=== PATIENT | male | born 1965 | race Caucasian/White ===

== ENCOUNTER → 2018-04-08 10:12 | Outpatient (CLI) | payer OTHER, SELFPAY ==
--- NOTE | 2018-04-08 | DI.RAD.S_ITS ---
PROCEDURE: XR LUMBAR SPINE 2-3V INDICATIONS: BACK PAIN TECHNIQUE: 3 views of the lumbar spine were acquired. COMPARISON: [facility], CR, L-SPINE 2-3 VIEWS, 05/24/2012, 16:40. [facility], MR, L-SPINE WITHOUT CONTRAST, 06/10/2013, 18:56. FINDINGS: Bones: 5 [id number] vertebrae are present. Transitional anatomy with sacralization of L5. There is minimal retrolisthesis of L1 on L2. No vertebral body compression fractures. No suspicious bony lesions. There is mild degenerative disc disease at L1-L2, L2-L3, L3-L4 and L5-L5. Mild facet arthropathy is present at L5-S1. Soft tissues: Overlying bowel gas pattern is normal. No suspicious soft tissue calcifications. IMPRESSION: 1. Mild degenerative disc and facet disease. 2. Transitional anatomy again noted. Dictated by: Tae Guzman M.D. on 04/08/2018 at 15:45 Approved by: Tae Guzman M.D. on 04/08/2018 at 15:48
== END ==
PROVIDERS: Family Provider Family Medicine; PCP Family Medicine; Visit Provider Nurse Practitioner Family
DX: M54.9 Dorsalgia, unspecified (principal); M51.36 Other intervertebral disc degeneration, lumbar region; M47.817 Spondylosis without myelopathy or radiculopathy, lumbosacral region
CPT/HCPCS: 72100

== ENCOUNTER → 2018-10-27 11:39 | Outpatient (CLI) | payer OTHER, MEDICAID, SELFPAY ==
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
== END ==
PROVIDERS: PCP Family Medicine; Visit Provider Family Medicine
DX: N13.8 Other obstructive and reflux uropathy (principal)
CPT/HCPCS: 74176

== ENCOUNTER → 2018-11-23 16:45 | Outpatient (ROUT) | payer OTHER, MEDICAID, SELFPAY | PROVIDERS: PCP Family Medicine; Visit Provider Family Medicine | DX: N39.0 Urinary tract infection, site not specified (principal) | CPT/HCPCS: 87077; 87086; 87185; 87186 ==

== ENCOUNTER → 2019-03-19 09:36 | Outpatient (CLI) | payer OTHER, MEDICAID, SELFPAY ==
--- NOTE | 2019-03-19 | DI.MRI.S_ITS ---
PROCEDURE: MR LUMBAR SPINE WO CON INDICATIONS: RIGHT FOOT DROP,DDD TECHNIQUE: Noncontrast sagittal T1 spin echo and T2 fast echo, sagittal STIR, axial T1 and T2 fast spin echo through the lumbar spine. In cases with scoliosis, additional coronal T2 fast spin echo may be performed. COMPARISON: [facility], , L-SPINE WITHOUT CONTRAST, 06/10/2013, 18:56. FINDINGS: Image quality: Excellent. Alignment and Curvature: There is normal bony alignment. Bone Marrow: Marrow is of normal overall signal. No acute vertebral body compression fractures. Spinal Cord: Conus medullaris terminates at the L1 level. Visualized cord demonstrates normal signal and size. Paraspinous Soft Tissues: No paravertebral masses. Upper pole left renal cortical cysts again noted. These were present in 2013, also. L1-L2: Normal appearance. L2-L3: Normal appearance. L3-L4: Normal appearance except for slight facet osteoarthritis. L4-L5: Moderate degenerative disc disease, with disc height reduction and desiccation on sagittal imaging. Note is made of a broad-based posterior transverse disc bulge/protrusion that extends into the posterolateral recess and neural foramen on the left, combined with bilateral mild facet osteoarthritis to previous near severe foraminal stenosis on the left and only mild to moderate foraminal stenosis on the right. There is likelihood of significant asymmetric L4 nerve root impingement on the left as a result. L5-S1: Normal appearance. IMPRESSION: The degenerative disc disease and facet osteoarthritis along the lumbosacral spine is relatively mild, focally is most prominent at L4-L5 with mild interval worsening of the degenerative changes at this level, left greater than right, to include increase asymmetric left greater than right posterior disc bulge/protrusion and mild interval worsening of asymmetric left greater than right facet osteoarthritis. Significant spinal stenosis is present but mild at the left posterolateral recess, but foraminal stenosis has appreciably worsened with expected left greater than right impingement on the L4 nerve roots as a result. Dictated by: Gab Iyer M.D. on 03/21/2019 at 9:31 Approved by: Gab Iyer M.D. on 03/21/2019 at 9:37
== END ==
PROVIDERS: PCP Family Medicine; Visit Provider Family Medicine
DX: M21.371 Foot drop, right foot (principal); M51.36 Other intervertebral disc degeneration, lumbar region; M48.061 Spinal stenosis, lumbar region without neurogenic claudication; M47.816 Spondylosis without myelopathy or radiculopathy, lumbar region; M51.26 Other intervertebral disc displacement, lumbar region
CPT/HCPCS: 72148

== ENCOUNTER → 2019-05-09 15:40 | Outpatient (CLI) | payer OTHER, MEDICAID, SELFPAY ==
--- NOTE | 2019-05-09 | DI.MRI.S_ITS ---
PROCEDURE: MR LOWER LEG RT WO/W CON INDICATIONS: LESION ON RIGHT POPLITEAL NERVE TECHNIQUE: Noncontrast coronal T1 spin echo and STIR, sagittal T1 spin echo with fat saturation and STIR, axial T1 spin echo and T2 fast spin echo with fat saturation. After the administration of contrast, axial/sagittal/coronal T1 spin echo with fat saturation through the right tibia/fibula. COMPARISON: None. FINDINGS: Image quality: Excellent. Bones: The visualized bone marrow demonstrates normal signal on all sequences. The overlying cortex appears intact. No abnormal intraosseous enhancement. Soft tissues: No soft tissue masses are visualized. There is geographic mild T2 hyperintensity involving the peroneal musculature as well as the tibialis anterior. There is also mild patchy muscle edema present within the medial gastrocnemius for example image 14/8, technically non-specific. No definite muscle atrophy IMPRESSION: Geographic diffuse muscle edema involving the peroneal longus, brevis and tibialis anterior suggestive of mild denervation versus less likely myositis. No discrete mass identified within the popliteal fossa. No definite muscle atrophy seen. Additional patchy muscle edema involving the medial gastrocnemius, nonspecific finding Dictated by: Karlos Lock M.D. on 05/10/2019 at 10:21 Approved by: Karlos Lock M.D. on 05/10/2019 at 11:24
--- NOTE | 2019-05-09 15:46 | DI.CT.S_ITS ---
PROCEDURE: CT KIDNEY URETER BLADDER (KUB) INDICATIONS: KIDNEY STONE Lesion of lateral popliteal nerve TECHNIQUE: Noncontrast 5 mm thick sections acquired from the diaphragms to the symphysis. 5 mm thick coronal and sagittal reformats were then performed. For radiation dose reduction, the following was used: automated exposure control, adjustment of mA and/or kV according to patient size. COMPARISON: [facility], CT, CT KIDNEY URETER BLADDER (KUB), 10/27/2018, 11:52. FINDINGS: Image quality: Excellent. Lung bases: Left posterior lung base scarring. Otherwise clear lung bases. Heart size is normal. Very small pericardial effusion/thickening. Urinary system: Both kidneys are normal in size. In the lower pole of the right kidney, there are 2 large nonobstructing calcifications, the larger measuring 10 mm, and the smaller measuring 9 mm. No left intrarenal collecting system calcifications. There are 2 dominant cortical cysts in the mid and lower aspect of the left kidney and a smaller anterior lower pole cyst. These measure 4.5, 3.7, and 1.9 cm respectively. A few faint parenchymal calcifications are present in the left kidney. No hydronephrosis in either kidney. No hydroureter or ureteral calcifications. Bladder wall thickness is normal; no calcified bladder stones. Mild prostatomegaly. Other solid organs: Liver is normal in size. Gallbladder is decompressed. Pancreas is normal in contours. Spleen is surgically absent. Multiple small amorphous soft tissue masses are present in the left upper quadrant consistent with splenosis. No adrenal nodules. Peritoneum and bowel: Unenhanced bowel loops demonstrate normal wall thickness and caliber. Normal appendix. No free fluid or air. Nodes and vessels: No retroperitoneal or mesenteric adenopathy by size criteria. Aorta and inferior vena cava are normal in caliber. Abdominal wall: No ventral hernias. Pelvis: No free pelvic fluid. No inguinal hernias or adenopathy. Bones: No suspicious bony lesions. No vertebral body compression fractures. IMPRESSION: 1. Nonobstructing right intrarenal calcifications. 2. Left renal cysts. 3. Surgically absent spleen with resultant splenosis. 4. Mild prostatomegaly. Dictated by: Teetee Moya M.D. on 05/09/2019 at 17:30 Approved by: Teetee Moya M.D. on 05/09/2019 at 17:41
== END ==
PROVIDERS: PCP Family Medicine
DX: G57.31 Lesion of lateral popliteal nerve, right lower limb (principal); N20.0 Calculus of kidney; N28.1 Cyst of kidney, acquired; N40.0 Benign prostatic hyperplasia without lower urinary tract symptoms; Z90.81 Acquired absence of spleen
CPT/HCPCS: 73720; 74176; A9579

== ENCOUNTER → 2019-09-03 09:59 | Outpatient (CLI) | payer OTHER, MEDICAID, SELFPAY ==
[2019-09-03 12:04] LABS: Add Manual Diff / Slide Review NO; Basophils Absolute Auto 100 /uL (0-100); Basophils Percent Auto 1.3 % (0-2); Eosinophils Absolute Auto 300 /uL (0-450); Eosinophils Percent Auto 2.6 % (2-4); Hematocrit 43.6 % (41-53); Hemoglobin 14.6 g/dL (13.5-17.5); Lymphocytes Absolute Auto 4300 /uL (1100-4500); Lymphocytes Percent Auto 42.9 % (25-40); Mean Corpuscular HGB Conc 33.5 % (30-36); Mean Corpuscular Hemoglobin 32.5 PG (26-34); Mean Corpuscular Volume 97.2 fL (80-100); Monocytes Absolute Auto 700 /uL (0-900); Monocytes Percent Auto 6.7 % (3-14); Neutrophils Absolute Auto 4600 /uL (1500-7000); Neutrophils Percent Auto 46.5 % (50-75); Platelet Count 311 X10^3/uL (150-400); Red Blood Cell Count 4.48 X10^6/uL (4.5-5.9); Red Cell Distribution Width 13.6 % (11.6-14.8)
[2019-09-03 12:32] LABS: Alanine Aminotransferase 17 IU/L (<50); Albumin 4.1 g/dL (3.5-5.0); Albumin Globulin Ratio 1.8 (1.0-2.8); Alkaline Phosphatase 52 U/L (38-126); Aspartate Aminotransferase 21 IU/L (17-59); BUN Creatinine Ratio 23.2 (6-22); Bilirubin Total 0.6 mg/dL (0.2-1.3); Blood Urea Nitrogen 23 mg/dL (9-20); Calcium 10.5 mg/dL (8.4-10.2); Carbon Dioxide 28 mmol/L (22-32); Chloride 106 mmol/L (98-107); Cholesterol 165 mg/dL (140-199); Estimated Glomerular Filt Rate > 60.0 mL/min (>60); Globulin 2.3 g/dL (1.7-4.1); Glucose 110 mg/dL (70-100); HDL Cholesterol 89 mg/dL (40-60); HEMOLYSIS < 15 (0-50); LDL Cholesterol Calculated 68 mg/dL (<100); Lipase 101 U/L (23-300); Sodium 138 mmol/L (137-145); Total Protein 6.4 g/dL (6.3-8.2); Triglycerides 40 mg/dL (35-150)
[2019-09-03 12:41] LABS: Erythrocyte Sedimentation Rate 1 MM/HR (0-15); LDL Cholesterol Direct 65 mg/dL (<100)
[2019-09-03 13:00] LABS: TSH w/ Reflex to FT4 2.28 uIU/mL (0.47-4.68)
[2019-09-03 13:01] LABS: C-Reactive Protein Quant < 0.5 mg/dL (<1.0)
== END ==
PROVIDERS: PCP Family Medicine; Referring Provider Family Medicine; Visit Provider Family Medicine
DX: R63.4 Abnormal weight loss (principal); M21.371 Foot drop, right foot; N39.0 Urinary tract infection, site not specified; F41.8 Other specified anxiety disorders; E83.52 Hypercalcemia
CPT/HCPCS: 36415; 80053; 80061; 83690; 83721; 84443; 85025; 85651; 86140; 87086

== ENCOUNTER 2019-09-24 10:02 | Emergency (ER) | payer OTHER, SELFPAY ==
[2019-09-24 10:26] VITALS: BP 160/82; PULSE 65; RESP 18; TEMP 36.5; O2SAT 98; BMI 21.5
[2019-09-24 11:00] VITALS: BP 151/73; PULSE 53; O2SAT 97
--- NOTE | 2019-09-24 11:26 | ED_ITS ---
HPI - Back Pain/Injury <JONNY Goel - Last Filed: 09/24/19 12:54> General Chief Complaint: Back Pain/Injury Stated Complaint: THREW OUT BACK AT WORK, CAN HARDLY MOVE Time Seen by Provider: 09/24/19 11:06 Source: patient Mode of arrival: Ambulatory Limitations: no limitations History of Present Illness HPI Narrative: This is a 54 year male, smoker, who has chronic medical history left low back pain since 2012, decreased sensation in right lower leg, kidney stone with lithotripsy presents to ED with chief complain of recurring left low back pain since yesterday morning when he woke up. He reports previous evening it felt a little sore when he went to bed. Reports pain is located in left low back wrapping around his waist without radiation down to his legs as the previous back pain. Pain increases with bending over, twisting, getting up bend down and improves with resting in bed. Patient reports this pain does not feel like stone pain in characters and also in location. Patient had lithotripsy surgery a month ago for kidney stone measuring about 11 mm. He denies hematuria, urgency, frequency, or dysuria. He denies fever, chills, rash, nausea, vomiting, saddle anesthesia, incontinence for bowel and bladder. Patient was seen by Dr. Chinchilla for steroid injection in his back in the past. He was evaluated by Dr. Raphael for his chronic back pain and decrease sensation in his lower right leg and is currently waiting for an evaluation by neurologist. 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 Related Data Home Medications Medication Instructions Recorded Confirmed citalopram 10 mg tablet 10 mg PO DAILY 04/30/18 11/18/18 tamsulosin 0.4 mg capsule 0.4 mg PO DAILY 11/18/18 11/18/18 ibuprofen 200 mg tablet 600 mg PO BID PRN tab 11/23/18 11/23/18 Previous Rx's Medication Instructions Recorded cyclobenzaprine 10 mg PO BID PRN #14 tab 09/24/19 lidocaine 1 patch TOP DAILY #30 each 09/24/19 Allergies Allergy/AdvReac Type Severity Reaction Status Date / Time ciprofloxacin [From Cipro] Allergy Intermediate facial Verified 09/24/19 10:36 redness and burning Review of Systems <JONNY Goel - Last Filed: 09/24/19 12:54> Review of Systems Narrative: General: Denies fever, chills, fatigue, malaise, sweats. HEENT: Denies sinus pain, ear pain, sore throat, difficulty swallowing, dizziness. Respiratory: Denies dyspnea, cough, wheezing, hemoptysis, sputum. Cardiovascular: Denies chest pain, palpitations, orthopnea, edema. Gastrointestinal: Denies nausea, vomiting, abdominal pain, diarrhea, constipation, melena. : Denies dysuria, frequency, incontinence, hematuria, urinary retention. Musculoskeletal: See HPI Skin: Denies rash, skin lesions, or other. Neurologic: Denies weakness, headache, numbness, change in speech, confusion, seizures, incoordination. Psychiatric: No concerning psychosocial issues. 12-point review of systems is negative except for those stated above. Patient History <JONNY Goel - Last Filed: 09/24/19 12:54> Medical History Back pain (Acute) Kidney stone (Acute) Radiculopathy of leg (Acute) Surgical History H/O lithotripsy (Acute) Social History Smoking Status: Current every day smoker Smoking Status: Current every day smoker alcohol intake frequency: 0-2 drinks per day Substance Use Type: does not use Exam <JONNY Goel - Last Filed: 09/24/19 12:54> Narrative Exam Narrative: General appearance: well developed, well nourished, in no acute distress. Head: normocephalic, atraumatic, no scalp lesions, non-tender. ENT: Hearing grossly intact. Airway patent. Neck/Thyroid: neck supple, full range of motion, no visible masses or meningeal signs. No JVD, non-tender without lymphadenopathy. Skin: no suspicious rashes, lesions over visible areas. Warm and dry and appropriate color for ethnicity. Heart: no clubbing, no cyanosis, no edema. Lungs: Breathing even and unlabored. No stridor. No accessory muscles used. Able to speak in full sentences. Chest: normal shape and expansion. Abdomen: non-obese, non-distended. Neurologic: alert and oriented. 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 Psych: good eye contact, normal affect. Initial Vital Signs Initial Vital Signs: Vital Signs Temperature 97.7 F 09/24/19 10:26 Pulse Rate 65 09/24/19 10:26 Respiratory Rate 18 09/24/19 10:26 Blood Pressure 160/82 H 09/24/19 10:26 Pulse Oximetry 98 09/24/19 10:26 Back/Spine/Pelvis Back: normal to inspection, back tenderness, No crepitance, No CVA tenderness, No ecchymosis, No erythema, No mass and No warmth Thoracic/Lumbar Spine: thoracic and lumbar spine normal to inspection, bend over test abnormal, pain with thoraco-lumbar ROM, paraspinal tenderness (left lower lumbar), thoraco-lumbar ROM limited, No lumbar spinal tenderness and straight leg raise positive <Мария Fitch DO - Last Filed: 09/28/19 07:14> Initial Vital Signs Initial Vital Signs: Vital Signs Temperature 97.7 F 09/24/19 10:26 Pulse Rate 65 09/24/19 10:26 Respiratory Rate 18 09/24/19 10:26 Blood Pressure 160/82 H 09/24/19 10:26 Pulse Oximetry 98 09/24/19 10:26 Scores <JONNY Goel - Last Filed: 09/24/19 12:54> GCS Florentino coma scale eye opening: Spontaneous [place] coma scale verbal response: Orientated [place] coma scale motor response: Obey commands [place] coma scale total score: 15 Course <JONNY Goel - Last Filed: 09/24/19 12:54> Orders Ordered: Discontinued Medications Acetaminophen (Tylenol) 650 mg PO NOW ONE Stop: 09/24/19 11:22 Last Admin: 09/24/19 11:41 Dose: 650 mg Documented by: VERONICA Ketorolac Tromethamine (Toradol) 30 mg IM NOW ONE Stop: 09/24/19 11:22 Last Admin: 09/24/19 11:40 Dose: 30 mg Documented by: VERONICA Lidocaine (Lidoderm) 1 each TOP NOW ONE Stop: 09/24/19 11:23 Last Admin: 09/24/19 11:40 Dose: 1 each Documented by: VERONICA Vital Signs Vital signs: Vital Signs - 8 hr 09/24/19 10:26 09/24/19 11:00 Temperature 97.7 F Pulse Rate 65 53 L Respiratory Rate 18 Blood Pressure 160/82 H 151/73 H Pulse Oximetry 98 97 <Мария Fitch DO - Last Filed: 09/28/19 07:14> Orders Ordered: Discontinued Medications Acetaminophen (Tylenol) 650 mg PO NOW ONE Stop: 09/24/19 11:22 Last Admin: 09/24/19 11:41 Dose: 650 mg Documented by: VERONICA Ketorolac Tromethamine (Toradol) 30 mg IM NOW ONE Stop: 09/24/19 11:22 Last Admin: 09/24/19 11:40 Dose: 30 mg Documented by: VERONICA Lidocaine (Lidoderm) 1 each TOP NOW ONE Stop: 09/24/19 11:23 Last Admin: 09/24/19 11:40 Dose: 1 each Documented by: VERONICA Vital Signs Vital signs: Vital Signs - 8 hr 09/24/19 10:26 09/24/19 11:00 Temperature 97.7 F Pulse Rate 65 53 L Respiratory Rate 18 Blood Pressure 160/82 H 151/73 H Pulse Oximetry 98 97 MDM - Back Pain/Injury <JONNY Goel - Last Filed: 09/24/19 12:54> Differential Diagnosis Differential diagnosis: Likely lumbar radiculopathy, strain of lumbar region and other (Degenerative disc disease, herniated disc, spinal stenosis, kidney stone, pyelonephritis) Medical Records Attestation: I reviewed the patient's medical records. Lab Data Labs: Lab Results 09/24/19 09/24/19 Range/Units 11:30 11:30 Urine Color Cancelled Urine Appearance Cancelled Urine pH Cancelled Ur Specific [place] Cancelled Urine Protein Cancelled Urine Glucose (UA) Cancelled Urine Ketones Cancelled Urine Occult Blood Cancelled Urine Nitrate Cancelled Urine Bilirubin Cancelled Urine Urobilinogen Cancelled Ur Leukocyte Esterase Cancelled Urine RBC None seen Cancelled (0-5/HPF) Urine WBC 0-1/hpf Cancelled (0-5/HPF) Ur Squamous Epith Cells None seen Cancelled (0-5/HPF) Ur Transition Epith Cell Cancelled Ur Renal Epithelial Cell Cancelled Calcium Oxalate Crystal Cancelled Uric Acid Crystals Cancelled Triple Phos Crystals Cancelled Other Crystals Cancelled Amorphous Sediment Cancelled Urine Bacteria None seen Cancelled (None) Hyaline Casts Cancelled Granular Casts Cancelled RBC Casts Cancelled WBC Casts Cancelled Other Casts Cancelled Urine Mucus Cancelled Urine Trichomonas Cancelled Urine Yeast Cancelled Urine Sperm Cancelled Ur Culture Indicated? Cult not indicated Cancelled Micro UA Comment Cancelled Urine Dip Bedside Urine Glucose Negative Bedside Urine Bilirubin - Negative Bedside Urine Ketone - Negative Urine Specific [place] 1.010 Bedside Urine Occult Blood - Negative Bedside Urine pH 7.0 Bedside Urine Protein - Negative Bedside Urine Urobilinogen - Negative Bedside Urine Nitrite - Negative Bedside Urine Leukocytes +/- 15 Esterase MDM Narrative Medical decision making narrative: This is a 54 year male who presents to ED with nontraumatic left low lumbar discomfort since yesterday morning. 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 Patient has history of kidney stone but it does not appears to be this is the etiology. No hematuria or indication for UTI/pyelonephritis. Lumbar MRI test that was done in March 2019 indicates patient has degenerative disc disease most prominent at L4-L5 level worse in left side and asymmetric posterior disc bulge/protrusion and facet osteoarthritis. Also, there is mild spinal stenosis present on the L4 nerve roots. Since patient drove to ED, patient was medicated with toward our, Tylenol and lidocaine patch. Patient states he had taken Vicodin from kidney stone surgery yesterday for severe pain. Reports he has about 10 pills left. Discharging patient to home with work off note for rest, muscle relaxant Flexeril, lidocaine patch and advised to use [id number] Tylenol and or Motrin as needed. [place] Vicodin use for severe pain as needed but is not prescribing this today. Advised to follow up with primary care physician or contact Dr. Raphael if his back pain does not improve as expected. Patient reports pain has improved before leaving ED. No further questions expressed and he agrees with the treatment plan. <Мария Fitch, - Last Filed: 09/28/19 07:14> Lab Data Labs: Lab Results 09/24/19 09/24/19 Range/Units 11:30 11:30 Urine Color Cancelled Urine Appearance Cancelled Urine pH Cancelled Ur Specific [place] Cancelled Urine Protein Cancelled Urine Glucose (UA) Cancelled Urine Ketones Cancelled Urine Occult Blood Cancelled Urine Nitrate Cancelled Urine Bilirubin Cancelled Urine Urobilinogen Cancelled Ur Leukocyte Esterase Cancelled Urine RBC None seen Cancelled (0-5/HPF) Urine WBC 0-1/hpf Cancelled (0-5/HPF) Ur Squamous Epith Cells None seen Cancelled (0-5/HPF) Ur Transition Epith Cell Cancelled Ur Renal Epithelial Cell Cancelled Calcium Oxalate Crystal Cancelled Uric Acid Crystals Cancelled Triple Phos Crystals Cancelled Other Crystals Cancelled Amorphous Sediment Cancelled Urine Bacteria None seen Cancelled (None) Hyaline Casts Cancelled Granular Casts Cancelled RBC Casts Cancelled WBC Casts Cancelled Other Casts Cancelled Urine Mucus Cancelled Urine Trichomonas Cancelled Urine Yeast Cancelled Urine Sperm Cancelled Ur Culture Indicated? Cult not indicated Cancelled Micro UA Comment Cancelled Urine Dip Bedside Urine Glucose Negative Bedside Urine Bilirubin - Negative Bedside Urine Ketone - Negative Urine Specific [place] 1.010 Bedside Urine Occult Blood - Negative Bedside Urine pH 7.0 Bedside Urine Protein - Negative Bedside Urine Urobilinogen - Negative Bedside Urine Nitrite - Negative Bedside Urine Leukocytes +/- 15 Esterase Discharge Plan Departure Patient Disposition: Home Clinical Impression: Repetitive strain injury of lower back Qualifiers: Encounter type: initial encounter Qualified Code(s): S39.012A - Strain of muscle, fascia and tendon of lower back, initial encounter Discharge Date/Time: 09/24/19 13:16 Activity Restrictions/Additional Instructions: You have been diagnosed with [low back/lumbar strain. Urine test does not indicate infection and no hematuria.]. What to do: *Take your medications as directed. The prescription for Flexeril which is muscle relaxant and lidocaine patch for pain have been transmitted to [facility]. Please use this medications as needed. Lidocaine patch stays on for 12 hours and off for 12 hours. Please use [id number] Tylenol 650-1000 mg as needed up to 3 to 4 times a day. For an adult max dose of Tylenol is up to 3-4000 mg in 24 hour. Ibuprofen/Motrin 400-600 mg up to 3 times a day as needed with food for pain to decrease upsetting stomach. 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 Please use your Vicodin as needed for severe pain and Vicodin has Tylenol already mixed in. you can use warm pack/cool pack as needed for discomfort. *Follow up with your primary care provider in 2-3 days, call for an appointment. Let them know you were seen in the ED and that we asked you to be seen in follow up. *Return to ED if you have any new, worsening, or concerning symptoms, such as [chest pain, breathing difficulty, unable to tolerate fluids, incontinence, fever, rash, worsening weakness/numbness to lower extremities or any acute concerns]. Prescriptions: New cyclobenzaprine 10 mg tablet 10 mg PO BID PRN (Reason: muscle spasm) Qty: 14 RF: 0 lidocaine 5 % adhesive patch,medicated 1 patch TOP DAILY Qty: 30 RF: 0 No Action citalopram 10 mg tablet 10 mg PO DAILY RF: 0 tamsulosin [Flomax] 0.4 mg capsule 0.4 mg PO DAILY RF: 0 ibuprofen 200 mg tablet 600 mg PO BID PRNRF: 0 Referrals: Liliya Young MD [Primary Care Provider] - Stand Alone Forms: Work Release Note <Мария Fitch DO - Last Filed: 09/28/19 07:14> Cosign ED Attending Zeldaature Attestation: I WAS IMMEDIATELY AVAILABLE IN THE DEPARTMENT FOR CONSULTATION. DOCUMENTATION HAS BEEN REVIEWED. I AGREE WITH ASSESSMENT AND PLAN.
[2019-09-24] MEDS: KETOROLAC 60 MG/2 ML VIAL 30 MG IM (11:40)
[2019-09-24] MEDS: LIDOCAINE PATCH 1 EACH ADH..PATCH TOP (11:40)
[2019-09-24] MEDS: ACETAMINOPHEN 325 MG TABLET 650 MG PO (11:41)
[2019-09-24 12:31] LABS: Bacteria Urine None Seen; Culture Indicated Urine Cult Not Indicated; RBC Urine None Seen (0-5/HPF); Squamous Epithelial Cell Urine None Seen (0-5/HPF); WBC Urine 0-1/HPF (0-5/HPF)
[2019-09-24 12:58] VITALS: BP 153/77; PULSE 55; RESP 14; O2SAT 99
== END 2019-09-24 13:16 | disposition home or self-care (01) ==
PROVIDERS: Emergency Provider Nurse Practitioner Family; PCP Family Medicine
DX: S39.012A Strain of muscle, fascia and tendon of lower back, initial encounter (principal); X50.0XXA Overexertion from strenuous movement or load, initial encounter; Y99.0 Civilian activity done for income or pay
CPT/HCPCS: 81003; 81015; 96372; 99283; J1885

== ENCOUNTER → 2019-09-26 11:37 | Outpatient (CLI) | payer OTHER, SELFPAY ==
[2019-09-26 12:03] LABS: Ur Creatinine Normal (Normal); Ur Specific Gravity Normal (Normal); Urine pH Normal (Normal)
[2019-09-26 12:05] LABS: UR Morphine/Opiate cutoff 300 Negative (Negative); Urine Amphetamines Negative (Negative); Urine Barbiturates Negative (Negative); Urine Benzodiazepines Negative (Negative); Urine Cocaine Negative (Negative); Urine MDMA Negative (Negative); Urine Methadone Negative (Negative); Urine Methamphetamines Negative (Negative); Urine Oxycodone Negative (Negative); Urine Phencyclidine Negative (Negative); Urine Tetrahydrocannabinol Negative (Negative); Urine Tricyclic Antidepressant Negative (Negative)
== END ==
PROVIDERS: PCP Family Medicine; Referring Provider Nurse Practitioner; Visit Provider Nurse Practitioner
DX: Z04.89 Encounter for examination and observation for other specified reasons (principal)
CPT/HCPCS: 80305

== ENCOUNTER → 2019-10-04 11:57 | Outpatient (CLI) | payer OTHER, SELFPAY ==
--- NOTE | 2019-10-04 | DI.RAD.S_ITS ---
PROCEDURE: XR LUMBAR SPINE 2-3V INDICATIONS: BACK PAIN TECHNIQUE: 3 views of the lumbar spine were acquired. COMPARISON: [facility], MR, L-SPINE WITHOUT CONTRAST, 06/10/2013, 18:56. [facility], CR, L-SPINE 2-3 VIEWS, 05/24/2012, 16:40. [facility], CR, CHEST 2 VIEW, 04/23/2015, 12:36. [facility], , XR LUMBAR SPINE 2-3V, 04/08/2018, 10:24. FINDINGS: Bones: 5 [id number] vertebrae are present. There is transitional anatomy with sacralization of L5. There is minimal retrolisthesis of L1-L2. No vertebral body compression fractures. No suspicious bony lesions. Mild degenerative disc disease at L2-L3, L3-L4 and L4-L5. Mild facet arthropathy at L3-L4 and L4-L5. Soft tissues: Overlying bowel gas pattern is normal. No suspicious soft tissue calcifications. IMPRESSION: 1. Transitional anatomy with sacralization of L5. 2. Mild degenerative disc and facet disease. Dictated by: Tae Guzman M.D. on 10/04/2019 at 14:24 Approved by: Tae Guzman M.D. on 10/04/2019 at 14:38
== END ==
PROVIDERS: PCP Family Medicine; Referring Provider Family Medicine; Visit Provider Family Medicine
DX: M54.5 Low back pain (principal); M51.36 Other intervertebral disc degeneration, lumbar region; M47.816 Spondylosis without myelopathy or radiculopathy, lumbar region; M43.27 Fusion of spine, lumbosacral region
CPT/HCPCS: 72100

== ENCOUNTER 2019-10-28 09:00 | Outpatient (RCR) | payer OTHER, MEDICAID, SELFPAY ==
--- NOTE | 2019-10-14 10:14 | PT.OIE ---
Current Diagnoses Pain in left elbow (10/14/19) Muscle weakness (generalized) (10/14/19) Medial epicondylitis, left elbow (10/14/19) Lateral epicondylitis, left elbow (10/14/19) Past Medical History (Last Reviewed 09/24/19 @ 11:37 by JONNY Goel) Back pain (Acute) Kidney stone (Acute) Radiculopathy of leg (Acute) Past Surgical History (Last Reviewed 09/24/19 @ 11:37 by JONNY Goel) H/O lithotripsy (Acute) Visit Care Team Role Provider Type Liliya Young MD Attending Provider Physician Primary Care Provider Referring Provider Specialty: [facility] Address: [address] [place] [address], [facility] Email: [email or web address] [facility] Initial Evaluation PT-OP-A Visit Information Start: 10/14/19 09:39 Freq: Status: Active Protocol: Document 10/14/19 09:00 DCW (Rec: 10/14/19 10:14 [facility] [id number]) Out-Patient Physical Therapy Visit Information Visit Information Visit Type Initial Evaluation Visit Start Time 09:00 Visit Stop Time 09:40 Total Visit Minutes 40 Visit Number 1 Number of ACCOUNT EXECUTIVE KEY ACCOUNTS Visits 40 Evaluation Information Evaluation Date 10/14/19 PT-OP-B Current Condition Start: 10/14/19 09:39 Freq: Status: Active Protocol: Document 10/14/19 09:00 DCW (Rec: 10/14/19 10:14 [facility] [id number]) Current Condition History of Current Condition Onset Date 6 months Current Complaints L elbow pain History of Current Condition Pt is a 54 year old male presenting with a six month history of worsening left medial elbow pain. 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 Pt reports the pain just started fairly mildly one day, and just continued to get worse as he continued to work. Pt does not he has not been working the last three weeks, which has helped reduce his pain, but he still gets pretty sore whenever he has to use his arm. Admits that he just uses his right arm when the pain gets too bad, so it doesn 't really restrict his function. Treatment Goals Patient/Caregiver Goals I want to get back to working without this pain. PT-OP-C Subjective Start: 10/14/19 09:39 Freq: Status: Active Protocol: Document 10/14/19 09:00 DCW (Rec: 10/14/19 10:14 [facility] [id number]) OP-PT Subjective Patient Comments Patient Comments I assumed it would be gone by now, but it just will not get better. Patient Reported Progress Worse Patient Questionnaires Quick Dash- Upper Extremity Quick Dash UE Score 52.27 Quick Dash UE Impairment 40 to 59% Impaired (Score 40- 59) OP-PT Pain Assessment Pain Assessment Grid Paper Pain Assessment Grid Completed Yes Location Left Medial Elbow Intensity 4 Scale Used Numeric (0 - 10) Description Aching Pain Aggravating Factors ADL's,Activity Pain Alleviating Factors Rest PT-OP-F Manual Assessment Start: 10/14/19 09:39 Freq: Status: Active Protocol: Document 10/14/19 09:00 DCW (Rec: 10/14/19 10:14 [facility] [id number]) Manual Assessments Soft Tissue Assessment Soft Tissue Mobility Assessment Flexor Carpi Radialis moderate tone notable with palpation, tenderness 2/3: pain with wincing. Tenderness 3/4: Wincing and Withdraw along common flexor tendon and medial epicondyle PT-OP-K Range of Motion Start: 10/14/19 09:39 Freq: Status: Active Protocol: Document 10/14/19 09:00 DCW (Rec: 10/14/19 10:14 [facility] [id number]) Elbow/Forearm Range of Motion Elbow/Forearm Left Active Elbow/Forearm ROM WFL Yes ROM Testing Position Sitting Wrist Goniometric Range of Motion Wrist Left Wrist ROM WFL Yes ROM Limitations Comments Complaint of pain at end-range wrist flexion and radial deviation PT-OP-L Special Tests Start: 10/14/19 09:39 Freq: Status: Active Protocol: Document 10/14/19 09:00 DCW (Rec: 10/14/19 10:14 [facility] [id number]) Special Tests Elbow Special Tests Medial Epicondylitis Test Results Positive L PT-OP-M Strength Start: 10/14/19 09:39 Freq: Status: Active Protocol: Document 10/14/19 09:00 DCW (Rec: 10/14/19 10:14 [facility] [id number]) Elbow/Forearm Strength Elbow and Forearm Manual Muscle Testing Left Flexion (C6) 5 Normal Extension (C7) 5 Normal Pronation 4+ Good+ Supination 4+ Good+ Wrist Strength Wrist Manual Muscle Testing Left Flexion (C7) 4 Good Extension (C6) 5 Normal Ulnar Deviation 4+ Good+ Radial Deviation 4 Good Comments Complaint of pain with resisted flexion, radial deviation Hand Software Licensing Analyst/Pinch Strength Hand Dominance Hand Dominance Right Hand Strength Right Software Licensing Analyst (lbs) 105 Comments 3-trail average (100, 105, 110 ) Left Software Licensing Analyst (lbs) 76.67 Comments 3-trail average (75,75,80) PT-OP-Q Treatments Start: 10/14/19 09:39 Freq: Status: Active Protocol: Document 10/14/19 09:00 [facility] (Rec: 10/14/19 10:14 [facility] [id number]) Therapeutic Exercises Sitting Exercises 2 Sitting Exercise Name Software Licensing Analyst Strengthening Side left Resistance Green Thera-putty 1 Sitting Exercise Name Supination/Pronation Side left Equipment Used Hammer Manual Therapy Treatment Soft Tissue Mobilization 1 Body Location Common flexor tendon Mobilization Type Cross-Friction Intensity/Depth Moderate Body Position Sitting Taping 1 Body Location Medial Epicondyle Type of Tape Kinesio Tape PT-OP-T Assessment and Plan Start: 10/14/19 09:39 Freq: Status: Active Protocol: Document 10/14/19 09:00 [facility] (Rec: 10/14/19 10:14 [facility] [id number]) Physical Therapy Assessment Rehab Potential Rehabilitation Potential Good Evaluation Complexity Number of Personal Factors/Comorbidities 1-2 Number of Body Systems Impaired 1-2 Clinical Presentation at Evaluation Stable Impairments Impairments Functional Activities,Pain, Soft Tissue Mobility,Strength Goals Three Impairment FCR has moderate tone with 2/4 tenderness to palpation Prison Goal (LTG) Pt to exhibit ECR tone WNL and no tenderness LTG Duration 12/14/19 Two Impairment Pt has a left foundation assistant strength 38 pounds less than his right foundation assistant Instant Print Operator Goal (LTG) Pt to increase left foundation assistant strength to 95 pounds to demonstrate increased ability to perform job activities without pain LTG Duration 12/14/19 One Impairment Pt does not have an appropriate home exercise program Short Term Goal (STG) Pt to be independent and compliant with an appropriate HEP STG Duration 11/14/19 Assessment Summary Assessment Pt presents with signs and symptoms strongly consistent with left medial epicondylitis . Pt is restricted with use of left arm in work and during ADLs. Pt's pain is mainly point-specific on medial epicondyle and at the origin of his common flexor tendon. Pt also displays constant moderate tone through his flexor carpi radialis, which is in turn providing a constant shear force on his medial epicondyle. Pt should benefit from skilled therapy focusing on gentle strengthening while avoiding repetitive movements, STM to decrease tone, modalities including ultrasound and Iontophoresis, to help reduce tone and inflammation. Physical Therapy Plan Frequency and Duration Frequency of Treatment 2x/Week Duration of Treatment 8 weeks Plan of Care Start Date 10/14/19 Plan of Care End Date 12/09/19 Therapeutic Interventions Therapeutic Interventions Home Exercise Program,Joint Mobilizations,Manual Therapy, Patient/Caregiver Education, Self-Care/Home Management,Soft Tissue Mobilization,Taping, Therapeutic Exercises Modalities Cold Pack/Ice Massage,Electric Stimulation,Hot Packs, Iontophoresis,Ultrasound Other Therapeutic Interventions Iontophoresis /c Dexamethasone , 4 mg/mL Next Visit Focus/Plan Next Note Type Treatment Note Next Visit Plan Iontophoresis, strengthening, STM, US, K-tape
--- NOTE | 2019-10-14 10:15 | PT.OPPOC ---
Physical, Occupational & Speech Therapy At [facility] Current Diagnoses Pain in left elbow (10/14/19) Muscle weakness (generalized) (10/14/19) Medial epicondylitis, left elbow (10/14/19) Lateral epicondylitis, left elbow (10/14/19) Visit Care Team Role Provider Type Liliya Young MD Attending Provider Physician Primary Care Provider Referring Provider Specialty: Family Practice Address: [address] [place] [address], [facility] [place], [place], [facility] Email: [email or web address] Plan Of Care PT-OP-T Assessment and Plan Start: 10/14/19 09:39 Freq: Status: Active Protocol: Document 10/14/19 09:00 DCW (Rec: 10/14/19 10:14 DCW [id number]) Physical Therapy Assessment Rehab Potential Rehabilitation Potential Good Evaluation Complexity Number of Personal Factors/Comorbidities 1-2 Number of Body Systems Impaired 1-2 Clinical Presentation at Evaluation Stable Impairments Impairments Functional Activities,Pain, Soft Tissue Mobility,Strength Goals Three Impairment FCR has moderate tone with 2/4 tenderness to palpation Aircraft Powerplant Repairer Goal (LTG) Pt to exhibit ECR tone WNL and no tenderness LTG Duration 12/14/19 Two Impairment Pt has a left operations executive strength 38 pounds less than his right operations executive Aircraft Powerplant Repairer Goal (LTG) Pt to increase left operations executive strength to 95 pounds to demonstrate increased ability to perform job activities without pain LTG Duration 12/14/19 One Impairment Pt does not have an appropriate home exercise program Short Term Goal (STG) Pt to be independent and compliant with an appropriate HEP STG Duration 11/14/19 Assessment Summary Assessment Pt presents with signs and symptoms strongly consistent with left medial epicondylitis . Pt is restricted with use of left arm in work and during ADLs. Pt's pain is mainly point-specific on medial epicondyle and at the origin of his common flexor tendon. Pt also displays constant moderate tone through his flexor carpi radialis, which is in turn providing a constant shear force on his medial epicondyle. Pt should benefit from skilled therapy focusing on gentle strengthening while avoiding repetitive movements, STM to decrease tone, modalities including ultrasound and Iontophoresis, to help reduce tone and inflammation. Physical Therapy Plan Frequency and Duration Frequency of Treatment 2x/Week Duration of Treatment 8 weeks Plan of Care Start Date 10/14/19 Plan of Care End Date 12/09/19 Therapeutic Interventions Therapeutic Interventions Home Exercise Program,Joint Mobilizations,Manual Therapy, Patient/Caregiver Education, Self-Care/Home Management,Soft Tissue Mobilization,Taping, Therapeutic Exercises Modalities Cold Pack/Ice Massage,Electric Stimulation,Hot Packs, Iontophoresis,Ultrasound Other Therapeutic Interventions Iontophoresis /c Dexamethasone , 4 mg/mL Next Visit Focus/Plan Next Note Type Treatment Note Next Visit Plan Iontophoresis, strengthening, STM, US, K-tape Plan of Care Dates Plan of Care Start Date 10/14/19 Plan of Care End Date 12/09/19 Electronically Signed by: Jose M Balbuena, PT 10/14/19 1015 Please Sign and Return: I have reviewed this Plan of Care and certify that the skilled therapy services above are required to meet the patient?s needs. Physician Signature Date Printed Name and Credentials Clinical Instructor Signature Printed Name and Credentials
--- NOTE | 2019-10-21 14:33 | PT.OTN ---
Current Diagnoses Pain in left elbow (10/21/19) Muscle weakness (generalized) (10/21/19) Medial epicondylitis, left elbow (10/21/19) Lateral epicondylitis, left elbow (10/21/19) Physical Therapy Treatment Note PT-OP-A Visit Information Start: 10/14/19 09:39 Freq: Status: Active Protocol: Document 10/21/19 13:45 DCW (Rec: 10/21/19 14:32 DCW [id number]) Out-Patient Physical Therapy Visit Information Visit Information Visit Type Treatment Note Visit Start Time 13:45 Visit Stop Time 14:30 Total Visit Minutes 45 Visit Number 2 Number of SUBSTATION OPERATOR Visits 0 PT-OP-B Current Condition Start: 10/14/19 09:39 Freq: Status: Active Protocol: Document 10/14/19 09:00 DCW (Rec: 10/14/19 10:14 DCW [id number]) Current Condition History of Current Condition Onset Date 6 months Current Complaints L elbow pain History of Current Condition Pt is a 54 year old male presenting with a six month history of worsening left medial elbow pain. Pt works in a [employer]. Pt reports the pain just started fairly mildly one day, and just continued to get worse as he continued to work. Pt does not he has not been working the last three weeks, which has helped reduce his pain, but he still gets pretty sore whenever he has to use his arm. Admits that he just uses his right arm when the pain gets too bad, so it doesn 't really restrict his function. Treatment Goals Patient/Caregiver Goals I want to get back to working without this pain. PT-OP-C Subjective Start: 10/14/19 09:39 Freq: Status: Active Protocol: Document 10/21/19 13:45 DCW (Rec: 10/21/19 14:32 DCW [id number]) OP-PT Subjective Patient Comments Patient Comments It's still sore, but I haven' t really been working, so that seems to make a difference. PT-OP-F Manual Assessment Start: 10/14/19 09:39 Freq: Status: Active Protocol: Document 10/14/19 09:00 DCW (Rec: 10/14/19 10:14 DCW [id number]) Manual Assessments Soft Tissue Assessment Soft Tissue Mobility Assessment Flexor Carpi Radialis moderate tone notable with palpation, tenderness 2/3: pain with wincing. Tenderness 3/4: Wincing and Withdraw along common flexor tendon and medial epicondyle PT-OP-K Range of Motion Start: 10/14/19 09:39 Freq: Status: Active Protocol: Document 10/14/19 09:00 DCW (Rec: 10/14/19 10:14 DCW [id number]) Elbow/Forearm Range of Motion Elbow/Forearm Left Active Elbow/Forearm ROM WFL Yes ROM Testing Position Sitting Wrist Goniometric Range of Motion Wrist Left Wrist ROM WFL Yes ROM Limitations Comments Complaint of pain at end-range wrist flexion and radial deviation PT-OP-L Special Tests Start: 10/14/19 09:39 Freq: Status: Active Protocol: Document 10/14/19 09:00 DCW (Rec: 10/14/19 10:14 DCW [id number]) Special Tests Elbow Special Tests Medial Epicondylitis Test Results Positive L PT-OP-M Strength Start: 10/14/19 09:39 Freq: Status: Active Protocol: Document 10/14/19 09:00 DCW (Rec: 10/14/19 10:14 DCW [id number]) Elbow/Forearm Strength Elbow and Forearm Manual Muscle Testing Left Flexion (C6) 5 Normal Extension (C7) 5 Normal Pronation 4+ Good+ Supination 4+ Good+ Wrist Strength Wrist Manual Muscle Testing Left Flexion (C7) 4 Good Extension (C6) 5 Normal Ulnar Deviation 4+ Good+ Radial Deviation 4 Good Comments Complaint of pain with resisted flexion, radial deviation Hand Chief Accounting Officer/Pinch Strength Hand Dominance Hand Dominance Right Hand Strength Right Chief Accounting Officer (lbs) 105 Comments 3-trail average (100, 105, 110 ) Left Chief Accounting Officer (lbs) 76.67 Comments 3-trail average (75,75,80) PT-OP-Q Treatments Start: 10/14/19 09:39 Freq: Status: Active Protocol: Document 10/21/19 13:45 DCW (Rec: 10/21/19 14:32 DCW [id number]) Therapeutic Exercises Sitting Exercises 4 Sitting Exercise Name Flexbar - Bend, twist Side bilateral Resistance Red 3 Sitting Exercise Name 4-way wrist flexion Side left Resistance Lv 3 Equipment Used T-band Comments x20 Manual Therapy Treatment Soft Tissue Mobilization 2 Body Location Medial Epicondyle Mobilization Type Cross-Friction Intensity/Depth Moderate Body Position Sitting 1 Body Location Common flexor tendon Mobilization Type Cross-Friction,Sustained Pressure Intensity/Depth Moderate Body Position Sitting Taping 1 Body Location Medial Epicondyle Type of Tape Kinesio Tape PT-OP-R Modalities Start: 10/14/19 09:39 Freq: Status: Active Protocol: Document 10/21/19 13:45 DCW (Rec: 10/21/19 14:33 DCW [id number]) Ultrasound Therapy Treatment Left Medial Elbow Treatment Duration (minutes) 8 Patient Position Sitting Coupling Medium Ultrasound Gel Applicator Size (cm2) 2 Frequency Setting (mHz) 3 Duty Cycle 50% Intensity Setting (w/cm2) 1 PT-OP-T Assessment and Plan Start: 10/14/19 09:39 Freq: Status: Active Protocol: Document 10/21/19 13:45 DCW (Rec: 10/21/19 14:32 DCW [id number]) Physical Therapy Assessment Impairments Impairments Functional Activities,Pain, Soft Tissue Mobility,Strength Goals Three Impairment FCR has moderate tone with 2/4 tenderness to palpation Biomass Plant Manager Goal (LTG) Pt to exhibit ECR tone WNL and no tenderness LTG Duration 12/14/19 Two Impairment Pt has a left technical assistance consultant strength 38 pounds less than his right technical assistance consultant Senior Living Goal (LTG) Pt to increase left technical assistance consultant strength to 95 pounds to demonstrate increased ability to perform job activities without pain LTG Duration 12/14/19 One Impairment Pt does not have an appropriate home exercise program Short Term Goal (STG) Pt to be independent and compliant with an appropriate HEP STG Duration 11/14/19 Assessment Summary Assessment Pt tolerated treatment well, less tone in forearm today, appears to be doing well with HEP. Physical Therapy Plan Frequency and Duration Frequency of Treatment 2x/Week Duration of Treatment 8 weeks Plan of Care Start Date 10/14/19 Plan of Care End Date 12/09/19 Therapeutic Interventions Therapeutic Interventions Home Exercise Program,Joint Mobilizations,Manual Therapy, Patient/Caregiver Education, Self-Care/Home Management,Soft Tissue Mobilization,Taping, Therapeutic Exercises Modalities Cold Pack/Ice Massage,Electric Stimulation,Hot Packs, Iontophoresis,Ultrasound Other Therapeutic Interventions Iontophoresis /c Dexamethasone , 4 mg/mL Next Visit Focus/Plan Next Note Type Treatment Note Next Visit Plan Iontophoresis, strengthening, STM, US, K-tape
--- NOTE | 2019-10-28 09:44 | PT.OTN ---
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 Pt works in a [employer]. Pt reports the pain just started fairly mildly one day, and just continued to get worse as he continued to work. Pt does not he has not been working the last three weeks, which has helped reduce his pain, but he still gets pretty sore whenever he has to use his arm. Admits that he just uses his right arm when the pain gets too bad, so it doesn 't really restrict his function. Treatment Goals Patient/Caregiver Goals I want to get back to working without this pain. PT-OP-C Subjective Start: 10/14/19 09:39 Freq: Status: Active Protocol: Document 10/28/19 09:00 DCW (Rec: 10/28/19 09:43 DCW [id number]) OP-PT Subjective Patient Comments Patient Comments It's still hurting, but it's doing a lot better. PT-OP-F Manual Assessment Start: 10/14/19 09:39 Freq: Status: Active Protocol: Document 10/14/19 09:00 DCW (Rec: 10/14/19 10:14 DCW [id number]) Manual Assessments Soft Tissue Assessment Soft Tissue Mobility Assessment Flexor Carpi Radialis moderate tone notable with palpation, tenderness 2/3: pain with wincing. Tenderness 3/4: Wincing and Withdraw along common flexor tendon and medial epicondyle PT-OP-K Range of Motion Start: 10/14/19 09:39 Freq: Status: Active Protocol: Document 10/14/19 09:00 DCW (Rec: 10/14/19 10:14 DCW [id number]) Elbow/Forearm Range of Motion Elbow/Forearm Left Active Elbow/Forearm ROM WFL Yes ROM Testing Position Sitting Wrist Goniometric Range of Motion Wrist Left Wrist ROM WFL Yes ROM Limitations Comments Complaint of pain at end-range wrist flexion and radial deviation PT-OP-L Special Tests Start: 10/14/19 09:39 Freq: Status: Active Protocol: Document 10/14/19 09:00 DCW (Rec: 10/14/19 10:14 DCW [id number]) Special Tests Elbow Special Tests Medial Epicondylitis Test Results Positive L PT-OP-M Strength Start: 10/14/19 09:39 Freq: Status: Active Protocol: Document 10/14/19 09:00 DCW (Rec: 10/14/19 10:14 DCW [id number]) Elbow/Forearm Strength Elbow and Forearm Manual Muscle Testing Left Flexion (C6) 5 Normal Extension (C7) 5 Normal Pronation 4+ Good+ Supination 4+ Good+ Wrist Strength Wrist Manual Muscle Testing Left Flexion (C7) 4 Good Extension (C6) 5 Normal Ulnar Deviation 4+ Good+ Radial Deviation 4 Good Comments Complaint of pain with resisted flexion, radial deviation Hand Child Psychiatrist/Pinch Strength Hand Dominance Hand Dominance Right Hand Strength Right Child Psychiatrist (lbs) 105 Comments 3-trail average (100, 105, 110 ) Left Child Psychiatrist (lbs) 76.67 Comments 3-trail average (75,75,80) PT-OP-Q Treatments Start: 10/14/19 09:39 Freq: Status: Active Protocol: Document 10/28/19 09:00 DCW (Rec: 10/28/19 09:43 DCW [id number]) Therapeutic Exercises Sitting Exercises 5 Sitting Exercise Name Medial epicondyle extension stretch Side left 4 Sitting Exercise Name Flexbar - Bend, twist Side bilateral Resistance Red Manual Therapy Treatment Soft Tissue Mobilization 2 Body Location Medial Epicondyle Mobilization Type Cross-Friction Intensity/Depth Moderate Body Position Sitting 1 Body Location Common flexor tendon Mobilization Type Cross-Friction,Sustained Pressure Intensity/Depth Moderate Body Position Sitting Taping 1 Body Location Medial Epicondyle Type of Tape Kinesio Tape PT-OP-R Modalities Start: 10/14/19 09:39 Freq: Status: Active Protocol: Document 10/28/19 09:00 DCW (Rec: 10/28/19 09:44 DCW [id number]) Ultrasound Therapy Treatment Left Medial Elbow Treatment Duration (minutes) 8 Patient Position Sitting Coupling Medium Ultrasound Gel Applicator Size (cm2) 2 Frequency Setting (mHz) 3 Duty Cycle 50% Intensity Setting (w/cm2) 1 PT-OP-T Assessment and Plan Start: 10/14/19 09:39 Freq: Status: Active Protocol: Document 10/28/19 09:00 DCW (Rec: 10/28/19 09:43 DCW [id number]) Physical Therapy Assessment Impairments Impairments Functional Activities,Pain, Soft Tissue Mobility,Strength Goals Three Impairment FCR has moderate tone with 2/4 tenderness to palpation Care Home Goal (LTG) Pt to exhibit ECR tone WNL and no tenderness LTG Duration 12/14/19 Two Impairment 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 Notes noticeable, yet slow, progress. Physical Therapy Plan Frequency and Duration Frequency of Treatment 2x/Week Duration of Treatment 8 weeks Plan of Care Start Date 10/14/19 Plan of Care End Date 12/09/19 Therapeutic Interventions Therapeutic Interventions Home Exercise Program,Joint Mobilizations,Manual Therapy, Patient/Caregiver Education, Self-Care/Home Management,Soft Tissue Mobilization,Taping, Therapeutic Exercises Modalities Cold Pack/Ice Massage,Electric Stimulation,Hot Packs, Iontophoresis,Ultrasound Other Therapeutic Interventions Iontophoresis /c Dexamethasone , 4 mg/mL Next Visit Focus/Plan Next Note Type Treatment Note Next Visit Plan Iontophoresis, strengthening, STM, US, K-tape
--- NOTE | 2019-11-11 08:15 | PT.OTN ---
Current Diagnoses Pain in left elbow (10/28/19) Muscle weakness (generalized) (10/28/19) Medial epicondylitis, left elbow (10/28/19) Lateral epicondylitis, left elbow (10/28/19) Physical Therapy Treatment Note PT-OP-A Visit Information Start: 10/14/19 09:39 Freq: Status: Active Protocol: Document 11/11/19 07:31 SP (Rec: 11/11/19 10:33 SP [id number]) Out-Patient Physical Therapy Visit Information Visit Information Visit Type Treatment Note Visit Note Alternate LB (LNI) and L elbow tx's. Next appt LB 11/16. Visit Start Time 07:31 Visit Stop Time 08:15 Total Visit Minutes 44 Visit Number 4 Number of ECONOMIC FORECASTER Visits 1 PT-OP-B Current Condition Start: 10/14/19 09:39 Freq: Status: Active Protocol: Document 10/14/19 09:00 DCW (Rec: 10/14/19 10:14 DCW [id number]) Current Condition History of Current Condition Onset Date 6 months Current Complaints L elbow pain History of Current Condition Pt is a 54 year old male presenting with a six month history of worsening left medial elbow pain. Pt works in a [employer]. Pt reports the pain just started fairly mildly one day, and just continued to get worse as he continued to work. Pt does not he has not been working the last three weeks, which has helped reduce his pain, but he still gets pretty sore whenever he has to use his arm. Admits that he just uses his right arm when the pain gets too bad, so it doesn 't really restrict his function. Treatment Goals Patient/Caregiver Goals I want to get back to working without this pain. PT-OP-C Subjective Start: 10/14/19 09:39 Freq: Status: Active Protocol: Document 11/11/19 07:31 SP (Rec: 11/11/19 10:33 SP [id number]) OP-PT Subjective Patient Comments Patient Comments Pt reported can now move R ankle into DF AROM since last tx, very pleased but wants to work on strengthening and balance to improve walking on R LE. My L elbow doesn't hurt if isn't doing anything but when tries for instance opening up a jar hurts about 5/10 pain. PT-OP-F Manual Assessment Start: 10/14/19 09:39 Freq: Status: Active Protocol: Document 10/14/19 09:00 DCW (Rec: 10/14/19 10:14 [facility] [id number]) Manual Assessments Soft Tissue Assessment Soft Tissue Mobility Assessment Flexor Carpi Radialis moderate tone notable with palpation, tenderness 2/3: pain with wincing. Tenderness 3/4: Wincing and Withdraw along common flexor tendon and medial epicondyle PT-OP-K Range of Motion Start: 10/14/19 09:39 Freq: Status: Active Protocol: Document 10/14/19 09:00 DCW (Rec: 10/14/19 10:14 [facility] [id number]) Elbow/Forearm Range of Motion Elbow/Forearm Left Active Elbow/Forearm ROM WFL Yes ROM Testing Position Sitting Wrist Goniometric Range of Motion Wrist Left Wrist ROM WFL Yes ROM Limitations Comments Complaint of pain at end-range wrist flexion and radial deviation PT-OP-L Special Tests Start: 10/14/19 09:39 Freq: Status: Active Protocol: Document 10/14/19 09:00 DCW (Rec: 10/14/19 10:14 [facility] [id number]) Special Tests Elbow Special Tests Medial Epicondylitis Test Results Positive L PT-OP-M Strength Start: 10/14/19 09:39 Freq: Status: Active Protocol: Document 10/14/19 09:00 DCW (Rec: 10/14/19 10:14 [facility] [id number]) Elbow/Forearm Strength Elbow and Forearm Manual Muscle Testing Left Flexion (C6) 5 Normal Extension (C7) 5 Normal Pronation 4+ Good+ Supination 4+ Good+ Wrist Strength Wrist Manual Muscle Testing Left Flexion (C7) 4 Good Extension (C6) 5 Normal Ulnar Deviation 4+ Good+ Radial Deviation 4 Good Comments Complaint of pain with resisted flexion, radial deviation Hand Sheet Metal Apprentice/Pinch Strength Hand Dominance Hand Dominance Right Hand Strength Right Sheet Metal Apprentice (lbs) 105 Comments 3-trail average (100, 105, 110 ) Left Sheet Metal Apprentice (lbs) 76.67 Comments 3-trail average (75,75,80) PT-OP-Q Treatments Start: 10/14/19 09:39 Freq: Status: Active Protocol: Document 11/11/19 07:31 SP (Rec: 11/11/19 10:33 SP [id number]) Therapeutic Exercises Sitting Exercises 5 Sitting Exercise Name Medial epicondyle extension stretch Side left 3 Sitting Exercise Name 4-way wrist flexion Side left Resistance Lv 3 Equipment Used T-band Comments x20 each direction Manual Therapy Treatment Soft Tissue Mobilization 2 Body Location Medial Epicondyle Mobilization Type Cross-Friction Intensity/Depth Moderate Body Position Sitting 1 Body Location Common flexor tendon Mobilization Type Cross-Friction,Sustained Pressure Intensity/Depth Moderate Body Position Sitting Joint Mobilizations med, lat, inferior mobes Joint L Grade II Body Position Supine Comments using mob strap PT-OP-R Modalities Start: 10/14/19 09:39 Freq: Status: Active Protocol: Document 11/11/19 07:31 SP (Rec: 11/11/19 10:33 SP [id number]) Ultrasound Therapy Treatment Left Medial Elbow Treatment Duration (minutes) 8 Patient Position Sitting Coupling Medium Ultrasound Gel Applicator Size (cm2) 2 Frequency Setting (mHz) 3 Duty Cycle 50% Intensity Setting (w/cm2) 1 PT-OP-T Assessment and Plan Start: 10/14/19 09:39 Freq: Status: Active Protocol: Document 11/11/19 07:31 SP (Rec: 11/11/19 10:33 SP [id number]) Physical Therapy Assessment Goals Three Impairment FCR has moderate tone with 2/4 tenderness to palpation Long-Term Goal (LTG) Pt to exhibit ECR tone WNL and no tenderness LTG Duration 12/14/19 Two Impairment Pt has a left etcher electrolytic strength 38 pounds less than his right etcher electrolytic Electric Shaver Mechanic Goal (LTG) Pt to increase left etcher electrolytic strength to 95 pounds to demonstrate increased ability to perform job activities without pain LTG Duration 12/14/19 One Impairment Pt does not have an appropriate home exercise program Short Term Goal (STG) Pt to be independent and compliant with an appropriate HEP STG Duration 11/14/19 Assessment Summary Assessment Pt tolerated tx well, initiated medial, lateral, inferior ulnar-humeral mobes for decreased tightness reported in L elbow with report of no pain does feel little distraction stretch was helpful. Cuing given for set up and alignment during HEP 4 way wrist with resistance. Pt reports US does seem to help, responded well elbow feels litte looser at end of tx. Physical Therapy Plan Frequency and Duration Frequency of Treatment 2x/Week Duration of Treatment 8 weeks Plan of Care Start Date 10/14/19 Plan of Care End Date 12/09/19 Therapeutic Interventions Therapeutic Interventions Home Exercise Program,Joint Mobilizations,Manual Therapy, Patient/Caregiver Education, Self-Care/Home Management,Soft Tissue Mobilization,Taping, Therapeutic Exercises Modalities Cold Pack/Ice Massage,Electric Stimulation,Hot Packs, Iontophoresis,Ultrasound Other Therapeutic Interventions Iontophoresis /c Dexamethasone , 4 mg/mL Next Visit Focus/Plan Next Note Type Treatment Note Next Visit Plan Assess response to elbow tx next appt and NMES on R ankle DF and SLS added to HEP previous appt. Continue per PT POC: core strengthening, R LE DF activities, flexibility and improve R LE DF to support LS stabiliztaion. Recommended L SIJ release distraction if needed.
--- NOTE | 2020-04-19 15:03 | PT.OPDS ---
Current Diagnoses Pain in left elbow (10/28/19) Muscle weakness (generalized) (10/28/19) Medial epicondylitis, left elbow (10/28/19) Lateral epicondylitis, left elbow (10/28/19) Visit Care Team Role Provider Type Liliya Young MD Attending Provider Physician Primary Care Provider Referring Provider Specialty: [facility] Address: [address] [place] [address], [place], [place], [facility] Email: [email or web address] Visit Number Visit Number 4 Discharge Summary PT-OP-B Current Condition Start: 10/14/19 09:39 Freq: Status: Active Protocol: Document 10/14/19 09:00 DCW (Rec: 10/14/19 10:14 DCW [id number]) Current Condition History of Current Condition Onset Date 6 months Current Complaints L elbow pain History of Current Condition Pt is a 54 year old male presenting with a six month history of worsening left medial elbow pain. 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 Pt reports the pain just started fairly mildly one day, and just continued to get worse as he continued to work. Pt does not he has not been working the last three weeks, which has helped reduce his pain, but he still gets pretty sore whenever he has to use his arm. Admits that he just uses his right arm when the pain gets too bad, so it doesn 't really restrict his function. Treatment Goals Patient/Caregiver Goals I want to get back to working without this pain. PT-OP-C Subjective Start: 10/14/19 09:39 Freq: Status: Active Protocol: Document 11/11/19 07:31 SP (Rec: 11/11/19 10:33 SP [id number]) OP-PT Subjective Patient Comments Patient Comments Pt reported can now move R ankle into DF AROM since last tx, very pleased but wants to work on strengthening and balance to improve walking on R LE. My L elbow doesn't hurt if isn't doing anything but when tries for instance opening up a jar hurts about 5/10 pain. PT-OP-F Manual Assessment Start: 10/14/19 09:39 Freq: Status: Active Protocol: Document 10/14/19 09:00 DCW (Rec: 10/14/19 10:14 [facility] [id number]) Manual Assessments Soft Tissue Assessment Soft Tissue Mobility Assessment Flexor Carpi Radialis moderate tone notable with palpation, tenderness 2/3: pain with wincing. Tenderness 3/4: Wincing and Withdraw along common flexor tendon and medial epicondyle PT-OP-K Range of Motion Start: 10/14/19 09:39 Freq: Status: Active Protocol: Document 10/14/19 09:00 DCW (Rec: 10/14/19 10:14 [facility] [id number]) Elbow/Forearm Range of Motion Elbow/Forearm Left Active Elbow/Forearm ROM WFL Yes ROM Testing Position Sitting Wrist Goniometric Range of Motion Wrist Left Wrist ROM WFL Yes ROM Limitations Comments Complaint of pain at end-range wrist flexion and radial deviation PT-OP-L Special Tests Start: 10/14/19 09:39 Freq: Status: Active Protocol: Document 10/14/19 09:00 DCW (Rec: 10/14/19 10:14 [facility] [id number]) Special Tests Elbow Special Tests Medial Epicondylitis Test Results Positive L PT-OP-M Strength Start: 10/14/19 09:39 Freq: Status: Active Protocol: Document 10/14/19 09:00 DCW (Rec: 10/14/19 10:14 [facility] [id number]) Elbow/Forearm Strength Elbow and Forearm Manual Muscle Testing Left Flexion (C6) 5 Normal Extension (C7) 5 Normal Pronation 4+ Good+ Supination 4+ Good+ Wrist Strength Wrist Manual Muscle Testing Left Flexion (C7) 4 Good Extension (C6) 5 Normal Ulnar Deviation 4+ Good+ Radial Deviation 4 Good Comments Complaint of pain with resisted flexion, radial deviation Hand Hogshead Hand/Pinch Strength Hand Dominance Hand Dominance Right Hand Strength Right Hogshead Hand (lbs) 105 Comments 3-trail average (100, 105, 110 ) Left Hogshead Hand (lbs) 76.67 Comments 3-trail average (75,75,80) PT-OP-T Assessment and Plan Start: 10/14/19 09:39 Freq: Status: Active Protocol: Document 04/19/20 15:03 DCW (Rec: 04/19/20 15:03 [facility] [id number]) Physical Therapy Assessment Assessment Summary Assessment Pt has not made any further follow-up appointments, and has now not been seen in more than five months. Pt will be discharged from PT at this time, and will require a new referral in order to return to skilled therapy. Physical Therapy Plan Discharge Physical Therapy Discharge Reasons No Longer Attending PT
== END 2020-05-04 10:00 ==
LOC: PHYS 09:00
PROVIDERS: PCP Family Medicine; Referring Provider Family Medicine; Visit Provider Family Medicine
DX: M77.02 Medial epicondylitis, left elbow (principal); M25.522 Pain in left elbow; M62.81 Muscle weakness (generalized); M77.12 Lateral epicondylitis, left elbow
CPT/HCPCS: 97110; 97140; 97161

== ENCOUNTER 2019-12-05 09:45 | Outpatient (RCR) | payer OTHER, SELFPAY ==
--- NOTE | 2019-10-20 17:09 | PT.OIE ---
Current Diagnoses Other intervertebral disc degeneration, lumbosacral region (10/20/19) Strain of muscle, fascia and tendon of lower back, initial encounter (10/20/19) Past Medical History (Last Reviewed 09/24/19 @ 11:37 by JONNY Goel) Back pain (Acute) Kidney stone (Acute) Radiculopathy of leg (Acute) Past Surgical History (Last Reviewed 09/24/19 @ 11:37 by JONNY Goel) H/O lithotripsy (Acute) Visit Care Team Role Provider Type Liliya Yuong MD Attending Provider Physician Primary Care Provider Referring Provider Specialty: [facility] Address: [address] [place] [address], [facility] Email: [email or web address] Initial Evaluation PT-OP-A Visit Information Start: 10/20/19 16:23 Freq: Status: Active Protocol: Document 10/20/19 16:24 (Rec: 10/20/19 17:09 [email or web address]) Out-Patient Physical Therapy Visit Information Visit Information Visit Type Initial Evaluation Visit Start Time 14:32 Visit Stop Time 15:15 Total Visit Minutes 43 Visit Number 03/20 Number of BUSINESS SYSTEM CONSULTANT Visits 0 Evaluation Information Evaluation Date 10/20/19 PT-OP-B Current Condition Start: 10/20/19 16:23 Freq: Status: Active Protocol: Document 10/20/19 16:24 HH (Rec: 10/20/19 17:09 [email or web address]) Current Condition History of Current Condition Onset Date mid September Current Complaints L sided back pain, R foot drop , difficulty in walking History of Current Condition Pt is a 54 yo male here for new onset of L sided back pain started from mid September. He stated he felt soreness at his low back one night after his work but he was unable to get out of bed the next morning. He was sure that it was nontraumatic and his sharp pain has gone but he is still having consistent achy pain. His pain is located in left low back wrapping around his waist without radiation down to his legs. Pain increases with bending over, twisting, getting up bend down and improves with resting in bed. 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 He also has history of kidney stone but it was resolved. Denies hematuria or indication for UTI/pyelonephritis. Lumbar MRI test that was done in March 2019 indicates patient has degenerative disc disease most prominent at L4- L5 level worse in left side and asymmetric posterior disc bulge/protrusion and facet osteoarthritis. Also, there is mild spinal stenosis present on the L4 nerve roots. Pt also has been having R foot drop since this March and his orthopedist Dr. Raphael believes he has possible nerve impingement below his R knee. Pt will have a consult with neurologist at the end of October. Prior Treatments and Tests 10/03 lumbar Xray 1. Transitional anatomy with sacralization of L5. 2. Mild degenerative disc and facet disease. lumbar MRI 03/21/19 The degenerative disc disease and facet osteoarthritis along the lumbosacral spine is relatively mild, focally is most prominent at L4-L5 with mild interval worsening of the degenerative changes at this level, left greater than right, to include increase asymmetric left greater than right posterior disc bulge/ protrusion and mild interval worsening of asymmetric left greater than right facet osteoarthritis. Significant spinal stenosis is present but mild at the left posterolateral recess, but foraminal stenosis has appreciably worsened with expected left greater than right impingement on the L4 nerve roots as a result. Treatment Goals Patient/Caregiver Goals 1. to be able to return to work and lift pallets without back discomfort 2. 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 ( up to 50lbs) Personal Factors Other Personal Factors That May Effect pt has depression and Therapy/Recovery currently taking Zoloft. PT-OP-C Subjective Start: 10/20/19 16:23 Freq: Status: Active Protocol: Document 10/20/19 16:24 (Rec: 10/20/19 17:09 [email or web address]) Patient Questionnaires Oswestry Low Back Index Oswestry Score 50 Oswestry Impairment 40 to 59% Impaired (Score 40- 59) OP-PT Pain Assessment Location L lumbar Intensity 5 Scale Used Numeric (0 - 10) Description Aching,Pinching Frequency Constant Pain Aggravating Factors ADL's,Activity,Exercise, Standing,Sitting,Walking Pain Alleviating Factors Inactivity,Lying Supine PT-OP-D Balance Start: 10/20/19 16:23 Freq: Status: Active Protocol: Document 10/20/19 16:24 HH (Rec: 10/20/19 17:09 [email or web address]) Balance Tests Single Limb Standing Single Limb- Right 25 Single Limb- Left 19 PT-OP-G Mobility & Gait Start: 10/20/19 16:23 Freq: Status: Active Protocol: Document 10/20/19 16:24 HH (Rec: 10/20/19 17:09 [email or web address]) OP Gait Assessment Comments Gait Comments pt has mild steppage gait on R side with limited active DF PT-OP-H Neuro Start: 10/20/19 16:23 Freq: Status: Active Protocol: Document 10/20/19 16:24 HH (Rec: 10/20/19 17:09 [email or web address]) Sensation Evaluation Location Details Right Foot Light Touch Impaired Comments Summary Comments tingling and numbness sensation at top of his R foot Deep Tendon Reflex & Clonus Assessment Deep Tendon Reflex Bilateral Achilles Deep Tendon Reflex 2+ Normal Bilateral Patellar Deep Tendon Reflex 2+ Normal PT-OP-K Range of Motion Start: 10/20/19 16:23 Freq: Status: Active Protocol: Document 10/20/19 16:24 HH (Rec: 10/20/19 17:09 [email or web address]) Lumbar Spine Range of Motion Lumbar Spine Active Degrees Testing Position Standing Extension 15 Comments toe touch test= 4 inch from the floor. c/o significant tightness on posterior chain, lack of hip flexion noted. Rotation= R rotation reproduce tightness sensation on L lumbar SB= WFL. PT-OP-L Special Tests Start: 10/20/19 16:23 Freq: Status: Active Protocol: Document 10/20/19 16:24 HH (Rec: 10/20/19 17:09 [email or web address]) Special Tests Lumbar Spine Special Tests Prone Instability Test Test Results +ve L Straight Leg Raise Test Results +ve L Comments increase tension on L at 70 degrees. Slump Test Results +ve L Comments reports of back pain with cervical flexion and L knee extension PT-OP-M Strength Start: 10/20/19 16:23 Freq: Status: Active Protocol: Document 10/20/19 16:24 HH (Rec: 10/20/19 17:09 [email or web address]) Hip Strength Hip Manual Muscle Testing Right Flexion (L2) 4+ Good+ Extension (S1) 4+ Good+ Abduction 4+ Good+ Adduction 4+ Good+ Left Flexion (L2) 4- Good- Extension (S1) 4 Good Abduction 4- Good- Adduction 4 Good Knee Strength Knee Manual Muscle Testing Right Flexion (S2) 3+ Fair+ Extension (L3) 4- Good- Left Flexion (S2) 4 Good Extension (L3) 4 Good Ankle/Foot Strength Ankle and Foot Manual Muscle Testing Right Dorsiflexion (L4) 3- Fair- Plantarflexion (S1) 4 Good Inversion 4- Good- Eversion (S1) 4- Good- Left Dorsiflexion (L4) 5 Normal Plantarflexion (S1) 5 Normal Inversion 5 Normal Eversion (S1) 5 Normal PT-OP-T Assessment and Plan Start: 10/20/19 16:23 Freq: Status: Active Protocol: Document 10/20/19 16:24 (Rec: 10/20/19 17:09 [email or web address]) Physical Therapy Assessment Rehab Potential Rehabilitation Potential Good Evaluation Complexity Number of Personal Factors/Comorbidities 1-2 Number of Body Systems Impaired 1-2 Clinical Presentation at Evaluation Stable Impairments Impairments Activity Tolerance,Balance, Functional Activities, Functional Mobility,Gait,Pain, Posture,ROM,Sensation,Soft Tissue Mobility,Strength, Transfers Other Concerns Barriers to Rehabilitation depression Goals return to work Impairment pt is unable to lift now Half-Way Goal (LTG) Pt will be able to return to lift heavy boxes and pallets up to 50 lbs again with safe bodymechanics LTG Duration 10 weeks pain Impairment pt has constant pain 5/10 at L low back Short Term Goal (STG) Pt will have pain no more than 3 for bending over, twisting, getting up bend down STG Duration 5 weeks Helper Electrical Goal (LTG) Pt will have pain no more than 2 for bending over and lifting in order for him to start working again. LTG Duration 10 weeks neurological signs Impairment +ve for slump and SLR test Half-Way Goal (LTG) pt will be symptoms free for both slump and SLR special test to decrease neural tension for bend over activities LTG Duration 8 weeks Oswestry Impairment pt scores 50 on Oswestry Short Term Goal (STG) pt will score 39 or lower on Oswestry questionnaire to improve his quality of life STG Duration 5 weeks Half-Way Goal (LTG) pt will score 19 or lower on Oswestry questionnaire to improve his quality of life LTG Duration 10 weeks Assessment Summary Assessment This is a 54 year male who presents to PT with nontraumatic left low lumbar discomfort since mid september after lifting from work. pt's MRI and X -rays both show mild degenerative disc, facet disease and posterior disc bulge/protrusion at L4 L5 region. Upon assessment, pt shows +ve signs with slump test and SLR, along with very poor hamstrings/ posterior chain mobility. There's no significant ROM/ strength loss on LLE but noticeable strength loss at R foot (DF, great toe extension ) and R knee flexion. Pt also amb with a mild steppage gait d/t lack of DF. However, his orthopedist believes this is a possible nerve entrapment issue (below) since EMG shows negative findings on R low back/ hip who is going to have a neuro consult at the end of October. Pt will benefit from skilled therapy to improve his lumbar spine and posterior chain mobility, nerve sensitivity, trunk stability and overall LEs strength in order for him to return to his physical demanding job. Physical Therapy Plan Frequency and Duration Frequency of Treatment 2x/Week Duration of Treatment 10 weeks Plan of Care Start Date 10/20/19 Plan of Care End Date 01/03/20 Therapeutic Interventions Therapeutic Interventions Balance Training,Gait Training ,Home Exercise Program,Joint Mobilizations,Manual Therapy, Neuromuscular Re-education, Patient/Caregiver Education, Self-Care/Home Management,Soft Tissue Mobilization,Taping, Therapeutic Activities, Therapeutic Exercises Modalities Cold Pack/Ice Massage,Electric Stimulation,Hot Packs, Infrared Therapy,Traction- Mechanical,Ultrasound Next Visit Focus/Plan Next Note Type Treatment Note Next Visit Plan check DF ROM manual therapy on L proximal glute, L SIJ release distraction if needed pelvic tilt, pelvic clock, cat camel SLR stretch, bridging R hamstring and r DF
--- NOTE | 2019-10-20 17:09 | PT.OPPOC ---
Physical, Occupational & Speech Therapy At [facility] Current Diagnoses Other intervertebral disc degeneration, lumbosacral region (10/20/19) Strain of muscle, fascia and tendon of lower back, initial encounter (10/20/19) Visit Care Team Role Provider Type Liliya Young MD Attending Provider Physician Primary Care Provider Referring Provider Specialty: Family Practice Address: [address] [place] [address], [facility] [place], [facility] Email: [email or web address] Plan Of Care PT-OP-T Assessment and Plan Start: 10/20/19 16:23 Freq: Status: Active Protocol: Document 10/20/19 16:24 (Rec: 10/20/19 17:09 [email or web address]) Physical Therapy Assessment Rehab Potential Rehabilitation Potential Good Evaluation Complexity Number of Personal Factors/Comorbidities 1-2 Number of Body Systems Impaired 1-2 Clinical Presentation at Evaluation Stable Impairments Impairments Activity Tolerance,Balance, Functional Activities, Functional Mobility,Gait,Pain, Posture,ROM,Sensation,Soft Tissue Mobility,Strength, Transfers Other Concerns Barriers to Rehabilitation depression Goals return to work Impairment pt is unable to lift now Shelter Goal (LTG) Pt will be able to return to lift heavy boxes and 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 LTG Duration 10 weeks neurological signs Impairment +ve for slump and SLR test Greens Cutter Goal (LTG) pt will be symptoms free for both slump and SLR special test to decrease neural tension for bend over activities LTG Duration 8 weeks Oswestry Impairment pt scores 50 on Oswestry Short Term Goal (STG) pt will score 39 or lower on Oswestry questionnaire to improve his quality of life STG Duration 5 weeks Shelter Goal (LTG) pt will score 19 or lower on Oswestry questionnaire to improve his quality of life LTG Duration 10 weeks Assessment Summary Assessment This is a 54 year male who presents to PT with nontraumatic left low lumbar discomfort since mid september after lifting from work. pt's MRI and X -rays both show mild degenerative disc, facet disease and posterior disc bulge/protrusion at L4 L5 region. Upon assessment, pt shows +ve signs with slump test and SLR, along with very poor hamstrings/ posterior chain mobility. There's no significant ROM/ strength loss on LLE but noticeable strength loss at R foot (DF, great toe extension ) and R knee flexion. Pt also amb with a mild steppage gait d/t lack of DF. However, his orthopedist believes this is a possible nerve entrapment issue (below) since EMG shows negative findings on R low back/ hip who is going to have a neuro consult at the end of October. Pt will benefit from skilled therapy to improve his lumbar spine and posterior chain mobility, nerve sensitivity, trunk stability and overall LEs strength in order for him to return to his physical demanding job. Physical Therapy Plan Frequency and Duration Frequency of Treatment 2x/Week Duration of Treatment 10 weeks Plan of Care Start Date 10/20/19 Plan of Care End Date 01/03/20 Therapeutic Interventions Therapeutic Interventions Balance Training,Gait Training ,Home Exercise Program,Joint Mobilizations,Manual Therapy, Neuromuscular Re-education, Patient/Caregiver Education, Self-Care/Home Management,Soft Tissue Mobilization,Taping, Therapeutic Activities, Therapeutic Exercises Modalities Cold Pack/Ice Massage,Electric Stimulation,Hot Packs, Infrared Therapy,Traction- Mechanical,Ultrasound Next Visit Focus/Plan Next Note Type Treatment Note Next Visit Plan check DF ROM manual therapy on L proximal glute, L SIJ release distraction if needed pelvic tilt, pelvic clock, cat camel SLR stretch, bridging R hamstring and r DF Plan of Care Dates Plan of Care Start Date 10/20/19 Plan of Care End Date 01/03/20 Electronically Signed by: Aj Mattson, PT 10/20/19 2013 Please Sign and Return: I have reviewed this Plan of Care and certify that the skilled therapy services above are required to meet the patient?s needs. Physician Signature Date Printed Name and Credentials Clinical Instructor Signature Printed Name and Credentials
--- NOTE | 2019-10-24 12:37 | PT.OTN ---
Current Diagnoses Other intervertebral disc degeneration, lumbosacral region (10/24/19) Strain of muscle, fascia and tendon of lower back, initial encounter (10/24/19) Physical Therapy Treatment Note PT-OP-A Visit Information Start: 10/20/19 16:23 Freq: Status: Active Protocol: Document 10/24/19 08:57 LRN (Rec: 10/24/19 09:56 LRN [id number]) Out-Patient Physical Therapy Visit Information Visit Information Visit Type Treatment Note Visit Start Time 08:57 Visit Stop Time 09:49 Total Visit Minutes 52 Visit Number 04/20 Evaluation Information Evaluation Date 10/20/19 PT-OP-B Current Condition Start: 10/20/19 16:23 Freq: Status: Active Protocol: Document 10/20/19 16:24 HH (Rec: 10/20/19 17:09 HH [email or web address]) Current Condition History of Current Condition Onset Date september Current Complaints L sided back pain, R foot drop , difficulty in walking History of Current Condition Pt is a 54 yo male here for new onset of L sided back pain started from mid September. He stated he felt soreness at his low back one night after his work but he was unable to get out of bed the next morning. He was sure that it was nontraumatic and his sharp pain has gone but he is still having consistent achy pain. His pain is located in left low back wrapping around his waist without radiation down to his legs. Pain increases with bending over, twisting, getting up bend down and improves with resting in bed. 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 He also has history of kidney stone but it was resolved. Denies hematuria or indication for UTI/pyelonephritis. Lumbar MRI test that was done in March 2019 indicates patient has degenerative disc disease most prominent at L4- L5 level worse in left side and asymmetric posterior disc bulge/protrusion and facet osteoarthritis. Also, there is mild spinal stenosis present on the L4 nerve roots. Pt also has been having R foot drop since this March and his orthopedist Dr. Raphael believes he has possible nerve impingement below his R knee. Pt will have a consult with neurologist at the end of October. Prior Treatments and Tests 10/03 lumbar Xray 1. Transitional anatomy with sacralization of L5. 2. Mild degenerative disc and facet disease. lumbar MRI 03/21/19 The degenerative disc disease and facet osteoarthritis along the lumbosacral spine is relatively mild, focally is most prominent at L4-L5 with mild interval worsening of the degenerative changes at this level, left greater than right, to include increase asymmetric left greater than right posterior disc bulge/ protrusion and mild interval worsening of asymmetric left greater than right facet osteoarthritis. Significant spinal stenosis is present but mild at the left posterolateral recess, but foraminal stenosis has appreciably worsened with expected left greater than right impingement on the L4 nerve roots as a result. Treatment Goals Patient/Caregiver Goals 1. to be able to return to work and lift pallets without back discomfort 2. 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 ( up to 50lbs) Personal Factors Other Personal Factors That May Effect pt has depression and Therapy/Recovery currently taking Zoloft. PT-OP-C Subjective Start: 10/20/19 16:23 Freq: Status: Active Protocol: Document 10/24/19 08:57 LRN (Rec: 10/24/19 09:56 LRN [id number]) OP-PT Subjective Patient Comments Patient Comments Sore this morning, didn't sleep well last night due to the heat. Pain is 5/10. Seeing neurologist in 7 days. No change pain after therapy , feels looser. PT-OP-D Balance Start: 10/20/19 16:23 Freq: Status: Active Protocol: Document 10/20/19 16:24 HH (Rec: 10/20/19 17:09 HH [email or web address]) Balance Tests Single Limb Standing Single Limb- Right 25 Single Limb- Left 19 PT-OP-G Mobility & Gait Start: 10/20/19 16:23 Freq: Status: Active Protocol: Document 10/20/19 16:24 HH (Rec: 10/20/19 17:09 HH [email or web address]) OP Gait Assessment Comments Gait Comments pt has mild steppage gait on R side with limited active DF PT-OP-H Neuro Start: 10/20/19 16:23 Freq: Status: Active Protocol: Document 10/20/19 16:24 HH (Rec: 10/20/19 17:09 [email or web address]) Sensation Evaluation Location Details Right Foot Light Touch Impaired Comments Summary Comments tingling and numbness sensation at top of his R foot Deep Tendon Reflex & Clonus Assessment Deep Tendon Reflex Bilateral Achilles Deep Tendon Reflex 2+ Normal Bilateral Patellar Deep Tendon Reflex 2+ Normal PT-OP-K Range of Motion Start: 10/20/19 16:23 Freq: Status: Active Protocol: Document 10/24/19 08:57 LRN (Rec: 10/24/19 09:56 LRN [id number]) Ankle and Foot Goniometric Range of Motion Ankle and Foot Left Active Ankle/Foot ROM WFL No Plantarflexion 42 Right Active Ankle/Foot ROM WFL Yes Plantarflexion 65 Ankle and Foot ROM Limitations ROM Limitations Muscle Weakness Comments R ankle: DF lacks 42 degs's. L ankle: DF lacks 7 deg's. PT-OP-L Special Tests Start: 10/20/19 16:23 Freq: Status: Active Protocol: Document 10/20/19 16:24 HH (Rec: 10/20/19 17:09 [email or web address]) Special Tests Lumbar Spine Special Tests Prone Instability Test Test Results +ve L Straight Leg Raise Test Results +ve L Comments increase tension on L at 70 degrees. Slump Test Results +ve L Comments reports of back pain with cervical flexion and L knee extension PT-OP-M Strength Start: 10/20/19 16:23 Freq: Status: Active Protocol: Document 10/20/19 16:24 HH (Rec: 10/20/19 17:09 [email or web address]) Hip Strength Hip Manual Muscle Testing Right Flexion (L2) 4+ Good+ Extension (S1) 4+ Good+ Abduction 4+ Good+ Adduction 4+ Good+ Left Flexion (L2) 4- Good- Extension (S1) 4 Good Abduction 4- Good- Adduction 4 Good Knee Strength Knee Manual Muscle Testing Right Flexion (S2) 3+ Fair+ Extension (L3) 4- Good- Left Flexion (S2) 4 Good Extension (L3) 4 Good Ankle/Foot Strength Ankle and Foot Manual Muscle Testing Right Dorsiflexion (L4) 3- Fair- Plantarflexion (S1) 4 Good Inversion 4- Good- Eversion (S1) 4- Good- Left Dorsiflexion (L4) 5 Normal Plantarflexion (S1) 5 Normal Inversion 5 Normal Eversion (S1) 5 Normal PT-OP-Q Treatments Start: 10/20/19 16:23 Freq: Status: Active Protocol: Document 10/24/19 08:57 LRN (Rec: 10/24/19 09:56 LRN [id number]) Therapeutic Exercises Supine Exercises Pirifromis stretch Supine Exercise Name Piriformis stretch (R leg crossed over L knee) Reps/Minutes 3' Comments Extra time taken for proper positioning Lateral Hip stretch Supine Exercise Name Lateral Hip stretch Side right Reps/Minutes 3' Comments Extra time for learning limits and for proper positioning Pelvic clock Supine Exercise Name Pelvic Clock Comments Moving to 1-5 0Clock and 7-11 OClock causes L , Moving to 12 O'Clock-tight Bridges Supine Exercise Name Bridges Reps/Minutes 15x Hamstring/LE neural stretch Supine Exercise Name Hamstring/LE neural stretch Side bilateral Reps/Minutes Hold 10, f/b active DF x 10 - 3 sets Comments Manual ankle DF given to L LE. Other Exercises Rock Backs Other Exercise Name Rock Back, sitting on heels Reps/Minutes 2' Comments Extra time for instructions Cat/Camel Other Exercise Name Cat/Camel stretch Reps/Minutes 3' Comments Extra time for instructions Manual Therapy Treatment Soft Tissue Mobilization Upper Gluteals Body Location Upper Gluteal Mobilization Type Strumming Body Position Prone L sacral border Body Location L Sacral Border Mobilization Type Strumming,Other Body Position Prone Comments Circles along sacral border Joint Mobilizations SIJ Joint Corrected Sacral L rotation. Grade II Body Position Prone Comments [employer] Self-Care/Home Management Treatment Education Patient Education Home Exercise Program Activities Self-Care/Home Management Activities Issued & reviewed HEP: Cat/ Camel & straight back child's pose stretch, & R hip stretches: Lateral hip hip and Piriformis. PT-OP-T Assessment and Plan Start: 10/20/19 16:23 Freq: Status: Active Protocol: Document 10/24/19 08:57 LRN (Rec: 10/24/19 09:56 LRN [id number]) Physical Therapy Assessment Goals return to work Impairment pt is unable to lift now Tie Knitter Helper Goal (LTG) Pt will be able to return to lift heavy boxes and pallets up to 50 lbs again with safe bodymechanics LTG Duration 10 weeks pain Impairment pt has constant pain 5/10 at L low back Short Term Goal (STG) Pt will have pain no more than 3 for bending over, twisting, getting up bend down STG Duration 5 weeks Tie Knitter Helper Goal (LTG) Pt will have pain no more than 2 for bending over and lifting in order for him to start working again. LTG Duration 10 weeks neurological signs Impairment +ve for slump and SLR test Tie Knitter Helper Goal (LTG) pt will be symptoms free for both slump and SLR special test to decrease neural tension for bend over activities LTG Duration 8 weeks Oswestry Impairment pt scores 50 on Oswestry Short Term Goal (STG) pt will score 39 or lower on Oswestry questionnaire to improve his quality of life STG Duration 5 weeks Intermediate Goal (LTG) pt will score 19 or lower on Oswestry questionnaire to improve his quality of life LTG Duration 10 weeks Three Impairment FCR has moderate tone with 2/4 tenderness to palpation Intermediate Goal (LTG) Pt to exhibit ECR tone WNL and no tenderness LTG Duration 12/14/19 Two Impairment Pt has a left contracts analyst strength 38 pounds less than his right contracts analyst Intermediate Goal (LTG) Pt to increase left contracts analyst strength to 95 pounds to demonstrate increased ability to perform job activities without pain LTG Duration 12/14/19 One Impairment Pt does not have an appropriate home exercise program Short Term Goal (STG) Pt to be independent and compliant with an appropriate HEP STG Duration 11/14/19 Assessment Summary Assessment Sacrum in L rotation, pain along L sacral border, possibly due to neural tension . R Piriformis is tight and R drop foot. R AFO would be appropriate. Pt did have discomfort with ex's so he had to be educated to not work in pain. Physical Therapy Plan Frequency and Duration Frequency of Treatment 2x/Week Duration of Treatment 8 weeks Plan of Care Start Date 10/20/19 Plan of Care End Date 01/03/20 Next Visit Focus/Plan Next Note Type Treatment Note Next Visit Plan manual therapy on L proximal glute, ? L SIJ release distraction if needed Review: pelvic tilt, pelvic clock, cat camel Reviewed: SLR stretch, bridging, R hamstring and Add R DF
--- NOTE | 2019-10-25 16:15 | PT.OTN ---
Current Diagnoses Other intervertebral disc degeneration, lumbosacral region (10/25/19) Strain of muscle, fascia and tendon of lower back, initial encounter (10/25/19) Physical Therapy Treatment Note PT-OP-A Visit Information Start: 10/20/19 16:23 Freq: Status: Active Protocol: Document 10/25/19 15:56 HH (Rec: 10/25/19 16:14 [id number]) Out-Patient Physical Therapy Visit Information Visit Information Visit Type Treatment Note Visit Start Time 15:16 Visit Stop Time 16:00 Total Visit Minutes 44 Visit Number 3/ PT-OP-B Current Condition Start: 10/20/19 16:23 Freq: Status: Active Protocol: Document 10/20/19 16:24 HH (Rec: 10/20/19 17:09 [email or web address]) Current Condition History of Current Condition Onset Date mid September Current Complaints L sided back pain, R foot drop , difficulty in walking History of Current Condition Pt is a 54 yo male here for new onset of L sided back pain started from mid September. He stated he felt soreness at his low back one night after his work but he was unable to get out of bed the next morning. He was sure that it was nontraumatic and his sharp pain has gone but he is still having consistent achy pain. His pain is located in left low back wrapping around his waist without radiation down to his legs. Pain increases with bending over, twisting, getting up bend down and improves with resting in bed. 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 He also has history of kidney stone but it was resolved. Denies hematuria or indication for UTI/pyelonephritis. Lumbar MRI test that was done in March 2019 indicates patient has degenerative disc disease most prominent at L4- L5 level worse in left side and asymmetric posterior disc bulge/protrusion and facet osteoarthritis. Also, there is mild spinal stenosis present on the L4 nerve roots. Pt also has been having R foot drop since this March and his orthopedist Dr. Raphael believes he has possible nerve impingement below his R knee. Pt will have a consult with neurologist at the end of October. Prior Treatments and Tests 10/03 lumbar Xray 1. Transitional anatomy with sacralization of L5. 2. Mild degenerative disc and facet disease. lumbar MRI 03/21/19 The degenerative disc disease and facet osteoarthritis along the lumbosacral spine is relatively mild, focally is most prominent at L4-L5 with mild interval worsening of the degenerative changes at this level, left greater than right, to include increase asymmetric left greater than right posterior disc bulge/ protrusion and mild interval worsening of asymmetric left greater than right facet osteoarthritis. Significant spinal stenosis is present but mild at the left posterolateral recess, but foraminal stenosis has appreciably worsened with expected left greater than right impingement on the L4 nerve roots as a result. Treatment Goals Patient/Caregiver Goals 1. to be able to return to work and lift pallets without back discomfort 2. 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 ( up to 50lbs) Personal Factors Other Personal Factors That May Effect pt has depression and Therapy/Recovery currently taking Zoloft. PT-OP-C Subjective Start: 10/20/19 16:23 Freq: Status: Active Protocol: Document 10/25/19 15:56 HH (Rec: 10/25/19 16:14 HH [id number]) OP-PT Subjective Patient Comments Patient Comments I got sore from yesterday but im doing okay. PT-OP-D Balance Start: 10/20/19 16:23 Freq: Status: Active Protocol: Document 10/20/19 16:24 HH (Rec: 10/20/19 17:09 HH [email or web address]) Balance Tests Single Limb Standing Single Limb- Right 25 Single Limb- Left 19 PT-OP-G Mobility & Gait Start: 10/20/19 16:23 Freq: Status: Active Protocol: Document 10/20/19 16:24 HH (Rec: 10/20/19 17:09 HH [email or web address]) OP Gait Assessment Comments Gait Comments pt has mild steppage gait on R side with limited active DF PT-OP-H Neuro Start: 10/20/19 16:23 Freq: Status: Active Protocol: Document 10/20/19 16:24 HH (Rec: 10/20/19 17:09 HH [email or web address]) Sensation Evaluation Location Details Right Foot Light Touch Impaired Comments Summary Comments tingling and numbness sensation at top of his R foot Deep Tendon Reflex & Clonus Assessment Deep Tendon Reflex Bilateral Achilles Deep Tendon Reflex 2+ Normal Bilateral Patellar Deep Tendon Reflex 2+ Normal PT-OP-K Range of Motion Start: 10/20/19 16:23 Freq: Status: Active Protocol: Document 10/24/19 08:57 LRN (Rec: 10/24/19 09:56 LRN [id number]) Ankle and Foot Goniometric Range of Motion Ankle and Foot Left Active Ankle/Foot ROM WFL No Plantarflexion 42 Right Active Ankle/Foot ROM WFL Yes Plantarflexion 65 Ankle and Foot ROM Limitations ROM Limitations Muscle Weakness Comments R ankle: DF lacks 42 degs's. L ankle: DF lacks 7 deg's. PT-OP-L Special Tests Start: 10/20/19 16:23 Freq: Status: Active Protocol: Document 10/20/19 16:24 HH (Rec: 10/20/19 17:09 HH [email or web address]) Special Tests Lumbar Spine Special Tests Prone Instability Test Test Results +ve L Straight Leg Raise Test Results +ve L Comments increase tension on L at 70 degrees. Slump Test Results +ve L Comments reports of back pain with cervical flexion and L knee extension PT-OP-M Strength Start: 10/20/19 16:23 Freq: Status: Active Protocol: Document 10/20/19 16:24 HH (Rec: 10/20/19 17:09 HH [email or web address]) Hip Strength Hip Manual Muscle Testing Right Flexion (L2) 4+ Good+ Extension (S1) 4+ Good+ Abduction 4+ Good+ Adduction 4+ Good+ Left Flexion (L2) 4- Good- Extension (S1) 4 Good Abduction 4- Good- Adduction 4 Good Knee Strength Knee Manual Muscle Testing Right Flexion (S2) 3+ Fair+ Extension (L3) 4- Good- Left Flexion (S2) 4 Good Extension (L3) 4 Good Ankle/Foot Strength Ankle and Foot Manual Muscle Testing Right Dorsiflexion (L4) 3- Fair- Plantarflexion (S1) 4 Good Inversion 4- Good- Eversion (S1) 4- Good- Left Dorsiflexion (L4) 5 Normal Plantarflexion (S1) 5 Normal Inversion 5 Normal Eversion (S1) 5 Normal PT-OP-Q Treatments Start: 10/20/19 16:23 Freq: Status: Active Protocol: Document 10/25/19 15:56 HH (Rec: 10/25/19 16:14 [id number]) Cardio Equipment Bicycle (Upright) Duration (Minutes) 6 Resistance 5 Therapeutic Exercises Supine Exercises Pirifromis stretch Supine Exercise Name Piriformis stretch (R leg crossed over L knee) Reps/Minutes 3' Comments Extra time taken for proper positioning Lateral Hip stretch Supine Exercise Name Lateral Hip stretch Side right Reps/Minutes 3' Comments Extra time for learning limits and for proper positioning Hamstring/LE neural stretch Supine Exercise Name Hamstring/LE neural stretch Side bilateral Reps/Minutes Hold 10, f/b active DF x 10 - 3 sets Comments Manual ankle DF given to L LE. Prone Exercises child pose Prone Exercise Name PT guided movement, cues for PPT Side bilateral Reps/Minutes 8 Comments pulling sensation with lumbar flexion cat camel Prone Exercise Name PT guided movement, cues for PPT Side bilateral Reps/Minutes 8 Comments pulling sensation with lumbar flexion Manual Therapy Treatment Joint Mobilizations hip distraction Grade III Body Position Supine Reps/Duration 2 mins Comments pt reports he feels good with decompression sensation. SIJ Joint SIJ thread the needle position Grade II Body Position Sidelying Reps/Duration 4 mins PT-OP-T Assessment and Plan Start: 10/20/19 16:23 Freq: Status: Active Protocol: Document 10/25/19 15:56 (Rec: 10/25/19 16:14 [id number]) Physical Therapy Assessment Goals return to work Impairment pt is unable to lift now Skilled Nursing Goal (LTG) Pt will be able to return to lift heavy boxes and pallets up to 50 lbs again with safe bodymechanics LTG Duration 10 weeks pain Impairment pt has constant pain 5/10 at L low back Short Term Goal (STG) Pt will have pain no more than 3 for bending over, twisting, getting up bend down STG Duration 5 weeks Skilled Nursing Goal (LTG) Pt will have pain no more than 2 for bending over and lifting in order for him to start working again. LTG Duration 10 weeks neurological signs Impairment +ve for slump and SLR test Plant Puller Goal (LTG) pt will be symptoms free for both slump and SLR special test to decrease neural tension for bend over activities LTG Duration 8 weeks Oswestry Impairment pt scores 50 on Oswestry Short Term Goal (STG) pt will score 39 or lower on Oswestry questionnaire to improve his quality of life STG Duration 5 weeks Skilled Nursing Goal (LTG) pt will score 19 or lower on Oswestry questionnaire to improve his quality of life LTG Duration 10 weeks Assessment Summary Assessment Pt came in with pain with slump test on L. Tx focused on increasing hamstring mobility , lumbar flexion, nerve glide who was able to touch his toes with minimal discomfort for slump test at the end of session. Physical Therapy Plan Next Visit Focus/Plan Next Note Type Treatment Note Next Visit Plan manual therapy on L proximal glute, ? L SIJ release distraction if needed Review: pelvic tilt, pelvic clock, cat camel Reviewed: SLR stretch, bridging, R hamstring and Add R DF
--- NOTE | 2019-11-03 12:11 | PT.OTN ---
Current Diagnoses Other intervertebral disc degeneration, lumbosacral region (11/03/19) Strain of muscle, fascia and tendon of lower back, initial encounter (11/03/19) Physical Therapy Treatment Note PT-OP-A Visit Information Start: 10/20/19 16:23 Freq: Status: Active Protocol: Document 11/03/19 12:01 (Rec: 11/03/19 12:09 [id number]) Out-Patient Physical Therapy Visit Information Visit Information Visit Type Treatment Note Visit Start Time 10:31 Visit Stop Time 11:14 Total Visit Minutes 43 Visit Number 4 PT-OP-B Current Condition Start: 10/20/19 16:23 Freq: Status: Active Protocol: Document 10/20/19 16:24 HH (Rec: 10/20/19 17:09 [email or web address]) Current Condition History of Current Condition Onset Date mid September Current Complaints L sided back pain, R foot drop , difficulty in walking History of Current Condition Pt is a 54 yo male here for new onset of L sided back pain started from mid September. He stated he felt soreness at his low back one night after his work but he was unable to get out of bed the next morning. He was sure that it was nontraumatic and his sharp pain has gone but he is still having consistent achy pain. His pain is located in left low back wrapping around his waist without radiation down to his legs. Pain increases with bending over, twisting, getting up bend down and improves with resting in bed. 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 He also has history of kidney stone but it was resolved. Denies hematuria or indication for UTI/pyelonephritis. Lumbar MRI test that was done in March 2019 indicates patient has degenerative disc disease most prominent at L4- L5 level worse in left side and asymmetric posterior disc bulge/protrusion and facet osteoarthritis. Also, there is mild spinal stenosis present on the L4 nerve roots. Pt also has been having R foot drop since this March and his orthopedist Dr. Raphael believes he has possible nerve impingement below his R knee. Pt will have a consult with neurologist at the end of October. Prior Treatments and Tests 10/03 lumbar Xray 1. Transitional anatomy with sacralization of L5. 2. Mild degenerative disc and facet disease. lumbar MRI 03/21/19 The degenerative disc disease and facet osteoarthritis along the lumbosacral spine is relatively mild, focally is most prominent at L4-L5 with mild interval worsening of the degenerative changes at this level, left greater than right, to include increase asymmetric left greater than right posterior disc bulge/ protrusion and mild interval worsening of asymmetric left greater than right facet osteoarthritis. Significant spinal stenosis is present but mild at the left posterolateral recess, but foraminal stenosis has appreciably worsened with expected left greater than right impingement on the L4 nerve roots as a result. Treatment Goals Patient/Caregiver Goals 1. to be able to return to work and lift pallets without back discomfort 2. 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 ( up to 50lbs) Personal Factors Other Personal Factors That May Effect pt has depression and Therapy/Recovery currently taking Zoloft. PT-OP-C Subjective Start: 10/20/19 16:23 Freq: Status: Active Protocol: Document 11/03/19 12:01 (Rec: 11/03/19 12:09 [id number]) OP-PT Subjective Patient Comments Patient Comments Im doing okay and sitting for > 30 mins tends to bother me. I noticed that my back is moving better. I went to see neurologist last week and they stated that they dont understand why im there but they did refer me to electorate officer to get a custom brace/ orthotics Patient Reported Progress Same PT-OP-D Balance Start: 10/20/19 16:23 Freq: Status: Active Protocol: Document 10/20/19 16:24 (Rec: 10/20/19 17:09 [email or web address]) Balance Tests Single Limb Standing Single Limb- Right 25 Single Limb- Left 19 PT-OP-G Mobility & Gait Start: 10/20/19 16:23 Freq: Status: Active Protocol: Document 10/20/19 16:24 HH (Rec: 10/20/19 17:09 [email or web address]) OP Gait Assessment Comments Gait Comments pt has mild steppage gait on R side with limited active DF PT-OP-H Neuro Start: 10/20/19 16:23 Freq: Status: Active Protocol: Document 10/20/19 16:24 (Rec: 10/20/19 17:09 [email or web address]) Sensation Evaluation Location Details Right Foot Light Touch Impaired Comments Summary Comments tingling and numbness sensation at top of his R foot Deep Tendon Reflex & Clonus Assessment Deep Tendon Reflex Bilateral Achilles Deep Tendon Reflex 2+ Normal Bilateral Patellar Deep Tendon Reflex 2+ Normal PT-OP-K Range of Motion Start: 10/20/19 16:23 Freq: Status: Active Protocol: Document 10/24/19 08:57 LRN (Rec: 10/24/19 09:56 LRN [id number]) Ankle and Foot Goniometric Range of Motion Ankle and Foot Left Active Ankle/Foot ROM WFL No Plantarflexion 42 Right Active Ankle/Foot ROM WFL Yes Plantarflexion 65 Ankle and Foot ROM Limitations ROM Limitations Muscle Weakness Comments R ankle: DF lacks 42 degs's. L ankle: DF lacks 7 deg's. PT-OP-L Special Tests Start: 10/20/19 16:23 Freq: Status: Active Protocol: Document 10/20/19 16:24 (Rec: 10/20/19 17:09 [email or web address]) Special Tests Lumbar Spine Special Tests Prone Instability Test Test Results +ve L Straight Leg Raise Test Results +ve L Comments increase tension on L at 70 degrees. Slump Test Results +ve L Comments reports of back pain with cervical flexion and L knee extension PT-OP-M Strength Start: 10/20/19 16:23 Freq: Status: Active Protocol: Document 10/20/19 16:24 HH (Rec: 10/20/19 17:09 [email or web address]) Hip Strength Hip Manual Muscle Testing Right Flexion (L2) 4+ Good+ Extension (S1) 4+ Good+ Abduction 4+ Good+ Adduction 4+ Good+ Left Flexion (L2) 4- Good- Extension (S1) 4 Good Abduction 4- Good- Adduction 4 Good Knee Strength Knee Manual Muscle Testing Right Flexion (S2) 3+ Fair+ Extension (L3) 4- Good- Left Flexion (S2) 4 Good Extension (L3) 4 Good Ankle/Foot Strength Ankle and Foot Manual Muscle Testing Right Dorsiflexion (L4) 3- Fair- Plantarflexion (S1) 4 Good Inversion 4- Good- Eversion (S1) 4- Good- Left Dorsiflexion (L4) 5 Normal Plantarflexion (S1) 5 Normal Inversion 5 Normal Eversion (S1) 5 Normal PT-OP-Q Treatments Start: 10/20/19 16:23 Freq: Status: Active Protocol: Document 11/03/19 12:01 (Rec: 11/03/19 12:09 [id number]) Cardio Equipment Bicycle (Upright) Duration (Minutes) 6 Resistance 5 Therapeutic Exercises Supine Exercises ab curl Supine Exercise Name with red therapy ball Reps/Minutes 3 mins Comments cues on TA engagement pt reports stretch at lumbar spine. LTR Supine Exercise Name with red therapy ball Reps/Minutes 4 mins Comments cues on slow control with using abdominals. Pirifromis stretch Supine Exercise Name Piriformis stretch (R leg crossed over L knee) Reps/Minutes 3' Comments Extra time taken for proper positioning Hamstring/LE neural stretch Supine Exercise Name Hamstring/LE neural stretch Side bilateral Reps/Minutes Hold 10, f/b active DF x 10 - 3 sets Comments Manual ankle DF given to L LE. Prone Exercises child pose Prone Exercise Name PT guided movement, cues for PPT Side bilateral Reps/Minutes 8 Comments pulling sensation with lumbar flexion cat camel Prone Exercise Name PT guided movement, cues for PPT Side bilateral Reps/Minutes 8 Comments pulling sensation with lumbar flexion Manual Therapy Treatment Soft Tissue Mobilization Upper Gluteals Body Location Upper Gluteal Mobilization Type Strumming Body Position Prone Joint Mobilizations hip distraction Grade III Body Position Supine Reps/Duration 2 mins Comments pt reports he feels good with decompression sensation. PT-OP-R Modalities Start: 10/20/19 16:23 Freq: Status: Active Protocol: Document 11/03/19 12:10 (Rec: 11/03/19 12:11 [id number]) Electric Stimulation Electric Stimulation NMES (thai) Body Location R ant tib Duration (Minutes) 8 Intensity 50-55 Contraction Type Normal Cycle 10/10 Ramp 2.0 Patient Position Sitting Comments instructed pt to perform active DF during ON time. PT-OP-T Assessment and Plan Start: 10/20/19 16:23 Freq: Status: Active Protocol: Document 11/03/19 12:01 (Rec: 11/03/19 12:09 [id number]) Physical Therapy Assessment Goals return to work Impairment pt is unable to lift now [employer] Goal (LTG) Pt will be able to return to lift heavy boxes and pallets up to 50 lbs again with safe bodymechanics LTG Duration 10 weeks pain Impairment pt has constant pain 5/10 at L low back Short Term Goal (STG) Pt will have pain no more than 3 for bending over, twisting, getting up bend down STG Duration 5 weeks [facility] Goal (LTG) Pt will have pain no more than 2 for bending over and lifting in order for him to start working again. LTG Duration 10 weeks neurological signs Impairment +ve for slump and SLR test [facility] Goal (LTG) pt will be symptoms free for both slump and SLR special test to decrease neural tension for bend over activities LTG Duration 8 weeks Oswestry Impairment pt scores 50 on Oswestry Short Term Goal (STG) pt will score 39 or lower on Oswestry questionnaire to improve his quality of life STG Duration 5 weeks [facility] Goal (LTG) pt will score 19 or lower on Oswestry questionnaire to improve his quality of life LTG Duration 10 weeks Assessment Summary Assessment Added NMES with thai setting 10/10 cycle with 50 mA . Pt was able to [id number] % of R ankle DF. Physical Therapy Plan Next Visit Focus/Plan Next Note Type Treatment Note Next Visit Plan NMES on R ankle DF manual therapy on L proximal glute, ? L SIJ release distraction if needed Review: pelvic tilt, pelvic clock, cat camel Reviewed: SLR stretch, bridging, R hamstring and Add R DF
--- NOTE | 2019-11-08 10:30 | PT.OTN ---
Current Diagnoses Other intervertebral disc degeneration, lumbosacral region (11/08/19) Strain of muscle, fascia and tendon of lower back, initial encounter (11/08/19) Physical Therapy Treatment Note PT-OP-A Visit Information Start: 10/20/19 16:23 Freq: Status: Active Protocol: Document 11/08/19 09:46 SP (Rec: 11/08/19 10:35 SP [id number]) Out-Patient Physical Therapy Visit Information Visit Information Visit Type Treatment Note Visit Start Time 09:46 Visit Stop Time 10:30 Total Visit Minutes 44 Visit Number / Number of HOSPITAL NURSE Visits 1 PT-OP-B Current Condition Start: 10/20/19 16:23 Freq: Status: Active Protocol: Document 10/20/19 16:24 HH (Rec: 10/20/19 17:09 HH [email or web address]) Current Condition History of Current Condition Onset Date mid September Current Complaints L sided back pain, R foot drop , difficulty in walking History of Current Condition Pt is a 54 yo male here for new onset of L sided back pain started from mid September. He stated he felt soreness at his low back one night after his work but he was unable to get out of bed the next morning. He was sure that it was nontraumatic and his sharp pain has gone but he is still having consistent achy pain. His pain is located in left low back wrapping around his waist without radiation down to his legs. Pain increases with bending over, twisting, getting up bend down and improves with resting in bed. 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 He also has history of kidney stone but it was resolved. Denies hematuria or indication for UTI/pyelonephritis. Lumbar MRI test that was done in March 2019 indicates patient has degenerative disc disease most prominent at L4- L5 level worse in left side and asymmetric posterior disc bulge/protrusion and facet osteoarthritis. Also, there is mild spinal stenosis present on the L4 nerve roots. Pt also has been having R foot drop since this March and his orthopedist Dr. Raphael believes he has possible nerve impingement below his R knee. Pt will have a consult with neurologist at the end of October. Prior Treatments and Tests 10/03 lumbar Xray 1. Transitional anatomy with sacralization of L5. 2. Mild degenerative disc and facet disease. lumbar MRI 03/21/19 The degenerative disc disease and facet osteoarthritis along the lumbosacral spine is relatively mild, focally is most prominent at L4-L5 with mild interval worsening of the degenerative changes at this level, left greater than right, to include increase asymmetric left greater than right posterior disc bulge/ protrusion and mild interval worsening of asymmetric left greater than right facet osteoarthritis. Significant spinal stenosis is present but mild at the left posterolateral recess, but foraminal stenosis has appreciably worsened with expected left greater than right impingement on the L4 nerve roots as a result. Treatment Goals Patient/Caregiver Goals 1. to be able to return to work and lift pallets without back discomfort 2. 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 ( up to 50lbs) Personal Factors Other Personal Factors That May Effect pt has depression and Therapy/Recovery currently taking Zoloft. PT-OP-C Subjective Start: 10/20/19 16:23 Freq: Status: Active Protocol: Document 11/08/19 09:46 SP (Rec: 11/08/19 10:35 SP [id number]) OP-PT Subjective Patient Comments Patient Comments Pt stated did alot of driving since last tx and made his back sore. Patient Reported Progress Same PT-OP-D Balance Start: 10/20/19 16:23 Freq: Status: Active Protocol: Document 10/20/19 16:24 HH (Rec: 10/20/19 17:09 HH [email or web address]) Balance Tests Single Limb Standing Single Limb- Right 25 Single Limb- Left 19 PT-OP-G Mobility & Gait Start: 10/20/19 16:23 Freq: Status: Active Protocol: Document 10/20/19 16:24 HH (Rec: 10/20/19 17:09 HH [email or web address]) OP Gait Assessment Comments Gait Comments pt has mild steppage gait on R side with limited active DF PT-OP-H Neuro Start: 10/20/19 16:23 Freq: Status: Active Protocol: Document 10/20/19 16:24 HH (Rec: 10/20/19 17:09 HH [email or web address]) Sensation Evaluation Location Details Right Foot Light Touch Impaired Comments Summary Comments tingling and numbness sensation at top of his R foot Deep Tendon Reflex & Clonus Assessment Deep Tendon Reflex Bilateral Achilles Deep Tendon Reflex 2+ Normal Bilateral Patellar Deep Tendon Reflex 2+ Normal PT-OP-K Range of Motion Start: 10/20/19 16:23 Freq: Status: Active Protocol: Document 10/24/19 08:57 LRN (Rec: 10/24/19 09:56 LRN [id number]) Ankle and Foot Goniometric Range of Motion Ankle and Foot Left Active Ankle/Foot ROM WFL No Plantarflexion 42 Right Active Ankle/Foot ROM WFL Yes Plantarflexion 65 Ankle and Foot ROM Limitations ROM Limitations Muscle Weakness Comments R ankle: DF lacks 42 degs's. L ankle: DF lacks 7 deg's. PT-OP-L Special Tests Start: 10/20/19 16:23 Freq: Status: Active Protocol: Document 10/20/19 16:24 HH (Rec: 10/20/19 17:09 HH [email or web address]) Special Tests Lumbar Spine Special Tests Prone Instability Test Test Results +ve L Straight Leg Raise Test Results +ve L Comments increase tension on L at 70 degrees. Slump Test Results +ve L Comments reports of back pain with cervical flexion and L knee extension PT-OP-M Strength Start: 10/20/19 16:23 Freq: Status: Active Protocol: Document 10/20/19 16:24 HH (Rec: 10/20/19 17:09 HH [email or web address]) Hip Strength Hip Manual Muscle Testing Right Flexion (L2) 4+ Good+ Extension (S1) 4+ Good+ Abduction 4+ Good+ Adduction 4+ Good+ Left Flexion (L2) 4- Good- Extension (S1) 4 Good Abduction 4- Good- Adduction 4 Good Knee Strength Knee Manual Muscle Testing Right Flexion (S2) 3+ Fair+ Extension (L3) 4- Good- Left Flexion (S2) 4 Good Extension (L3) 4 Good Ankle/Foot Strength Ankle and Foot Manual Muscle Testing Right Dorsiflexion (L4) 3- Fair- Plantarflexion (S1) 4 Good Inversion 4- Good- Eversion (S1) 4- Good- Left Dorsiflexion (L4) 5 Normal Plantarflexion (S1) 5 Normal Inversion 5 Normal Eversion (S1) 5 Normal PT-OP-Q Treatments Start: 10/20/19 16:23 Freq: Status: Active Protocol: Document 11/08/19 09:46 SP (Rec: 11/08/19 10:35 SP [id number]) Cardio Equipment Bicycle (Upright) Duration (Minutes) 6 Resistance 8- 4 min > 6- 2 min Seat Position 5 Therapeutic Exercises Supine Exercises core march Reps/Minutes x5 Comments cued PPT and slow pacing, level pelvis ab curl Supine Exercise Name with red therapy ball Reps/Minutes 3 mins Comments cues on TA engagement pt reports stretch at lumbar spine. LTR Supine Exercise Name with red therapy ball Reps/Minutes 4 mins Comments cues on slow control with using abdominals. Pelvic clock Supine Exercise Name Pelvic 12-6 Comments challenging 12 o'clock Hamstring/LE neural stretch Supine Exercise Name Hamstring/LE neural stretch Side bilateral Reps/Minutes Hold 10, f/b active DF x 10 - 3 sets Comments Manual ankle DF given to L LE. Prone Exercises quadruped tail wag Side bilateral Reps/Minutes 8 Comments cued neutral pelvis cat camel Prone Exercise Name Pelvic tilt Side bilateral Reps/Minutes 8 Comments cued PPT tailbone tuck PT-OP-R Modalities Start: 10/20/19 16:23 Freq: Status: Active Protocol: Document 11/08/19 09:46 SP (Rec: 11/08/19 10:35 SP [id number]) Electric Stimulation Electric Stimulation NMES (salvadorean) Body Location R ant tib Duration (Minutes) 8 Intensity 50-55 Contraction Type Normal Cycle 10/10 Ramp 2.0 Patient Position Sitting Comments instructed pt to perform active DF during ON time. PT-OP-T Assessment and Plan Start: 10/20/19 16:23 Freq: Status: Active Protocol: Document 11/08/19 09:46 SP (Rec: 11/08/19 10:35 SP [id number]) Physical Therapy Assessment Goals return to work Impairment pt is unable to lift now [employer] Goal (LTG) Pt will be able to return to lift heavy boxes and pallets up to 50 lbs again with safe bodymechanics LTG Duration 10 weeks pain Impairment pt has constant pain 5/10 at L low back Short Term Goal (STG) Pt will have pain no more than 3 for bending over, twisting, getting up bend down STG Duration 5 weeks [employer] Goal (LTG) Pt will have pain no more than 2 for bending over and lifting in order for him to start working again. LTG Duration 10 weeks neurological signs Impairment +ve for slump and SLR test Alf Goal (LTG) pt will be symptoms free for both slump and SLR special test to decrease neural tension for bend over activities LTG Duration 8 weeks Oswestry Impairment pt scores 50 on Oswestry Short Term Goal (STG) pt will score 39 or lower on Oswestry questionnaire to improve his quality of life STG Duration 5 weeks Alf Goal (LTG) pt will score 19 or lower on Oswestry questionnaire to improve his quality of life LTG Duration 10 weeks Three Impairment FCR has moderate tone with 2/4 tenderness to palpation Alf Goal (LTG) Pt to exhibit ECR tone WNL and no tenderness LTG Duration 12/14/19 Two Impairment Pt has a left shearer printed circuit boards strength 38 pounds less than his right shearer printed circuit boards Alf Goal (LTG) Pt to increase left shearer printed circuit boards strength to 95 pounds to demonstrate increased ability to perform job activities without pain LTG Duration 12/14/19 One Impairment Pt does not have an appropriate home exercise program Short Term Goal (STG) Pt to be independent and compliant with an appropriate HEP STG Duration 11/14/19 Assessment Summary Assessment Reviewed l/s ROM, stretching and TA HEP, required cuing for TA and PPT facilitation to decrease LS recruitment. Initiated quadruped lateral glides tail wag slow controlled movement for improved control with neutral pelvic alignment. Added SLS 30 sec LLE, 8 sec RLE contact as needed for balance. Physical Therapy Plan Frequency and Duration Frequency of Treatment 2x/Week Duration of Treatment 8 weeks Plan of Care Start Date 10/20/19 Plan of Care End Date 01/03/20 Therapeutic Interventions Therapeutic Interventions Home Exercise Program,Joint Mobilizations,Manual Therapy, Patient/Caregiver Education, Self-Care/Home Management,Soft Tissue Mobilization,Taping, Therapeutic Exercises Modalities Cold Pack/Ice Massage,Electric Stimulation,Hot Packs, Iontophoresis,Ultrasound Other Therapeutic Interventions Iontophoresis /c Dexamethasone , 4 mg/mL Next Visit Focus/Plan Next Note Type Treatment Note Next Visit Plan Assess respone to NMES on R ankle DF and SLS added to HEP. Continue per PT POC: core strengthening, R LE DF activities, flexibility and improve R LE DF to support LS stabiliztaion. Recommended L SIJ release distraction if needed.
--- NOTE | 2019-11-17 16:24 | PT.OTN ---
Current Diagnoses Other intervertebral disc degeneration, lumbosacral region (11/17/19) Strain of muscle, fascia and tendon of lower back, initial encounter (11/17/19) Physical Therapy Treatment Note PT-OP-A Visit Information Start: 10/20/19 16:23 Freq: Status: Active Protocol: Document 11/17/19 14:29 LRN (Rec: 11/17/19 15:09 LRN [id number]) Out-Patient Physical Therapy Visit Information Visit Information Visit Type Treatment Note Visit Start Time 14:30 Visit Stop Time 15:09 Total Visit Minutes 39 Visit Number 08/18 PT-OP-B Current Condition Start: 10/20/19 16:23 Freq: Status: Active Protocol: Document 10/20/19 16:24 HH (Rec: 10/20/19 17:09 HH [id number]) Current Condition History of Current Condition Onset Date mid September Current Complaints L sided back pain, R foot drop , difficulty in walking History of Current Condition Pt is a 54 yo male here for new onset of L sided back pain started from mid September. He stated he felt soreness at his low back one night after his work but he was unable to get out of bed the next morning. He was sure that it was nontraumatic and his sharp pain has gone but he is still having consistent achy pain. His pain is located in left low back wrapping around his waist without radiation down to his legs. Pain increases with bending over, twisting, getting up bend down and improves with resting in bed. 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 He also has history of kidney stone but it was resolved. Denies hematuria or indication for UTI/pyelonephritis. Lumbar MRI test that was done in March 2019 indicates patient has degenerative disc disease most prominent at L4- L5 level worse in left side and asymmetric posterior disc bulge/protrusion and facet osteoarthritis. Also, there is mild spinal stenosis present on the L4 nerve roots. Pt also has been having R foot drop since this March and his orthopedist Dr. Raphael believes he has possible nerve impingement below his R knee. Pt will have a consult with neurologist at the end of October. Prior Treatments and Tests 10/03 lumbar Xray 1. Transitional anatomy with sacralization of L5. 2. Mild degenerative disc and facet disease. lumbar MRI 03/21/19 The degenerative disc disease and facet osteoarthritis along the lumbosacral spine is relatively mild, focally is most prominent at L4-L5 with mild interval worsening of the degenerative changes at this level, left greater than right, to include increase asymmetric left greater than right posterior disc bulge/ protrusion and mild interval worsening of asymmetric left greater than right facet osteoarthritis. Significant spinal stenosis is present but mild at the left posterolateral recess, but foraminal stenosis has appreciably worsened with expected left greater than right impingement on the L4 nerve roots as a result. Treatment Goals Patient/Caregiver Goals 1. to be able to return to work and lift pallets without back discomfort 2. 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 ( up to 50lbs) Personal Factors Other Personal Factors That May Effect pt has depression and Therapy/Recovery currently taking Zoloft. PT-OP-C Subjective Start: 10/20/19 16:23 Freq: Status: Active Protocol: Document 11/17/19 14:29 LRN (Rec: 11/17/19 15:09 LRN [id number]) OP-PT Subjective Patient Comments Patient Comments States he is stiff and sore in the upper back, probably from sleeping wrong. About the same since the last session. Pt reports foot works good but has tingling, wierd feeling on top of foot since using EStim. States he is walking more normal and isn't dragging his foot. PT-OP-D Balance Start: 10/20/19 16:23 Freq: Status: Active Protocol: Document 11/17/19 14:29 LRN (Rec: 11/17/19 15:09 LRN [id number]) Balance Tests Single Limb Standing Single Limb- Right 19 Single Limb- Left 60 PT-OP-G Mobility & Gait Start: 10/20/19 16:23 Freq: Status: Active Protocol: Document 10/20/19 16:24 HH (Rec: 10/20/19 17:09 HH [email or web address]) OP Gait Assessment Comments Gait Comments pt has mild steppage gait on R side with limited active DF PT-OP-H Neuro Start: 10/20/19 16:23 Freq: Status: Active Protocol: Document 10/20/19 16:24 HH (Rec: 10/20/19 17:09 [email or web address]) Sensation Evaluation Location Details Right Foot Light Touch Impaired Comments Summary Comments tingling and numbness sensation at top of his R foot Deep Tendon Reflex & Clonus Assessment Deep Tendon Reflex Bilateral Achilles Deep Tendon Reflex 2+ Normal Bilateral Patellar Deep Tendon Reflex 2+ Normal PT-OP-K Range of Motion Start: 10/20/19 16:23 Freq: Status: Active Protocol: Document 10/24/19 08:57 LRN (Rec: 10/24/19 09:56 LRN [id number]) Ankle and Foot Goniometric Range of Motion Ankle and Foot Left Active Ankle/Foot ROM WFL No Plantarflexion 42 Right Active Ankle/Foot ROM WFL Yes Plantarflexion 65 Ankle and Foot ROM Limitations ROM Limitations Muscle Weakness Comments R ankle: DF lacks 42 degs's. L ankle: DF lacks 7 deg's. PT-OP-L Special Tests Start: 10/20/19 16:23 Freq: Status: Active Protocol: Document 10/20/19 16:24 HH (Rec: 10/20/19 17:09 [email or web address]) Special Tests Lumbar Spine Special Tests Prone Instability Test Test Results +ve L Straight Leg Raise Test Results +ve L Comments increase tension on L at 70 degrees. Slump Test Results +ve L Comments reports of back pain with cervical flexion and L knee extension PT-OP-M Strength Start: 10/20/19 16:23 Freq: Status: Active Protocol: Document 10/20/19 16:24 HH (Rec: 10/20/19 17:09 [email or web address]) Hip Strength Hip Manual Muscle Testing Right Flexion (L2) 4+ Good+ Extension (S1) 4+ Good+ Abduction 4+ Good+ Adduction 4+ Good+ Left Flexion (L2) 4- Good- Extension (S1) 4 Good Abduction 4- Good- Adduction 4 Good Knee Strength Knee Manual Muscle Testing Right Flexion (S2) 3+ Fair+ Extension (L3) 4- Good- Left Flexion (S2) 4 Good Extension (L3) 4 Good Ankle/Foot Strength Ankle and Foot Manual Muscle Testing Right Dorsiflexion (L4) 3- Fair- Plantarflexion (S1) 4 Good Inversion 4- Good- Eversion (S1) 4- Good- Left Dorsiflexion (L4) 5 Normal Plantarflexion (S1) 5 Normal Inversion 5 Normal Eversion (S1) 5 Normal PT-OP-Q Treatments Start: 10/20/19 16:23 Freq: Status: Active Protocol: Document 11/17/19 14:29 LRN (Rec: 11/17/19 15:09 LRN [id number]) Cardio Equipment Bicycle (Upright) Duration (Minutes) 9 Resistance 8 Seat Position 5 Other Working hard. Therapeutic Exercises Supine Exercises core march Supine Exercise Name Core May Reps/Minutes 3' Comments cued PPT and slow pacing, level pelvis ab curl Supine Exercise Name with red therapy ball Reps/Minutes 3 mins Comments cues on TA engagement pt reports stretch at lumbar spine. LTR Supine Exercise Name with red therapy ball Reps/Minutes 4 mins Comments cues on slow control with using abdominals. Hamstring/LE neural stretch Supine Exercise Name Hamstring/LE neural stretch Side bilateral Reps/Minutes Hold 10, f/b active DF x 10 - 3 sets Comments Manual ankle DF given to L LE. Sitting Exercises Ankle IV/EV Sitting Exercise Name Ankle IV/EV strengthening Side right Resistance Lev 1 T-Band Reps/Minutes 15x Comments Extra time for proper performing of ex. Ankle DF Sitting Exercise Name Ankle DF strengthening Side right Resistance Lev 1 T-Band Reps/Minutes 15x Comments Extra time for determining proper positioning Standing Exercises SLS ex Standing Exercise Name SLS w/arms by sides Side bilateral Reps/Minutes 4' Comments 19 R, 60+ L. Self-Care/Home Management Treatment Education Patient Education Home Exercise Program Activities Self-Care/Home Management Activities Issued and reviewed HEP: Ankle DF/EV/IV strengthening with issued Lev 1 T-Band. PT-OP-R Modalities Start: 10/20/19 16:23 Freq: Status: Active Protocol: Document 11/08/19 09:46 SP (Rec: 11/08/19 10:35 SP [id number]) Electric Stimulation Electric Stimulation NMES (anguillan) Body Location R ant tib Duration (Minutes) 8 Intensity 50-55 Contraction Type Normal Cycle 10/10 Ramp 2.0 Patient Position Sitting Comments instructed pt to perform active DF during ON time. PT-OP-T Assessment and Plan Start: 10/20/19 16:23 Freq: Status: Active Protocol: Document 11/17/19 14:29 LRN (Rec: 11/17/19 15:09 LRN [id number]) Physical Therapy Assessment Goals return to work Impairment pt is unable to lift now Intermediate Goal (LTG) Pt will be able to return to lift heavy boxes and pallets up to 50 lbs again with safe bodymechanics LTG Duration 10 weeks pain Impairment pt has constant pain 5/10 at L low back Short Term Goal (STG) Pt will have pain no more than 3 for bending over, twisting, getting up bend down STG Duration 5 weeks Intermediate Goal (LTG) Pt will have pain no more than 2 for bending over and lifting in order for him to start working again. LTG Duration 10 weeks neurological signs Impairment +ve for slump and SLR test Intermediate Goal (LTG) pt will be symptoms free for both slump and SLR special test to decrease neural tension for bend over activities LTG Duration 8 weeks Oswestry Impairment pt scores 50 on Oswestry Short Term Goal (STG) pt will score 39 or lower on Oswestry questionnaire to improve his quality of life STG Duration 5 weeks Intermediate Goal (LTG) pt will score 19 or lower on Oswestry questionnaire to improve his quality of life LTG Duration 10 weeks Three Impairment FCR has moderate tone with 2/4 tenderness to palpation Intermediate Goal (LTG) Pt to exhibit ECR tone WNL and no tenderness LTG Duration 12/14/19 Two Impairment Pt 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 Assessment Summary Assessment L PSLR ~45 deg's; therefore neural tension is present. SLS was 19 secs R, 60+ L; therefore balance is decreased on the right, probably due to weakness of ankle. Physical Therapy Plan Frequency and Duration Frequency of Treatment 2x/Week Duration of Treatment 8 weeks Plan of Care Start Date 10/20/19 Plan of Care End Date 01/03/20 Next Visit Focus/Plan Next Note Type Treatment Note Next Visit Plan Review SLS and ankle strengthening that was added to HEP. Continue per PT POC: core strengthening, R LE DF activities, flexibility and improve R LE DF to support LS stabilization. Recommended L SIJ release distraction if needed.
--- NOTE | 2019-11-22 16:55 | PT.OTN ---
Current Diagnoses Other intervertebral disc degeneration, lumbosacral region (11/22/19) Strain of muscle, fascia and tendon of lower back, initial encounter (11/22/19) Physical Therapy Treatment Note PT-OP-A Visit Information Start: 10/20/19 16:23 Freq: Status: Active Protocol: Document 11/22/19 09:11 LRN (Rec: 11/22/19 09:51 LRN [id number]) Out-Patient Physical Therapy Visit Information Visit Information Visit Type Treatment Note Visit Start Time 09:11 Visit Stop Time 09:51 Total Visit Minutes 40 Visit Number 09/17 PT-OP-B Current Condition Start: 10/20/19 16:23 Freq: Status: Active Protocol: Document 10/20/19 16:24 HH (Rec: 10/20/19 17:09 HH [email or web address]) Current Condition History of Current Condition Onset Date mid September Current Complaints L sided back pain, R foot drop , difficulty in walking History of Current Condition Pt is a 54 yo male here for new onset of L sided back pain started from mid September. He stated he felt soreness at his low back one night after his work but he was unable to get out of bed the next morning. He was sure that it was nontraumatic and his sharp pain has gone but he is still having consistent achy pain. His pain is located in left low back wrapping around his waist without radiation down to his legs. Pain increases with bending over, twisting, getting up bend down and improves with resting in bed. 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 He also has history of kidney stone but it was resolved. Denies hematuria or indication for UTI/pyelonephritis. Lumbar MRI test that was done in March 2019 indicates patient has degenerative disc disease most prominent at L4- L5 level worse in left side and asymmetric posterior disc bulge/protrusion and facet osteoarthritis. Also, there is mild spinal stenosis present on the L4 nerve roots. Pt also has been having R foot drop since this March and his orthopedist Dr. Raphael believes he has possible nerve impingement below his R knee. Pt will have a consult with neurologist at the end of October. Prior Treatments and Tests 10/03 lumbar Xray 1. Transitional anatomy with sacralization of L5. 2. Mild degenerative disc and facet disease. lumbar MRI 03/21/19 The degenerative disc disease and facet osteoarthritis along the lumbosacral spine is relatively mild, focally is most prominent at L4-L5 with mild interval worsening of the degenerative changes at this level, left greater than right, to include increase asymmetric left greater than right posterior disc bulge/ protrusion and mild interval worsening of asymmetric left greater than right facet osteoarthritis. Significant spinal stenosis is present but mild at the left posterolateral recess, but foraminal stenosis has appreciably worsened with expected left greater than right impingement on the L4 nerve roots as a result. Treatment Goals Patient/Caregiver Goals 1. to be able to return to work and lift pallets without back discomfort 2. 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 ( up to 50lbs) Personal Factors Other Personal Factors That May Effect pt has depression and Therapy/Recovery currently taking Zoloft. PT-OP-C Subjective Start: 10/20/19 16:23 Freq: Status: Active Protocol: Document 11/22/19 09:11 LRN (Rec: 11/22/19 09:51 LRN [id number]) OP-PT Subjective Patient Comments Patient Comments L shoulder is sore from flu shot and having a little more trouble breathing due to all the smoke and his smoking. Back (L5-S1 and L sacral border) still hurts, pain rated 3-4/10. Top of the foot is starting to ache more instead of tingling. PT-OP-D Balance Start: 10/20/19 16:23 Freq: Status: Active Protocol: Document 11/17/19 14:29 LRN (Rec: 11/17/19 15:09 LRN [id number]) Balance Tests Single Limb Standing Single Limb- Right 19 Single Limb- Left 60 PT-OP-G Mobility & Gait Start: 10/20/19 16:23 Freq: Status: Active Protocol: Document 10/20/19 16:24 HH (Rec: 10/20/19 17:09 HH [email or web address]) OP Gait Assessment Comments Gait Comments pt has mild steppage gait on R side with limited active DF PT-OP-H Neuro Start: 10/20/19 16:23 Freq: Status: Active Protocol: Document 10/20/19 16:24 HH (Rec: 10/20/19 17:09 [email or web address]) Sensation Evaluation Location Details Right Foot Light Touch Impaired Comments Summary Comments tingling and numbness sensation at top of his R foot Deep Tendon Reflex & Clonus Assessment Deep Tendon Reflex Bilateral Achilles Deep Tendon Reflex 2+ Normal Bilateral Patellar Deep Tendon Reflex 2+ Normal PT-OP-K Range of Motion Start: 10/20/19 16:23 Freq: Status: Active Protocol: Document 10/24/19 08:57 LRN (Rec: 10/24/19 09:56 LRN [id number]) Ankle and Foot Goniometric Range of Motion Ankle and Foot Left Active Ankle/Foot ROM WFL No Plantarflexion 42 Right Active Ankle/Foot ROM WFL Yes Plantarflexion 65 Ankle and Foot ROM Limitations ROM Limitations Muscle Weakness Comments R ankle: DF lacks 42 degs's. L ankle: DF lacks 7 deg's. PT-OP-L Special Tests Start: 10/20/19 16:23 Freq: Status: Active Protocol: Document 10/20/19 16:24 HH (Rec: 10/20/19 17:09 [email or web address]) Special Tests Lumbar Spine Special Tests Prone Instability Test Test Results +ve L Straight Leg Raise Test Results +ve L Comments increase tension on L at 70 degrees. Slump Test Results +ve L Comments reports of back pain with cervical flexion and L knee extension PT-OP-M Strength Start: 10/20/19 16:23 Freq: Status: Active Protocol: Document 10/20/19 16:24 HH (Rec: 10/20/19 17:09 [email or web address]) Hip Strength Hip Manual Muscle Testing Right Flexion (L2) 4+ Good+ Extension (S1) 4+ Good+ Abduction 4+ Good+ Adduction 4+ Good+ Left Flexion (L2) 4- Good- Extension (S1) 4 Good Abduction 4- Good- Adduction 4 Good Knee Strength Knee Manual Muscle Testing Right Flexion (S2) 3+ Fair+ Extension (L3) 4- Good- Left Flexion (S2) 4 Good Extension (L3) 4 Good Ankle/Foot Strength Ankle and Foot Manual Muscle Testing Right Dorsiflexion (L4) 3- Fair- Plantarflexion (S1) 4 Good Inversion 4- Good- Eversion (S1) 4- Good- Left Dorsiflexion (L4) 5 Normal Plantarflexion (S1) 5 Normal Inversion 5 Normal Eversion (S1) 5 Normal PT-OP-Q Treatments Start: 10/20/19 16:23 Freq: Status: Active Protocol: Document 11/22/19 09:11 LRN (Rec: 11/22/19 09:51 LRN [id number]) Cardio Equipment Bicycle (Upright) Duration (Minutes) 8 Resistance 8 Seat Position 5 Other v. cuing throughout ex to keep work level at somewhat hard Therapeutic Exercises Supine Exercises Hamstring/LE neural stretch Supine Exercise Name Hamstring/LE neural stretch Side bilateral Reps/Minutes Hold 10, f/b active DF x 10 - 3 sets Comments Manual ankle DF given to L LE. Prone Exercises Ankle DF Prone Exercise Name Ankle DF Reps/Minutes 15x quadruped tail wag Side bilateral Reps/Minutes 8 Comments cued neutral pelvis Sitting Exercises Ankle IV/EV Sitting Exercise Name Ankle IV/EV strengthening Side right Resistance Lev 1 T-Band Reps/Minutes 15x 2 Comments Extra time for proper performing of ex. Ankle DF Sitting Exercise Name Ankle DF strengthening Side right Resistance Lev 1 T-Band Reps/Minutes 15x 2 Comments Extra time for determining proper positioning Standing Exercises SLS ex Standing Exercise Name SLS w/arms by sides Side bilateral Reps/Minutes 4' Comments 19 R, 60+ L. Other Exercises Rock Backs Other Exercise Name Rock Back, sitting on heels Reps/Minutes 2' Comments Extra time for instructions Cat/Camel Other Exercise Name Cat/Camel stretch Reps/Minutes 3' Comments Extra time for instructions Manual Therapy Treatment Soft Tissue Mobilization L sacral border Body Location L Sacral Border Mobilization Type Strumming,Other Body Position Prone Comments Circles along sacral border Joint Mobilizations hip distraction Grade III Body Position Supine Reps/Duration 2 mins Comments pt reports he feels good with decompression sensation. PT-OP-R Modalities Start: 10/20/19 16:23 Freq: Status: Active Protocol: Document 11/08/19 09:46 SP (Rec: 11/08/19 10:35 SP [id number]) Electric Stimulation Electric Stimulation NMES (tuvaluan) Body Location R ant tib Duration (Minutes) 8 Intensity 50-55 Contraction Type Normal Cycle 10/10 Ramp 2.0 Patient Position Sitting Comments instructed pt to perform active DF during ON time. PT-OP-T Assessment and Plan Start: 10/20/19 16:23 Freq: Status: Active Protocol: Document 11/22/19 09:11 LRN (Rec: 11/22/19 09:51 LRN [id number]) Physical Therapy Assessment Goals return to work Impairment pt is unable to lift now General House Worker Goal (LTG) Pt will be able to return to lift heavy boxes and pallets up to 50 lbs again with safe bodymechanics LTG Duration 10 weeks pain Impairment pt has constant pain 5/10 at L low back Short Term Goal (STG) Pt will have pain no more than 3 for bending over, twisting, getting up bend down STG Duration 5 weeks Correction Goal (LTG) Pt will have pain no more than 2 for bending over and lifting in order for him to start working again. LTG Duration 10 weeks neurological signs Impairment +ve for slump and SLR test General House Worker Goal (LTG) pt will be symptoms free for both slump and SLR special test to decrease neural tension for bend over activities LTG Duration 8 weeks Oswestry Impairment pt scores 50 on Oswestry Short Term Goal (STG) pt will score 39 or lower on Oswestry questionnaire to improve his quality of life STG Duration 5 weeks Correction Goal (LTG) pt will score 19 or lower on Oswestry questionnaire to improve his quality of life LTG Duration 10 weeks Three Impairment FCR has moderate tone with 2/4 tenderness to palpation Correction Goal (LTG) Pt to exhibit ECR tone WNL and no tenderness LTG Duration 12/14/19 Two Impairment 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 Pt would benefit from coordination stepping activities to decrease his risk of R ankle injury from his instability. His R ankle strength appears to be improving. Physical Therapy Plan Frequency and Duration Frequency of Treatment 2x/Week Duration of Treatment 8 weeks Plan of Care Start Date 10/20/19 Plan of Care End Date 01/03/20 Next Visit Focus/Plan Next Note Type Treatment Note Next Visit Plan Progress balance (R SLS) and ankle strengthening. Issue HEP of standing balance ex's. Strengthen UE and initiate lifting body mechanics training as tolerated. Continue per PT POC: core strengthening, R LE DF activities, flexibility and improve R LE DF to support LS stabilization. Recommended L SIJ release distraction as needed for LB/SIJ pain relief.
--- NOTE | 2019-11-25 18:22 | PT.OTN ---
Current Diagnoses Other intervertebral disc degeneration, lumbosacral region (11/25/19) Strain of muscle, fascia and tendon of lower back, initial encounter (11/25/19) Physical Therapy Treatment Note PT-OP-A Visit Information Start: 10/20/19 16:23 Freq: Status: Active Protocol: Document 11/25/19 09:03 LRN (Rec: 11/25/19 09:55 LRN [id number]) Out-Patient Physical Therapy Visit Information Visit Information Visit Type Treatment Note Visit Start Time 09:03 Visit Stop Time 09:54 Total Visit Minutes 51 Visit Number 10/18 PT-OP-B Current Condition Start: 10/20/19 16:23 Freq: Status: Active Protocol: Document 10/20/19 16:24 HH (Rec: 10/20/19 17:09 HH [email or web address]) Current Condition History of Current Condition Onset Date mid September Current Complaints L sided back pain, R foot drop , difficulty in walking History of Current Condition Pt is a 54 yo male here for new onset of L sided back pain started from mid September. He stated he felt soreness at his low back one night after his work but he was unable to get out of bed the next morning. He was sure that it was nontraumatic and his sharp pain has gone but he is still having consistent achy pain. His pain is located in left low back wrapping around his waist without radiation down to his legs. Pain increases with bending over, twisting, getting up bend down and improves with resting in bed. 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 He also has history of kidney stone but it was resolved. Denies hematuria or indication for UTI/pyelonephritis. Lumbar MRI test that was done in March 2019 indicates patient has degenerative disc disease most prominent at L4- L5 level worse in left side and asymmetric posterior disc bulge/protrusion and facet osteoarthritis. Also, there is mild spinal stenosis present on the L4 nerve roots. Pt also has been having R foot drop since this March and his orthopedist Dr. Raphael believes he has possible nerve impingement below his R knee. Pt will have a consult with neurologist at the end of October. Prior Treatments and Tests 10/03 lumbar Xray 1. Transitional anatomy with sacralization of L5. 2. Mild degenerative disc and facet disease. lumbar MRI 03/21/19 The degenerative disc disease and facet osteoarthritis along the lumbosacral spine is relatively mild, focally is most prominent at L4-L5 with mild interval worsening of the degenerative changes at this level, left greater than right, to include increase asymmetric left greater than right posterior disc bulge/ protrusion and mild interval worsening of asymmetric left greater than right facet osteoarthritis. Significant spinal stenosis is present but mild at the left posterolateral recess, but foraminal stenosis has appreciably worsened with expected left greater than right impingement on the L4 nerve roots as a result. Treatment Goals Patient/Caregiver Goals 1. to be able to return to work and lift pallets without back discomfort 2. 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 ( up to 50lbs) Personal Factors Other Personal Factors That May Effect pt has depression and Therapy/Recovery currently taking Zoloft. PT-OP-C Subjective Start: 10/20/19 16:23 Freq: Status: Active Protocol: Document 11/25/19 09:03 LRN (Rec: 11/25/19 09:55 LRN [id number]) OP-PT Subjective Patient Comments Patient Comments Hurting at L SIJ & top of R foot. L back pain 5/10 to start, 4/10 afterward. Patient Questionnaires Oswestry Low Back Index Oswestry Score 50 Oswestry Impairment 40 to 59% Impaired (Score 40- 59) OP-PT Pain Assessment Location L lumbar Pain Location Details 4 Scale Used Numeric (0 - 10) PT-OP-D Balance Start: 10/20/19 16:23 Freq: Status: Active Protocol: Document 11/17/19 14:29 LRN (Rec: 11/17/19 15:09 LRN [id number]) Balance Tests Single Limb Standing Single Limb- Right 19 Single Limb- Left 60 PT-OP-G Mobility & Gait Start: 10/20/19 16:23 Freq: Status: Active Protocol: Document 10/20/19 16:24 HH (Rec: 10/20/19 17:09 HH [email or web address]) OP Gait Assessment Comments Gait Comments pt has mild steppage gait on R side with limited active DF PT-OP-H Neuro Start: 10/20/19 16:23 Freq: Status: Active Protocol: Document 10/20/19 16:24 HH (Rec: 10/20/19 17:09 [email or web address]) Sensation Evaluation Location Details Right Foot Light Touch Impaired Comments Summary Comments tingling and numbness sensation at top of his R foot Deep Tendon Reflex & Clonus Assessment Deep Tendon Reflex Bilateral Achilles Deep Tendon Reflex 2+ Normal Bilateral Patellar Deep Tendon Reflex 2+ Normal PT-OP-K Range of Motion Start: 10/20/19 16:23 Freq: Status: Active Protocol: Document 11/25/19 09:03 LRN (Rec: 11/25/19 09:55 LRN [id number]) Hip Goniometric Range of Motion Hip Right Passive Testing Position Supine Straight Leg Raise 40 Left Passive Testing Position Supine Straight Leg Raise 45 PT-OP-L Special Tests Start: 10/20/19 16:23 Freq: Status: Active Protocol: Document 10/20/19 16:24 HH (Rec: 10/20/19 17:09 [email or web address]) Special Tests Lumbar Spine Special Tests Prone Instability Test Test Results +ve L Straight Leg Raise Test Results +ve L Comments increase tension on L at 70 degrees. Slump Test Results +ve L Comments reports of back pain with cervical flexion and L knee extension PT-OP-M Strength Start: 10/20/19 16:23 Freq: Status: Active Protocol: Document 10/20/19 16:24 HH (Rec: 10/20/19 17:09 [email or web address]) Hip Strength Hip Manual Muscle Testing Right Flexion (L2) 4+ Good+ Extension (S1) 4+ Good+ Abduction 4+ Good+ Adduction 4+ Good+ Left Flexion (L2) 4- Good- Extension (S1) 4 Good Abduction 4- Good- Adduction 4 Good Knee Strength Knee Manual Muscle Testing Right Flexion (S2) 3+ Fair+ Extension (L3) 4- Good- Left Flexion (S2) 4 Good Extension (L3) 4 Good Ankle/Foot Strength Ankle and Foot Manual Muscle Testing Right Dorsiflexion (L4) 3- Fair- Plantarflexion (S1) 4 Good Inversion 4- Good- Eversion (S1) 4- Good- Left Dorsiflexion (L4) 5 Normal Plantarflexion (S1) 5 Normal Inversion 5 Normal Eversion (S1) 5 Normal PT-OP-Q Treatments Start: 10/20/19 16:23 Freq: Status: Active Protocol: Document 11/25/19 09:03 LRN (Rec: 11/25/19 09:55 LRN [id number]) Cardio Equipment Bicycle (Upright) Duration (Minutes) 8 Resistance 8 Seat Position 5 Other I/S pt to work somewhat hard, but not into pain. Therapeutic Exercises Supine Exercises Hamstring/LE neural stretch Supine Exercise Name Hamstring/LE neural stretch Side bilateral Reps/Minutes Hold 10, f/b active DF x 10 - 3 sets Comments Manual ankle DF given to L LE. Manual Therapy Treatment Manual Traction Lumbar Details Lumbar traction Body Position Supine Reps/Duration 10' Comments Pain decreased after traction to 3/10. PT-OP-R Modalities Start: 10/20/19 16:23 Freq: Status: Active Protocol: Document 11/08/19 09:46 SP (Rec: 11/08/19 10:35 SP [id number]) Electric Stimulation Electric Stimulation NMES (belgian) Body Location R ant tib Duration (Minutes) 8 Intensity 50-55 Contraction Type Normal Cycle 10/10 Ramp 2.0 Patient Position Sitting Comments instructed pt to perform active DF during ON time. PT-OP-T Assessment and Plan Start: 10/20/19 16:23 Freq: Status: Active Protocol: Document 11/25/19 09:03 LRN (Rec: 11/25/19 09:55 LRN [id number]) Physical Therapy Assessment Goals return to work Impairment pt is unable to lift now Oncology Nurse Navigator Goal (LTG) Pt will be able to return to lift heavy boxes and pallets up to 50 lbs again with safe bodymechanics LTG Duration 10 weeks (11/25/19: Pt able to lift 1# without pain) pain Impairment pt has constant pain 5/10 at L low back Short Term Goal (STG) Pt will have pain no more than 3 for bending over, twisting, getting up bend down STG Duration 5 weeks Half-Way Goal (LTG) Pt will have pain no more than 2 for bending over and lifting in order for him to start working again. LTG Duration 10 weeks neurological signs Impairment +ve for slump and SLR test Oncology Nurse Navigator Goal (LTG) pt will be symptoms free for both slump and SLR special test to decrease neural tension for bend over activities. (11/25/19: PSLR: 40 R, 45 L) LTG Duration 8 weeks (11/25/19: NOT MET: + PSLR bilaterally) Oswestry Impairment pt scores 50 on Oswestry Short Term Goal (STG) pt will score 39 or lower on Oswestry questionnaire to improve his quality of life STG Duration 5 weeks (11/25/19: No change in score but changes in different areas) Half-Way Goal (LTG) pt will score 19 or lower on Oswestry questionnaire to improve his quality of life LTG Duration 10 weeks Assessment Summary Assessment +PSLR bilaterally. + response to manual lumbar traction. Pt had decreased pain and a feeling of greater ease of movement after treatment. Physical Therapy Plan Frequency and Duration Frequency of Treatment 2x/Week Duration of Treatment 8 weeks Plan of Care Start Date 10/20/19 Plan of Care End Date 01/03/20 Other Referrals/Consults Referrals/Consults Recommended Recommend pt depression be addressed. Next Visit Focus/Plan Next Note Type Treatment Note Next Visit Plan Complete L&I forms with pt. Progress balance (R SLS) and ankle strengthening. Issue HEP of standing balance ex's. Strengthen UE and initiate lifting body mechanics training as tolerated. Continue per PT POC: core strengthening, R LE DF activities, flexibility and improve R LE DF to support LS stabilization. Recommended L SIJ release distraction as needed for LB/SIJ pain relief.
--- NOTE | 2019-11-28 16:23 | PT.OTN ---
Current Diagnoses Other intervertebral disc degeneration, lumbosacral region (11/28/19) Strain of muscle, fascia and tendon of lower back, initial encounter (11/28/19) Physical Therapy Treatment Note PT-OP-A Visit Information Start: 10/20/19 16:23 Freq: Status: Active Protocol: Document 11/28/19 13:52 HH (Rec: 11/28/19 16:23 [id number]) Out-Patient Physical Therapy Visit Information Visit Information Visit Type Treatment Note Visit Start Time 13:50 Visit Stop Time 14:30 Total Visit Minutes 40 Visit Number 11/18 Number of POLICE LIEUTENANT Visits 0 PT-OP-B Current Condition Start: 10/20/19 16:23 Freq: Status: Active Protocol: Document 10/20/19 16:24 HH (Rec: 10/20/19 17:09 HH [email or web address]) Current Condition History of Current Condition Onset Date mid September Current Complaints L sided back pain, R foot drop , difficulty in walking History of Current Condition Pt is a 54 yo male here for new onset of L sided back pain started from mid September. He stated he felt soreness at his low back one night after his work but he was unable to get out of bed the next morning. He was sure that it was nontraumatic and his sharp pain has gone but he is still having consistent achy pain. His pain is located in left low back wrapping around his waist without radiation down to his legs. Pain increases with bending over, twisting, getting up bend down and improves with resting in bed. 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 He also has history of kidney stone but it was resolved. Denies hematuria or indication for UTI/pyelonephritis. Lumbar MRI test that was done in March 2019 indicates patient has degenerative disc disease most prominent at L4- L5 level worse in left side and asymmetric posterior disc bulge/protrusion and facet osteoarthritis. Also, there is mild spinal stenosis present on the L4 nerve roots. Pt also has been having R foot drop since this March and his orthopedist Dr. Raphael believes he has possible nerve impingement below his R knee. Pt will have a consult with neurologist at the end of October. Prior Treatments and Tests 10/03 lumbar Xray 1. Transitional anatomy with sacralization of L5. 2. Mild degenerative disc and facet disease. lumbar MRI 03/21/19 The degenerative disc disease and facet osteoarthritis along the lumbosacral spine is relatively mild, focally is most prominent at L4-L5 with mild interval worsening of the degenerative changes at this level, left greater than right, to include increase asymmetric left greater than right posterior disc bulge/ protrusion and mild interval worsening of asymmetric left greater than right facet osteoarthritis. Significant spinal stenosis is present but mild at the left posterolateral recess, but foraminal stenosis has appreciably worsened with expected left greater than right impingement on the L4 nerve roots as a result. Treatment Goals Patient/Caregiver Goals 1. to be able to return to work and lift pallets without back discomfort 2. 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 ( up to 50lbs) Personal Factors Other Personal Factors That May Effect pt has depression and Therapy/Recovery currently taking Zoloft. PT-OP-C Subjective Start: 10/20/19 16:23 Freq: Status: Active Protocol: Document 11/28/19 13:52 HH (Rec: 11/28/19 16:23 HH [id number]) OP-PT Subjective Patient Comments Patient Comments My R foot is getting better and close to normal during walking, but it does get sore and ache. My L low back has been aching more likely . The more i move the more it hurts. Pain at 4-5/10. PT-OP-D Balance Start: 10/20/19 16:23 Freq: Status: Active Protocol: Document 11/17/19 14:29 LRN (Rec: 11/17/19 15:09 LRN [id number]) Balance Tests Single Limb Standing Single Limb- Right 19 Single Limb- Left 60 PT-OP-G Mobility & Gait Start: 10/20/19 16:23 Freq: Status: Active Protocol: Document 10/20/19 16:24 HH (Rec: 10/20/19 17:09 HH [email or web address]) OP Gait Assessment Comments Gait Comments pt has mild steppage gait on R side with limited active DF PT-OP-H Neuro Start: 10/20/19 16:23 Freq: Status: Active Protocol: Document 10/20/19 16:24 HH (Rec: 10/20/19 17:09 [email or web address]) Sensation Evaluation Location Details Right Foot Light Touch Impaired Comments Summary Comments tingling and numbness sensation at top of his R foot Deep Tendon Reflex & Clonus Assessment Deep Tendon Reflex Bilateral Achilles Deep Tendon Reflex 2+ Normal Bilateral Patellar Deep Tendon Reflex 2+ Normal PT-OP-K Range of Motion Start: 10/20/19 16:23 Freq: Status: Active Protocol: Document 11/25/19 09:03 LRN (Rec: 11/25/19 09:55 LRN [id number]) Hip Goniometric Range of Motion Hip Right Passive Testing Position Supine Straight Leg Raise 40 Left Passive Testing Position Supine Straight Leg Raise 45 PT-OP-L Special Tests Start: 10/20/19 16:23 Freq: Status: Active Protocol: Document 10/20/19 16:24 HH (Rec: 10/20/19 17:09 [email or web address]) Special Tests Lumbar Spine Special Tests Prone Instability Test Test Results +ve L Straight Leg Raise Test Results +ve L Comments increase tension on L at 70 degrees. Slump Test Results +ve L Comments reports of back pain with cervical flexion and L knee extension PT-OP-M Strength Start: 10/20/19 16:23 Freq: Status: Active Protocol: Document 10/20/19 16:24 HH (Rec: 10/20/19 17:09 [email or web address]) Hip Strength Hip Manual Muscle Testing Right Flexion (L2) 4+ Good+ Extension (S1) 4+ Good+ Abduction 4+ Good+ Adduction 4+ Good+ Left Flexion (L2) 4- Good- Extension (S1) 4 Good Abduction 4- Good- Adduction 4 Good Knee Strength Knee Manual Muscle Testing Right Flexion (S2) 3+ Fair+ Extension (L3) 4- Good- Left Flexion (S2) 4 Good Extension (L3) 4 Good Ankle/Foot Strength Ankle and Foot Manual Muscle Testing Right Dorsiflexion (L4) 3- Fair- Plantarflexion (S1) 4 Good Inversion 4- Good- Eversion (S1) 4- Good- Left Dorsiflexion (L4) 5 Normal Plantarflexion (S1) 5 Normal Inversion 5 Normal Eversion (S1) 5 Normal PT-OP-Q Treatments Start: 10/20/19 16:23 Freq: Status: Active Protocol: Document 11/28/19 13:52 HH (Rec: 11/28/19 16:23 HH [id number]) Cardio Equipment Bicycle (Upright) Duration (Minutes) 8 Resistance 8 Seat Position 5 Other I/S pt to work somewhat hard, but not into pain. Therapeutic Exercises Supine Exercises message ball Supine Exercise Name on L piriformis Side left Comments for HEP Pirifromis stretch Supine Exercise Name FADDIR position Side right Reps/Minutes 30 secs hold Comments L felt more than R, muscle guarding noted. Hamstring/LE neural stretch Supine Exercise Name Hamstring/LE neural stretch Side bilateral Reps/Minutes Hold 10, f/b active DF x 10 - 3 sets Comments Manual ankle DF given to L LE. Sidelying Exercises clam shell Sidelying Exercise Name cues on preventing lumbar rotation. Side left Reps/Minutes 8 x 3 Comments for HEP, pain and weakness noted Standing Exercises toe tap Standing Exercise Name 3 way toe tap Side right Comments for HEP Manual Therapy Treatment Soft Tissue Mobilization L piriformis Mobilization Type Sustained Pressure,Trigger Point Release Intensity/Depth Moderate Body Position Sidelying Comments significant tenderness noted PT-OP-R Modalities Start: 10/20/19 16:23 Freq: Status: Active Protocol: Document 11/08/19 09:46 SP (Rec: 11/08/19 10:35 SP [id number]) Electric Stimulation Electric Stimulation NMES (rwandan) Body Location R ant tib Duration (Minutes) 8 Intensity 50-55 Contraction Type Normal Cycle 10/10 Ramp 2.0 Patient Position Sitting Comments instructed pt to perform active DF during ON time. PT-OP-T Assessment and Plan Start: 10/20/19 16:23 Freq: Status: Active Protocol: Document 11/28/19 13:52 HH (Rec: 11/28/19 16:23 [id number]) Physical Therapy Assessment Goals return to work Impairment pt is unable to lift now Coil Cutter Goal (LTG) Pt will be able to return to lift heavy boxes and pallets up to 50 lbs again with safe bodymechanics LTG Duration 10 weeks (11/25/19: Pt able to lift 1# without pain) pain Impairment pt has constant pain 5/10 at L low back Short Term Goal (STG) Pt will have pain no more than 3 for bending over, twisting, getting up bend down STG Duration 5 weeks Coil Cutter Goal (LTG) Pt will have pain no more than 2 for bending over and lifting in order for him to start working again. LTG Duration 10 weeks neurological signs Impairment +ve for slump and SLR test Skilled Nursing Goal (LTG) pt will be symptoms free for both slump and SLR special test to decrease neural tension for bend over activities. (11/25/19: PSLR: 40 R, 45 L) LTG Duration 8 weeks (11/25/19: NOT MET: + PSLR bilaterally) Oswestry Impairment pt scores 50 on Oswestry Short Term Goal (STG) pt will score 39 or lower on Oswestry questionnaire to improve his quality of life STG Duration 5 weeks (11/25/19: No change in score but changes in different areas) Coil Cutter Goal (LTG) pt will score 19 or lower on Oswestry questionnaire to improve his quality of life LTG Duration 10 weeks Assessment Summary Assessment Pt shows improved SLS since IE L= >60s: R= 45s. Pt shows good R ankle strength in open chain position but lack of coordination during SL balance . Added toe tap in his HEP. Modified his HEP with focus on L hip mobility and piriformis stretch. Physical Therapy Plan Next Visit Focus/Plan Next Note Type Treatment Note Next Visit Plan Complete L&I forms with pt. Progress balance (R SLS) and ankle strengthening. Issue HEP of standing balance ex's. Strengthen UE and initiate lifting body mechanics training as tolerated. Continue per PT POC: core strengthening, R LE DF activities, flexibility and improve R LE DF to support LS stabilization. Recommended L SIJ release distraction as needed for LB/SIJ pain relief.
--- NOTE | 2019-12-01 12:12 | PT.OTN ---
Current Diagnoses Other intervertebral disc degeneration, lumbosacral region (12/01/19) Strain of muscle, fascia and tendon of lower back, initial encounter (12/01/19) Physical Therapy Treatment Note PT-OP-A Visit Information Start: 10/20/19 16:23 Freq: Status: Active Protocol: Document 12/01/19 11:17 HH (Rec: 12/01/19 12:11 [id number]) Out-Patient Physical Therapy Visit Information Visit Information Visit Type Treatment Note Visit Start Time 11:21 Visit Stop Time 12:03 Total Visit Minutes 42 Visit Number 12/18 Number of SENSOR OPERATOR Visits 0 PT-OP-B Current Condition Start: 10/20/19 16:23 Freq: Status: Active Protocol: Document 10/20/19 16:24 HH (Rec: 10/20/19 17:09 [email or web address]) Current Condition History of Current Condition Onset Date mid September Current Complaints L sided back pain, R foot drop , difficulty in walking History of Current Condition Pt is a 54 yo male here for new onset of L sided back pain started from mid September. He stated he felt soreness at his low back one night after his work but he was unable to get out of bed the next morning. He was sure that it was nontraumatic and his sharp pain has gone but he is still having consistent achy pain. His pain is located in left low back wrapping around his waist without radiation down to his legs. Pain increases with bending over, twisting, getting up bend down and improves with resting in bed. 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 He also has history of kidney stone but it was resolved. Denies hematuria or indication for UTI/pyelonephritis. Lumbar MRI test that was done in March 2019 indicates patient has degenerative disc disease most prominent at L4- L5 level worse in left side and asymmetric posterior disc bulge/protrusion and facet osteoarthritis. Also, there is mild spinal stenosis present on the L4 nerve roots. Pt also has been having R foot drop since this March and his orthopedist Dr. Raphael believes he has possible nerve impingement below his R knee. Pt will have a consult with neurologist at the end of October. Prior Treatments and Tests 10/03 lumbar Xray 1. Transitional anatomy with sacralization of L5. 2. Mild degenerative disc and facet disease. lumbar MRI 03/21/19 The degenerative disc disease and facet osteoarthritis along the lumbosacral spine is relatively mild, focally is most prominent at L4-L5 with mild interval worsening of the degenerative changes at this level, left greater than right, to include increase asymmetric left greater than right posterior disc bulge/ protrusion and mild interval worsening of asymmetric left greater than right facet osteoarthritis. Significant spinal stenosis is present but mild at the left posterolateral recess, but foraminal stenosis has appreciably worsened with expected left greater than right impingement on the L4 nerve roots as a result. Treatment Goals Patient/Caregiver Goals 1. to be able to return to work and lift pallets without back discomfort 2. 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 ( up to 50lbs) Personal Factors Other Personal Factors That May Effect pt has depression and Therapy/Recovery currently taking Zoloft. PT-OP-C Subjective Start: 10/20/19 16:23 Freq: Status: Active Protocol: Document 12/01/19 11:17 HH (Rec: 12/01/19 12:11 HH [id number]) OP-PT Subjective Patient Comments Patient Comments I feel tight and sore at my butt area but im working on my exercises Patient Reported Progress Same PT-OP-D Balance Start: 10/20/19 16:23 Freq: Status: Active Protocol: Document 11/17/19 14:29 LRN (Rec: 11/17/19 15:09 LRN [id number]) Balance Tests Single Limb Standing Single Limb- Right 19 Single Limb- Left 60 PT-OP-G Mobility & Gait Start: 10/20/19 16:23 Freq: Status: Active Protocol: Document 10/20/19 16:24 HH (Rec: 10/20/19 17:09 HH [email or web address]) OP Gait Assessment Comments Gait Comments pt has mild steppage gait on R side with limited active DF PT-OP-H Neuro Start: 10/20/19 16:23 Freq: Status: Active Protocol: Document 10/20/19 16:24 HH (Rec: 10/20/19 17:09 HH [email or web address]) Sensation Evaluation Location Details Right Foot Light Touch Impaired Comments Summary Comments tingling and numbness sensation at top of his R foot Deep Tendon Reflex & Clonus Assessment Deep Tendon Reflex Bilateral Achilles Deep Tendon Reflex 2+ Normal Bilateral Patellar Deep Tendon Reflex 2+ Normal PT-OP-K Range of Motion Start: 10/20/19 16:23 Freq: Status: Active Protocol: Document 11/25/19 09:03 LRN (Rec: 11/25/19 09:55 LRN [id number]) Hip Goniometric Range of Motion Hip Right Passive Testing Position Supine Straight Leg Raise 40 Left Passive Testing Position Supine Straight Leg Raise 45 PT-OP-L Special Tests Start: 10/20/19 16:23 Freq: Status: Active Protocol: Document 10/20/19 16:24 HH (Rec: 10/20/19 17:09 HH [email or web address]) Special Tests Lumbar Spine Special Tests Prone Instability Test Test Results +ve L Straight Leg Raise Test Results +ve L Comments increase tension on L at 70 degrees. Slump Test Results +ve L Comments reports of back pain with cervical flexion and L knee extension PT-OP-M Strength Start: 10/20/19 16:23 Freq: Status: Active Protocol: Document 10/20/19 16:24 HH (Rec: 10/20/19 17:09 HH [email or web address]) Hip Strength Hip Manual Muscle Testing Right Flexion (L2) 4+ Good+ Extension (S1) 4+ Good+ Abduction 4+ Good+ Adduction 4+ Good+ Left Flexion (L2) 4- Good- Extension (S1) 4 Good Abduction 4- Good- Adduction 4 Good Knee Strength Knee Manual Muscle Testing Right Flexion (S2) 3+ Fair+ Extension (L3) 4- Good- Left Flexion (S2) 4 Good Extension (L3) 4 Good Ankle/Foot Strength Ankle and Foot Manual Muscle Testing Right Dorsiflexion (L4) 3- Fair- Plantarflexion (S1) 4 Good Inversion 4- Good- Eversion (S1) 4- Good- Left Dorsiflexion (L4) 5 Normal Plantarflexion (S1) 5 Normal Inversion 5 Normal Eversion (S1) 5 Normal PT-OP-Q Treatments Start: 10/20/19 16:23 Freq: Status: Active Protocol: Document 12/01/19 11:17 HH (Rec: 12/01/19 12:11 HH [id number]) Cardio Equipment Bicycle (Upright) Duration (Minutes) 8 Resistance 8 Seat Position 5 Other I/S pt to work somewhat hard, but not into pain. Therapeutic Exercises Supine Exercises supine ankle DF, EV, IV, PF Supine Exercise Name against PT resistance Side right Reps/Minutes 5 sec hold x4 Comments noticed R IV is weaker message ball Supine Exercise Name on L piriformis Side left Comments for HEP Pirifromis stretch Supine Exercise Name FADDIR position Side right Reps/Minutes 30 secs hold Comments L felt more than R, muscle guarding noted. Bridges Supine Exercise Name with yellow band on knees Side bilateral Reps/Minutes 8 x 2 Comments cues on external rotated hip Hamstring/LE neural stretch Supine Exercise Name Hamstring/LE neural stretch Side bilateral Reps/Minutes Hold 10, f/b active DF x 10 - 3 sets Comments Manual ankle DF given to L LE. Sidelying Exercises clam shell Sidelying Exercise Name cues on preventing lumbar rotation. Side bilateral Reps/Minutes 10 x2 Comments for HEP, pain and weakness noted Standing Exercises SLS ex Standing Exercise Name slider Side bilateral Reps/Minutes 10 x2 Comments lateral slide Manual Therapy Treatment Soft Tissue Mobilization L piriformis Mobilization Type Sustained Pressure,Trigger Point Release Intensity/Depth Moderate Body Position Sidelying Comments significant tenderness noted Joint Mobilizations hip distraction Joint R hip joint Grade III Body Position Supine Reps/Duration 10 sec x 6 Neuro Re-Education Treatment Balance Activities uneven surface 1 Details blue and yellow disc Reps/Duration 20 s x 3 SLS Details blue foam, then yellow disc Reps/Duration 10 s x 4 Comments L better performance than R L=10s on yellow disc R= 3 s on yellow disc PT-OP-R Modalities Start: 10/20/19 16:23 Freq: Status: Active Protocol: Document 11/08/19 09:46 SP (Rec: 11/08/19 10:35 SP [id number]) Electric Stimulation Electric Stimulation NMES (malagasy) Body Location R ant tib Duration (Minutes) 8 Intensity 50-55 Contraction Type Normal Cycle 10/10 Ramp 2.0 Patient Position Sitting Comments instructed pt to perform active DF during ON time. PT-OP-T Assessment and Plan Start: 10/20/19 16:23 Freq: Status: Active Protocol: Document 12/01/19 11:17 HH (Rec: 12/01/19 12:11 HH [id number]) Physical Therapy Assessment Goals return to work Impairment pt is unable to lift now Preconstruction Manager Goal (LTG) Pt will be able to return to lift heavy boxes and pallets up to 50 lbs again with safe bodymechanics LTG Duration 10 weeks (11/25/19: Pt able to lift 1# without pain) pain Impairment pt has constant pain 5/10 at L low back Short Term Goal (STG) Pt will have pain no more than 3 for bending over, twisting, getting up bend down STG Duration 5 weeks Preconstruction Manager Goal (LTG) Pt will have pain no more than 2 for bending over and lifting in order for him to start working again. LTG Duration 10 weeks neurological signs Impairment +ve for slump and SLR test Preconstruction Manager Goal (LTG) pt will be symptoms free for both slump and SLR special test to decrease neural tension for bend over activities. (11/25/19: PSLR: 40 R, 45 L) LTG Duration 8 weeks (11/25/19: NOT MET: + PSLR bilaterally) Oswestry Impairment pt scores 50 on Oswestry Short Term Goal (STG) pt will score 39 or lower on Oswestry questionnaire to improve his quality of life STG Duration 5 weeks (11/25/19: No change in score but changes in different areas) Intermediate Goal (LTG) pt will score 19 or lower on Oswestry questionnaire to improve his quality of life LTG Duration 10 weeks Assessment Summary Assessment pt anca session well. Came in with tightness and pain at L hip 5/10. After manual therapy , mobility and strengthening ex 10. Pt has improved R SLS stability as well. Physical Therapy Plan Frequency and Duration Frequency of Treatment 2x/Week Duration of Treatment 8 weeks Plan of Care Start Date 10/20/19 Plan of Care End Date 01/03/20 Next Visit Focus/Plan Next Note Type Treatment Note Next Visit Plan Progress balance (R SLS) and ankle strengthening. Issue HEP of standing balance ex's. Strengthen UE and initiate lifting body mechanics training as tolerated. Continue per PT POC: core strengthening, R LE DF activities, flexibility and improve R LE DF to support LS stabilization. Recommended L SIJ release distraction as needed for LB/SIJ pain relief.
--- NOTE | 2019-12-05 10:58 | PT.OTN ---
Current Diagnoses Other intervertebral disc degeneration, lumbosacral region (12/05/19) Strain of muscle, fascia and tendon of lower back, initial encounter (12/05/19) Physical Therapy Treatment Note PT-OP-A Visit Information Start: 10/20/19 16:23 Freq: Status: Active Protocol: Document 12/05/19 09:50 HH (Rec: 12/05/19 10:57 HH [id number]) Out-Patient Physical Therapy Visit Information Visit Information Visit Type Progress Note Visit Start Time 09:47 Visit Stop Time 10:30 Total Visit Minutes 43 Visit Number 11/12 Number of FILENET ARCHITECT Visits 0 PT-OP-B Current Condition Start: 10/20/19 16:23 Freq: Status: Active Protocol: Document 10/20/19 16:24 HH (Rec: 10/20/19 17:09 HH [email or web address]) Current Condition History of Current Condition Onset Date mid September Current Complaints L sided back pain, R foot drop , difficulty in walking History of Current Condition Pt is a 54 yo male here for new onset of L sided back pain started from mid September. He stated he felt soreness at his low back one night after his work but he was unable to get out of bed the next morning. He was sure that it was nontraumatic and his sharp pain has gone but he is still having consistent achy pain. His pain is located in left low back wrapping around his waist without radiation down to his legs. Pain increases with bending over, twisting, getting up bend down and improves with resting in bed. 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 He also has history of kidney stone but it was resolved. Denies hematuria or indication for UTI/pyelonephritis. Lumbar MRI test that was done in March 2019 indicates patient has degenerative disc disease most prominent at L4- L5 level worse in left side and asymmetric posterior disc bulge/protrusion and facet osteoarthritis. Also, there is mild spinal stenosis present on the L4 nerve roots. Pt also has been having R foot drop since this March and his orthopedist Dr. Raphael believes he has possible nerve impingement below his R knee. Pt will have a consult with neurologist at the end of October. Prior Treatments and Tests 10/03 lumbar Xray 1. Transitional anatomy with sacralization of L5. 2. Mild degenerative disc and facet disease. lumbar MRI 03/21/19 The degenerative disc disease and facet osteoarthritis along the lumbosacral spine is relatively mild, focally is most prominent at L4-L5 with mild interval worsening of the degenerative changes at this level, left greater than right, to include increase asymmetric left greater than right posterior disc bulge/ protrusion and mild interval worsening of asymmetric left greater than right facet osteoarthritis. Significant spinal stenosis is present but mild at the left posterolateral recess, but foraminal stenosis has appreciably worsened with expected left greater than right impingement on the L4 nerve roots as a result. Treatment Goals Patient/Caregiver Goals 1. to be able to return to work and lift pallets without back discomfort 2. 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 ( up to 50lbs) Personal Factors Other Personal Factors That May Effect pt has depression and Therapy/Recovery currently taking Zoloft. PT-OP-C Subjective Start: 10/20/19 16:23 Freq: Status: Active Protocol: Document 12/05/19 09:50 HH (Rec: 12/05/19 10:57 HH [id number]) OP-PT Subjective Patient Comments Patient Comments I felt more flexible after stretching but my hip does get sore after driving for awhile . Patient Reported Progress Improving PT-OP-D Balance Start: 10/20/19 16:23 Freq: Status: Active Protocol: Document 11/17/19 14:29 LRN (Rec: 11/17/19 15:09 LRN [id number]) Balance Tests Single Limb Standing Single Limb- Right 19 Single Limb- Left 60 PT-OP-G Mobility & Gait Start: 10/20/19 16:23 Freq: Status: Active Protocol: Document 10/20/19 16:24 HH (Rec: 10/20/19 17:09 HH [email or web address]) OP Gait Assessment Comments Gait Comments pt has mild steppage gait on R side with limited active DF PT-OP-H Neuro Start: 10/20/19 16:23 Freq: Status: Active Protocol: Document 10/20/19 16:24 HH (Rec: 10/20/19 17:09 HH [email or web address]) Sensation Evaluation Location Details Right Foot Light Touch Impaired Comments Summary Comments tingling and numbness sensation at top of his R foot Deep Tendon Reflex & Clonus Assessment Deep Tendon Reflex Bilateral Achilles Deep Tendon Reflex 2+ Normal Bilateral Patellar Deep Tendon Reflex 2+ Normal PT-OP-K Range of Motion Start: 10/20/19 16:23 Freq: Status: Active Protocol: Document 11/25/19 09:03 LRN (Rec: 11/25/19 09:55 LRN [id number]) Hip Goniometric Range of Motion Hip Right Passive Testing Position Supine Straight Leg Raise 40 Left Passive Testing Position Supine Straight Leg Raise 45 PT-OP-L Special Tests Start: 10/20/19 16:23 Freq: Status: Active Protocol: Document 10/20/19 16:24 HH (Rec: 10/20/19 17:09 HH [email or web address]) Special Tests Lumbar Spine Special Tests Prone Instability Test Test Results +ve L Straight Leg Raise Test Results +ve L Comments increase tension on L at 70 degrees. Slump Test Results +ve L Comments reports of back pain with cervical flexion and L knee extension PT-OP-M Strength Start: 10/20/19 16:23 Freq: Status: Active Protocol: Document 10/20/19 16:24 HH (Rec: 10/20/19 17:09 HH [email or web address]) Hip Strength Hip Manual Muscle Testing Right Flexion (L2) 4+ Good+ Extension (S1) 4+ Good+ Abduction 4+ Good+ Adduction 4+ Good+ Left Flexion (L2) 4- Good- Extension (S1) 4 Good Abduction 4- Good- Adduction 4 Good Knee Strength Knee Manual Muscle Testing Right Flexion (S2) 3+ Fair+ Extension (L3) 4- Good- Left Flexion (S2) 4 Good Extension (L3) 4 Good Ankle/Foot Strength Ankle and Foot Manual Muscle Testing Right Dorsiflexion (L4) 3- Fair- Plantarflexion (S1) 4 Good Inversion 4- Good- Eversion (S1) 4- Good- Left Dorsiflexion (L4) 5 Normal Plantarflexion (S1) 5 Normal Inversion 5 Normal Eversion (S1) 5 Normal PT-OP-Q Treatments Start: 10/20/19 16:23 Freq: Status: Active Protocol: Document 12/05/19 09:50 HH (Rec: 12/05/19 10:57 HH [id number]) Gym Equipment Shuttle Rebound SL squat Reps/Duration #75 Comments slight discomfort at L buttock for the last few reps. He does report L leg strength is 30 % less than R. Therapeutic Exercises Supine Exercises Pirifromis stretch Supine Exercise Name FADDIR position Side right Reps/Minutes 30 secs hold Comments L felt more than R, muscle guarding noted. Hamstring/LE neural stretch Supine Exercise Name Hamstring/LE neural stretch Side bilateral Reps/Minutes Hold 10, f/b active DF x 10 - 3 sets Comments Manual ankle DF given to L LE. Sidelying Exercises clam shell Sidelying Exercise Name cues on preventing lumbar rotation. Side bilateral Reps/Minutes 10 x2 Comments weakness noted Standing Exercises step up Standing Exercise Name 12 inch step Side bilateral Reps/Minutes 10 x2 SLS ex Standing Exercise Name slider Side bilateral Reps/Minutes 10 x2 Comments lateral slide Manual Therapy Treatment Soft Tissue Mobilization L piriformis Mobilization Type Sustained Pressure,Trigger Point Release Intensity/Depth Moderate Body Position Sidelying Comments significant tenderness noted Joint Mobilizations hip distraction Joint R hip joint Grade III Body Position Supine Reps/Duration 10 sec x 6 Neuro Re-Education Treatment Balance Activities uneven surface 1 Details blue and yellow disc Reps/Duration 20 s x 3 SLS Details blue foam, then yellow disc Reps/Duration 10 s x 4 Comments L better performance than R PT-OP-R Modalities Start: 10/20/19 16:23 Freq: Status: Active Protocol: Document 11/08/19 09:46 SP (Rec: 11/08/19 10:35 SP [id number]) Electric Stimulation Electric Stimulation NMES ([place] island[place]) Body Location R ant tib Duration (Minutes) 8 Intensity 50-55 Contraction Type Normal Cycle 10/10 Ramp 2.0 Patient Position Sitting Comments instructed pt to perform active DF during ON time. PT-OP-T Assessment and Plan Start: 10/20/19 16:23 Freq: Status: Active Protocol: Document 12/05/19 09:50 HH (Rec: 12/05/19 10:57 HH [id number]) Physical Therapy Assessment Goals return to work Impairment pt is unable to lift now [employer] Goal (LTG) Pt will be able to return to lift heavy boxes and pallets up to 50 lbs again with safe bodymechanics LTG Duration 10 weeks (11/25/19: Pt able to lift 1# without pain) pain Impairment pt has constant pain 5/10 at L low back Short Term Goal (STG) Pt will have pain no more than 3 for bending over, twisting, getting up bend down STG Duration 5 weeks [employer] Goal (LTG) Pt will have pain no more than 2 for bending over and lifting in order for him to start working again. LTG Duration 10 weeks Oswestry Impairment pt scores 50 on Oswestry Short Term Goal (STG) pt will score 39 or lower on Oswestry questionnaire to improve his quality of life STG Duration 5 weeks (11/25/19: No change in score but changes in different areas) [employer] Goal (LTG) pt will score 19 or lower on Oswestry questionnaire to improve his quality of life LTG Duration 10 weeks Assessment Summary Assessment Updates: there are protest/ abeyance flags on the claim and pt is scheduled for [facility] on 12/26/19. Will have to cancel remaining PT appointments at this point until further notice. However, pt reports his L hip /back can tolerate more before it starts hurting. Added step up ex to his HEP and cont recommend to follow HEP rountine with focus on R foot balance, L hip strengthening and stability. Will contact pt via phone in 2 weeks for progress checking. Physical Therapy Plan Hold Physical Therapy Reason For Hold see A&P Next Visit Focus/Plan Next Note Type Progress Note
--- NOTE | 2020-02-09 11:59 | PT.OPDS ---
Current Diagnoses Other intervertebral disc degeneration, lumbosacral region (12/05/19) Strain of muscle, fascia and tendon of lower back, initial encounter (12/05/19) Visit Care Team Role Provider Type Liliya Young MD Attending Provider Physician Primary Care Provider Referring Provider Specialty: Family Practice Address: [address] [place] [address], [facility] Email: [email or web address] Visit Number Visit Number 01/18 PT-OP-T Assessment and Plan Start: 10/20/19 16:23 Freq: Status: Active Protocol: Document 02/09/20 11:58 HH (Rec: 02/09/20 11:59 HH [email or web address]) Physical Therapy Plan Discharge Physical Therapy Discharge Reasons No Longer Attending PT Discharge Comments Pt's L&I denied his claim and no further PT session for pt. D/c pt from PT today.
== END 2020-02-24 14:28 ==
LOC: PHYS 09:45
PROVIDERS: PCP Family Medicine; Referring Provider Family Medicine; Visit Provider Family Medicine
DX: S39.012A Strain of muscle, fascia and tendon of lower back, initial encounter (principal); M51.37 Other intervertebral disc degeneration, lumbosacral region
CPT/HCPCS: 97014; 97110; 97112; 97140; 97162; G0283

== ENCOUNTER 2020-03-13 18:37 | Observation (INO) | payer OTHER, MEDICAID, SELFPAY ==
[2020-03-13 18:40] VITALS: BP 178/74; PULSE 55; RESP 24; O2SAT 97
[2020-03-13 19:00] LABS: Add Manual Diff / Slide Review NO; Basophils Absolute Auto 200 /uL (0-100); Basophils Percent Auto 0.9 % (0-2); Eosinophils Absolute Auto 100 /uL (0-450); Eosinophils Percent Auto 0.6 % (2-4); Hematocrit 46.3 % (41-53); Hemoglobin 15.6 g/dL (13.5-17.5); Lymphocytes Absolute Auto 2900 /uL (1100-4500); Lymphocytes Percent Auto 15.3 % (25-40); Mean Corpuscular HGB Conc 33.6 % (30-36); Mean Corpuscular Hemoglobin 32.7 PG (26-34); Mean Corpuscular Volume 97.5 fL (80-100); Monocytes Absolute Auto 1000 /uL (0-900); Monocytes Percent Auto 5.6 % (3-14); Neutrophils Absolute Auto 14500 /uL (1500-7000); Neutrophils Percent Auto 77.6 % (50-75); Platelet Count 302 X10^3/uL (150-400); Red Blood Cell Count 4.75 X10^6/uL (4.5-5.9); Red Cell Distribution Width 13.2 % (11.6-14.8); White Blood Cell Count 18.7 X10^3/uL (4.5-11.0)
[2020-03-13 19:10] LABS: INR 0.9 (0.9-1.3); Prothrombin Time 10.8 SECONDS (10.1-12.7)
[2020-03-13 19:12] LABS: PTT Partial Thromboplastin Tim 29 SECONDS (26.4-36.2)
[2020-03-13 19:15] LABS: Alanine Aminotransferase 21 IU/L (<50); Albumin 4.2 g/dL (3.5-5.0); Albumin Globulin Ratio 1.4 (1.0-2.8); Alkaline Phosphatase 67 U/L (38-126); Aspartate Aminotransferase 22 IU/L (17-59); BUN Creatinine Ratio 21.8 (6-22); Bilirubin Total 0.7 mg/dL (0.2-1.3); Blood Urea Nitrogen 19 mg/dL (9-20); Carbon Dioxide 29 mmol/L (22-32); Chloride 106 mmol/L (98-107); Estimated Glomerular Filt Rate > 60.0 mL/min (>60); Globulin 2.9 g/dL (1.7-4.1); Glucose 123 mg/dL (70-100); HEMOLYSIS < 15 (0-50); Lipase 79 U/L (23-300); Potassium 3.7 mmol/L (3.4-5.1); Sodium 138 mmol/L (137-145); Total Protein 7.1 g/dL (6.3-8.2)
--- NOTE | 2020-03-13 20:00 | ED.ABDPAIN ---
HPI - Abdominal Pain General Chief Complaint: Abdominal Pain Stated Complaint: CRAMPS THROWING UP Time Seen by Provider: 03/13/20 19:33 Source: patient Mode of arrival: Ambulatory History of Present Illness HPI narrative: Patient is a 54-year-old male with history of depression presenting with abdominal pain and rib pain ongoing throughout the day. He said he woke up this morning and felt like he had upper epigastric and rib pain ongoing all day. He has been dry heaving and vomiting throughout the day. He denies any fever or chills. He feels like it is constant nonradiating. MD complaint: abdominal pain Pain Consistency: constant Location: RUQ and epigastric Quality: sharp Radiation: none Related Data Home Medications Medication Instructions Recorded Confirmed citalopram 10 mg tablet 10 mg PO DAILY 04/30/18 11/18/18 tamsulosin 0.4 mg capsule 0.4 mg PO DAILY 11/18/18 11/18/18 ibuprofen 200 mg tablet 600 mg PO BID PRN tab 11/23/18 11/23/18 Previous Rx's Medication Instructions Recorded cyclobenzaprine 10 mg PO BID PRN #14 tab 09/24/19 lidocaine 1 patch TOP DAILY #30 each 09/24/19 Allergies Allergy/AdvReac Type Severity Reaction Status Date / Time ciprofloxacin [From Cipro] Allergy Intermediate facial Verified 09/24/19 10:36 redness and burning Review of Systems Review of Systems Narrative: GENERAL: Denies chills, fatigue, malaise, fever, sweats, travel HEENT: Denies sinus pain, ear pain, sore throat, difficulty swallowing, neck pain RESPIRATORY: Denies dyspnea, cough, wheezing, hemoptysis, sputum. CARDIOVASCULAR: Denies chest pain, palpitations, orthopnea, edema GASTROINTESTINAL: See HPI : Denies dysuria, frequency, incontinence, hematuria, urinary retention, flank pain. MUSCULOSKELETAL: Denies weakness, joint pain, or bony pain SKIN: No rash, no erythema, no pruritus NEUROLOGIC: Denies weakness, dizziness, headache, numbness, change in speech, confusion PSYCHIATRIC: No concerning psychosocial issues. 12 point review of systems is negative except for those stated above and HPI Patient History Medical History (Updated 03/13/20 @ 21:26 by Мария Fitch DO) Back pain Kidney stone Radiculopathy of leg Surgical History (Updated 03/13/20 @ 20:05 by Мария Fitch DO) H/O lithotripsy Status post splenectomy Social History household members: significant other and family Smoking Status: Current every day smoker alcohol intake: current Smoking Status: Current every day smoker alcohol intake frequency: 3 or more drinks per day Substance Use Type: does not use Exam Initial Vital Signs Initial Vital Signs: Vital Signs Pulse Rate 55 L 03/13/20 18:40 Respiratory Rate 24 03/13/20 18:40 Blood Pressure 178/74 H 03/13/20 18:40 Pulse Oximetry 97 03/13/20 18:40 GENERAL: Well-appearing, well-nourished and in no acute distress. HEENT: Head atraumatic,EOMI, pupils reactive, face symmetric, moist mucous membranes CARDIOVASCULAR: Regular rate and rhythm without murmurs, rubs or gallops. RESPIRATORY: Breath sounds equal bilaterally, no wheezes rales or rhonchi. ABDOMEN: Soft, tender right upper quadrant positive Reyna sign no guarding or rebound scar noted EXTREMITIES: Normal range of motion, no clubbing or edema. Neurovascularly intact NEUROLOGICAL: Alert and oriented x4.Normal gait and speech. Cranial nerves II through XII grossly intact. SKIN: Warm, dry, no laceration, no petechiae, no rashes or lesions. Course Orders Ordered: ED Orders 03/13/20 18:45 EKG-12 Lead Stat 03/13/20 18:52 Complete Blood Count AUTO DIFF Stat Comprehensive Metabolic Panel Stat Lipase Stat Partial Thromboplastin Time Stat Prothrombin Time INR Stat Troponin & CK Cardiac Panel Stat 03/13/20 20:00 US abdomen limited Stat 03/13/20 20:04 CT abdomen pelvis w con Stat Sodium Chloride (Normal Saline 0.9%) 1,000 mls @ 125 mls/hr IV CONT JEWELS Morphine Sulfate (Morphine 2 Mg/Ml Inj) 2 mg IV Q4HR PRN PRN Reason: Pain, Moderate (4-6) Ondansetron HCl (Ondansetron 4 Mg/2 Ml Inj) 4 mg IV Q4HR PRN PRN Reason: Nausea And Vomiting Discontinued Medications Sodium Chloride (Normal Saline 0.9%) 1,000 mls @ 1,000 mls/hr IV BOLUS ONE Stop: 03/13/20 20:24 Last Infusion: 03/13/20 21:48 Dose: 0 mls/hr Documented by: Admin: 03/13/20 20:22 Dose: 1,000 mls/hr Documented by: RICHARD Cefotetan Disodium/Dextrose (Cefotan) 2 gm in 50 mls @ 100 mls/hr IV NOW ONE Stop: 03/13/20 21:55 Last Admin: 03/13/20 21:46 Dose: 100 mls/hr Documented by: RICHARD Ketorolac Tromethamine (Ketorolac 60 Mg/2 Ml Vial) 30 mg IV NOW ONE Stop: 03/13/20 20:03 Last Admin: 03/13/20 20:22 Dose: 30 mg Documented by: RICHARD Ondansetron HCl (Ondansetron 4 Mg/2 Ml Inj) 4 mg IV NOW ONE Stop: 03/13/20 19:26 Last Admin: 03/13/20 20:21 Dose: 4 mg Documented by: RICHARD Pantoprazole Sodium (Pantoprazole 40 Mg Vial) 40 mg IV NOW ONE Stop: 03/13/20 19:27 Last Admin: 03/13/20 20:22 Dose: 40 mg Documented by: RICHARD Vital Signs Vital signs: Vital Signs - 8 hr 03/13/20 18:40 03/13/20 21:05 Temperature 98.6 F Pulse Rate 55 L 56 L Respiratory Rate 24 18 Blood Pressure 178/74 H 116/59 L Pulse Oximetry 97 96 MDM - Abdominal Pain Lab Data Attestation: I reviewed the patient's lab results. Result diagrams: 03/13/20 18:52 03/13/20 18:52 Labs: Lab Results 03/13/20 03/13/20 03/13/20 Range/Units 18:52 18:52 18:52 WBC 18.7 H (4.5-11.0) X10^3/uL RBC 4.75 (4.5-5.9) X10^6/uL Hgb 15.6 (13.5-17.5) g/dL Hct 46.3 (41-53) % MCV 97.5 (80-100) fL MCH 32.7 (26-34) PG MCHC 33.6 (30-36) % RDW 13.2 (11.6-14.8) % Plt Count 302 (150-400) X10^3/uL Neut % (Auto) 77.6 H (50-75) % Lymph % (Auto) 15.3 L (25-40) % [place] % (Auto) 5.6 (3-14) % Eos % (Auto) 0.6 L (2-4) % Baso % (Auto) 0.9 (0-2) % Neut # (Auto) 04983 H (8512-4027) /uL Lymph # (Auto) 2900 (3328-2261) /uL [place] # (Auto) 1000 H (0-900) /uL Eos # (Auto) 100 (0-450) /uL Baso # (Auto) 200 H (0-100) /uL PT 10.8 (10.1-12.7) SECONDS INR 0.9 (0.9-1.3) APTT 29 (26.4-36.2) SECONDS Sodium 138 (137-145) mmol/L Potassium 3.7 (3.4-5.1) mmol/L Chloride 106 (98-107) mmol/L Carbon Dioxide 29 (22-32) mmol/L BUN 19 (9-20) mg/dL Creatinine 0.87 (0.66-1.25) mg/dL Estimated GFR > 60.0 (>60) mL/min BUN/Creatinine Ratio 21.8 (6-22) Glucose 123 H (70-100) mg/dL Calcium 10.0 (8.4-10.2) mg/dL Total Bilirubin 0.7 (0.2-1.3) mg/dL AST 22 (17-59) IU/L ALT 21 (<50) IU/L Alkaline Phosphatase 67 (38-126) U/L Total Creatine Kinase (55-170) U/L CK-MB (CK-2) CK-MB (CK-2) Rel Index Troponin I (0.01-0.034) ng/mL Total Protein 7.1 (6.3-8.2) g/dL Albumin 4.2 (3.5-5.0) g/dL Globulin 2.9 (1.7-4.1) g/dL Albumin/Globulin Ratio 1.4 (1.0-2.8) Lipase 79 (23-300) U/L 03/13/20 Range/Units 18:52 WBC (4.5-11.0) X10^3/uL RBC (4.5-5.9) X10^6/uL Hgb (13.5-17.5) g/dL Hct (41-53) % MCV (80-100) fL MCH (26-34) PG MCHC (30-36) % RDW (11.6-14.8) % Plt Count (150-400) X10^3/uL Neut % (Auto) (50-75) % Lymph % (Auto) (25-40) % [place] % (Auto) (3-14) % Eos % (Auto) (2-4) % Baso % (Auto) (0-2) % Neut # (Auto) (4121-7582) /uL Lymph # (Auto) (5146-9235) /uL [place] # (Auto) (0-900) /uL Eos # (Auto) (0-450) /uL Baso # (Auto) (0-100) /uL PT (10.1-12.7) SECONDS INR (0.9-1.3) APTT (26.4-36.2) SECONDS Sodium (137-145) mmol/L Potassium (3.4-5.1) mmol/L Chloride (98-107) mmol/L Carbon Dioxide (22-32) mmol/L BUN (9-20) mg/dL Creatinine (0.66-1.25) mg/dL Estimated GFR (>60) mL/min BUN/Creatinine Ratio (6-22) Glucose (70-100) mg/dL Calcium (8.4-10.2) mg/dL Total Bilirubin (0.2-1.3) mg/dL AST (17-59) IU/L ALT (<50) IU/L Alkaline Phosphatase (38-126) U/L Total Creatine Kinase 59 (55-170) U/L CK-MB (CK-2) TNP CK-MB (CK-2) Rel Index TNP Troponin I < 0.012 (0.01-0.034) ng/mL Total Protein (6.3-8.2) g/dL Albumin (3.5-5.0) g/dL Globulin (1.7-4.1) g/dL Albumin/Globulin Ratio (1.0-2.8) Lipase (23-300) U/L Imaging Data CT scan - abdomen/pelvis: Radiologist's Impression: PROCEDURE: CT ABDOMEN PELVIS W CON INDICATIONS: vomiting TECHNIQUE: After the administration of intravenous contrast, 5 mm thick sections acquired from the diaphragm to the symphysis. 5 mm coronal and sagittal reformats were acquired. For radiation dose reduction, the following was used: automated exposure control, adjustment of mA and/or kV according to patient size. COMPARISON: [facility], CT, ABDOMEN/PELVIS WITH CONTRAST, 12/27/2015, 9:57. FINDINGS: Image quality: Excellent. ABDOMEN: Lung bases: Lung bases are clear. Heart size is normal. Solid organs: Liver is normal in size and enhancement. Gallbladder demonstrates mild wall thickening. Biliary system is non dilated. Pancreas enhances normally. Status post splenectomy. The left kidney has multiple renal cysts measuring up to 4 cm. Peritoneum and bowel: Bowel loops demonstrate normal wall thickness and caliber. No free fluid or air. The appendix is normal. Nodes and vessels: No retroperitoneal or mesenteric adenopathy by size criteria. Aorta has atherosclerotic calcifications. Miscellaneous: No ventral hernias. PELVIS: Genitourinary: Bladder wall thickness is normal. Miscellaneous: Fat containing right inguinal hernia. Bones: No suspicious bony lesions. No vertebral body compression fractures. IMPRESSION: 1. Gallbladder wall thickening and distention, nonspecific. No gallstones. 2. Otherwise no acute abdominal or pelvic abnormality. 3. Right inguinal hernia. 4. Simple left renal cysts. 5. Status post splenectomy. Dictated by: Wilfred Woodward M.D. on 03/13/2020 at 20:32 Approved by: Wilfred Woodward M.D. on 03/13/2020 at 20:37 US - abdomen: Radiologist's Impression: PROCEDURE: US ABDOMEN LIMITED INDICATIONS: RIGHT UPPER QUADRANT PAIN TECHNIQUE: Real-time scanning was performed of the abdominal and retroperitoneal organs, with image documentation. COMPARISON: None. FINDINGS: Liver: The liver is normal in size. Increased hepatic echogenicity is consistent with hepatic steatosis. Gallbladder: There is gallbladder wall thickening and pericholecystic fluid. Gallbladder wall sludge and a 1.9 cm stone in the neck of the gallbladder is seen. Biliary ducts: Intrahepatic bile ducts are non-dilated. Extrahepatic bile duct caliber measures 5.8 mm. Normal is 6-7 mm or less in diameter, or 10 mm or less post-cholecystectomy. Pancreas: Visualized portions of the pancreas are sonographically normal. IMPRESSION: 1. Cholelithiasis with sonographic findings consistent with cholecystitis. 2. Hepatic steatosis. Dictated by: Wilfred Woodward M.D. on 03/13/2020 at 21:04 ECG Data Attestation: I personally reviewed and interpreted this ECG as follows: Prior ECG tracings: not available for review Interpretation: Normal sinus rhythm rate 51 p.r. interval 132 RS 98 QTC 405 artifact noted MDM Narrative Medical decision making narrative: Patient is found have leukocytosis of 18,000 but no fever. Bilirubin and liver enzymes are within normal limits. Ultrasound and CT do show gallstone of 1.9 cm lodged in the neck. Along with some thickening. Consistent with acute cholecystitis. 21:25 Dr. Torres accepts. Cefotetan 2 g Discharge Plan Departure Patient Disposition: Admitted as Observation Clinical Impression: Acute calculous cholecystitis Admit Date/Time: 03/13/20 21:36 Admit Provider: Quentin Torres
--- NOTE | 2020-03-13 20:04 | DI.CT.S_ITS ---
PROCEDURE: CT ABDOMEN PELVIS W CON INDICATIONS: vomiting TECHNIQUE: After the administration of intravenous contrast, 5 mm thick sections acquired from the diaphragm to the symphysis. 5 mm coronal and sagittal reformats were acquired. For radiation dose reduction, the following was used: automated exposure control, adjustment of mA and/or kV according to patient size. COMPARISON: [facility], CT, ABDOMEN/PELVIS WITH CONTRAST, 12/27/2015, 9:57. FINDINGS: Image quality: Excellent. ABDOMEN: Lung bases: Lung bases are clear. Heart size is normal. Solid organs: Liver is normal in size and enhancement. Gallbladder demonstrates mild wall thickening. Biliary system is non dilated. Pancreas enhances normally. Status post splenectomy. The left kidney has multiple renal cysts measuring up to 4 cm. Peritoneum and bowel: Bowel loops demonstrate normal wall thickness and caliber. No free fluid or air. The appendix is normal. Nodes and vessels: No retroperitoneal or mesenteric adenopathy by size criteria. Aorta has atherosclerotic calcifications. Miscellaneous: No ventral hernias. PELVIS: Genitourinary: Bladder wall thickness is normal. Miscellaneous: Fat containing right inguinal hernia. Bones: No suspicious bony lesions. No vertebral body compression fractures. IMPRESSION: 1. Gallbladder wall thickening and distention, nonspecific. No gallstones. 2. Otherwise no acute abdominal or pelvic abnormality. 3. Right inguinal hernia. 4. Simple left renal cysts. 5. Status post splenectomy. Dictated by: Wilfred Woodward M.D. on 03/13/2020 at 20:32 Approved by: Wilfred Woodward M.D. on 03/13/2020 at 20:37
[2020-03-13 20:14] LABS: Creatine Kinase 59 U/L (55-170)
[2020-03-13] MEDS: ONDANSETRON 4 MG/2 ML INJ IV (20:21)
[2020-03-13] MEDS: SODIUM CHLORIDE 0.9% 1,000 ML 1000 ML IV (20:22)
[2020-03-13] MEDS: KETOROLAC 60 MG/2 ML VIAL 30 MG IV (20:22)
[2020-03-13] MEDS: PANTOPRAZOLE 40 MG VIAL IV (20:22)
[2020-03-13 20:27] LABS: Troponin I < 0.012 ng/mL (0.01-0.034)
[2020-03-13 21:05] VITALS: BP 116/59; PULSE 56; RESP 18; TEMP 37; O2SAT 96
[2020-03-13] MEDS: CEFOTETAN 2 GM/50 ML PIGGYBACK IV (21:46)
[2020-03-13 21:47] VITALS: PULSE 60; RESP 14; O2SAT 99
[2020-03-13 22:06] LABS: COVID19 -Nasal RAPID Negative (Negative)
[2020-03-13 22:45] VITALS: BMI 24.4
[2020-03-13 23:55] VITALS: BP 109/54; PULSE 62; RESP 16; TEMP 36.9; O2SAT 95
[2020-03-14] VITALS (17 sets, daily range): BP systolic 105–139; BP diastolic 58–78; PULSE 56–91; RESP 8–18; TEMP 36.4–37.7; O2SAT 4–98; BMI 24.4
--- NOTE | 2020-03-14 | PATH_ITS ---
[facility] Accession Number: [id number] . 01 Material submitted: . gallbladder - GALLBLADDER AND CONTENTS . 01 Clinical history: . CRAMPS THROWING UP . 02 Diagnosis: Gallbladder, Cholecystectomy: Chronic active cholecystitis with cholelithiasis. Negative for dysplasia and malignancy. [facility] 03/19/2020 1352 Local . 02 Electronically signed: . Negar Reyes MD, Pathologist NPI- [id number] . 01 Gross description: . The specimen is received in formalin, labeled gallbladder and contents and consists of a 9.5 x 3.5 x 3.0 cm intact gallbladder with a 0.3 cm in diameter cystic duct. The serosa is simon-pink and smooth. Opening reveals green viscous bile with a 1.8 x 1.3 x 1.2 cm simon bosselated cholelith firmly lodged within the neck of the specimen. The mucosa is simon-pink and velvety. The wall thickness measures 0.2 cm. A 1.5 x 1.0 x 0.6 cm simon-pink pericystic lymph node is identified. Wood Bucker sections are submitted to include the en face cystic duct margin (blue) and bisected lymph nodes in cassette A1. ([id number]) /MRV 03/16/2020 1240 Local . 02 Pathologist provided ICD-10: K80.60 . 02 CPT . 934071 Performed at: 01 [facility] [address] [id number] MD Yobany Santamaria MD Phone: [phone] Performed at: 02 [facility] [place] [address] [address] [place], [place] [id number] MD Negar Reyes MD Phone: [phone]
[2020-03-14] MEDS: MORPHINE 2 MG/ML INJ IV ×3 (00:21→08:31)
[2020-03-14] MEDS: SODIUM CHLORIDE 0.9% 1,000 ML 125 ML IV ×2 (00:21→07:43)
[2020-03-14] MEDS: ONDANSETRON 4 MG/2 ML INJ IV (05:19)
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
--- NOTE | 2020-03-14 09:02 | PM.PREOP ---
Pre-operative Note COVID-19 COVID-19 status: Negative Result date/Date tested (Pos, Neg/Pending): 03/13/20 Interval Note History & Physical reviewed/Exam performed by Physician: Yes Changes to H&P: No
[2020-03-14] MEDS: PROCHLORPERAZINE 10 MG/2 ML VIAL IV (10:20)
[2020-03-14] MEDS: SODIUM CHLORIDE 0.9% FLUSH 10 ML IV (10:21)
[2020-03-14] MEDS: HYDROMORPHONE 1 MG INJ IV ×2 (10:21→15:50)
[2020-03-14] MEDS: CEFOTETAN 2 GM/50 ML PIGGYBACK IV (13:55)
--- NOTE | 2020-03-14 15:05 | PC.NURSE ---
SHIFT SUMMARY PATIENT MUCH MORE COMFORTABLE WITH RELIEF OF NAUSEA AND IMPROVED PAIN CONTROL TO 2/10 AFTER DILAUDID IV AND COMPAZINE IV. SBA TO BR TO VOID. IVF INFUSING PER ORDERS. NPO ALL SHIFT. SURGERY SCHEDULED FOR 1700.
--- NOTE | 2020-03-14 15:45 | CM.IDA ---
Initial DCP Assessment Note Patient is a 54 yo male, resident of [place]. Patient admitted observation for acute abd. symptoms and scheduled for a lap appy this afternoon PCP: Kym Young Payer: Chele Patient scheduled for surgery this evening 1700, NPO today. Will plan to assess post operatively for any DC needs or concerns. KIKO
[2020-03-14] MEDS: LACTATED RINGERS 1,000 ML 42 ML IV ×2 (16:52→18:44)
[2020-03-14] MEDS: CEFAZOLIN 2 GM/100 ML FROZ.PIGGY IV (17:32)
--- NOTE | 2020-03-14 17:58 | SUR.OPER ---
Supine on padded OR bed, head on pillow, safety belt at thigh, left arm padded and tucked at side. Right arm secured on padded arm oard <90 degrees abduction. Legs uncrossed. Padded footboard in place. Tape over blanket to secure lower legs.
[2020-03-14] MEDS: BUPIVACAINE 0.5% (PF) VIAL 30 ML INJ (18:07)
--- NOTE | 2020-03-14 19:35 | PM.OP.1 ---
Operative Date/Time/Diagnoses Date of procedure: 03/14/20 Time of procedure: 19:35 Pre-op diagnosis: Acute cholecystitis with hydrops of the gallbladder secondary to a stone obstructing these cystic duct at its junction with the gallbladder. Post-op diagnosis: same Procedure & Clinicians Procedure: Laparoscopic cholecystectomy Same procedure as scheduled: Yes Indications: Severe right upper quadrant pain with an ultrasound showing a thickened gallbladder wall and a stone impacted in the into the gallbladder. Click Yes if Unassisted: Yes Anesthesia Type: General Operative Notes Findings: Adhesions from a prior operation initially obscured my view. Patient had greenish fluid within the abdomen. Gallbladder wall was markedly thickened and inflamed. Fluid within the gallbladder was devoid of bilious color Closure Type: primary Specimen(s): other (Gallbladder) Prosthetic devices, grafts, tissues, transplants, or devices: None Estimated Blood Loss (mL): 30 Blood products transfused: none Procedure in detail: Patient was placed supine on the operating table underwent general endotracheal anesthesia. He was prepped and draped in the usual fashion. Patient has a long transverse scar from a prior exploration of his abdomen. Incision was made beneath the umbilicus and carried down under direct vision through an umbilical hernia defect into the peritoneal cavity. Stay sutures of 0 Ethibond were placed in the fascia. A 12 mm port was inserted. Visualization showed omentum obscuring the view of the liver. I was able to place a port lateral abdominal wall in the upper abdomen. Through this 5 mm port I took down the adhesions such that I could visualize the liver and gallbladder. The gallbladder was tensely distended structure that was thickened and there were adhesions of omentum and stomach attached to it. I placed 2 additional ports under the right costal margin. I bluntly took down the omental adhesions and aspirated the gallbladder. I obtained about 50 cc of whitish cloudy fluid. The gallbladder was nicely decompressed and I was able to grab it and elevated. Further dissection I was able to get the remainder the he should is off the gallbladder wall. The end of the gallbladder became quite apparent. I isolated the cystic duct and it from surrounding structures. Four clips were placed across it was divided leaving 3 in the patient. Two vascular structures were encountered and these had multiple clips placed across them and they were divided leaving at least 2 in the patient. The gallbladder was then dissected from its bed in the liver and detached. It was placed in a bag to prevent spillage and removed without difficulty through the umbilical port. The right upper quadrant 0 and gated section free of fluid. I chose to take additional adhesions down to just the point just across the midline. There was no ongoing bleeding. The right upper quadrant was irrigated and suctioned free of fluid. Ports were all removed. The stay sutures were elevated at the umbilicus incision and a 2 0 PDS was placed between the 2 Ethibond sutures. The 3 sutures were tied repairing the hernia. The was re-irrigated in 4 0 Vicryl subcuticular stitches and Steri-Strips were applied followed by Band-Aids. The patient was awakened and extubated and taken the recovery area in good condition. There were no apparent complications. Complications: none Post-operative Condition: stable Disposition: PACU
--- NOTE | 2020-03-14 19:39 | SUR.PHASEI ---
193 to PACU sleeping, oral airway, spontaneous respirations on O2 at 4LNP. Abdomen soft, bandaids CDI 193 arousing spontaneously, responsive to command to open his mouth - airway Dc'd. When asked about pain/nausea, he returned to sleep without responding.
--- NOTE | 2020-03-14 20:05 | SUR.PHASEI ---
awake, drowsy, denies pain/nausea; sips of water given. belly remains soft, bandaids CDI. Questions appropriate, resp unlabored, skin warm and dry
--- NOTE | 2020-03-14 20:20 | SUR.PHASEI ---
2008 to room 217, bed down and locked, call light within reach. Transported on O2 @ 2LNP and put on 2L in the room. SCDs on. Family at bedside, no questions from staff or patient. Report updated. Stable
[2020-03-14] MEDS: GABAPENTIN 300 MG CAPSULE PO (20:22)
[2020-03-14] MEDS: LACTATED RINGERS 1,000 ML 125 ML IV (20:23)
[2020-03-14] MEDS: MAGNESIUM SULFATE 2 GM, FOLIC ACID 1 MG, THIAMINE 100 MG, MULTIVITAMIN 10 ML in SODIUM ... IV (21:05)
[2020-03-15] VITALS: BP 110/67; PULSE 72; RESP 18; TEMP 36.3; O2SAT 98
[2020-03-15 05:00] VITALS: BP 100/56; PULSE 56; RESP 18; TEMP 36.2; O2SAT 98
[2020-03-15 05:29] LABS: Alanine Aminotransferase 67 IU/L (<50); Albumin 2.9 g/dL (3.5-5.0); Albumin Globulin Ratio 1.2 (1.0-2.8); Alkaline Phosphatase 46 U/L (38-126); Aspartate Aminotransferase 54 IU/L (17-59); BUN Creatinine Ratio 21.3 (6-22); Bilirubin Total 0.6 mg/dL (0.2-1.3); Blood Urea Nitrogen 16 mg/dL (9-20); Calcium 8.8 mg/dL (8.4-10.2); Carbon Dioxide 28 mmol/L (22-32); Chloride 109 mmol/L (98-107); Estimated Glomerular Filt Rate > 60.0 mL/min (>60); Globulin 2.4 g/dL (1.7-4.1); Glucose 125 mg/dL (70-100); HEMOLYSIS 23 (0-50); Potassium 4.7 mmol/L (3.4-5.1); Sodium 136 mmol/L (137-145); Total Protein 5.3 g/dL (6.3-8.2)
[2020-03-15 05:31] LABS: Basophils Absolute Auto 200 /uL (0-100); Eosinophils Absolute Auto 0 /uL (0-450); Eosinophils Percent Auto 0.1 % (2-4); Hematocrit 40.1 % (41-53); Hemoglobin 13.2 g/dL (13.5-17.5); Lymphocytes Absolute Auto 2000 /uL (1100-4500); Lymphocytes Percent Auto 10.6 % (25-40); Mean Corpuscular Hemoglobin 32.2 PG (26-34); Mean Corpuscular Volume 97.6 fL (80-100); Monocytes Absolute Auto 1500 /uL (0-900); Monocytes Percent Auto 8.2 % (3-14); Neutrophils Absolute Auto 14800 /uL (1500-7000); Neutrophils Percent Auto 80.1 % (50-75); Red Cell Distribution Width 13.2 % (11.6-14.8); White Blood Cell Count 18.5 X10^3/uL (4.5-11.0)
[2020-03-15 05:50] LABS: Add Manual Diff / Slide Review SLIDE REVIEW
--- NOTE | 2020-03-15 06:28 | PC.NURSE ---
Pt O2 sat decreases during sleep, on 2L NC at start of shift, decreased to 1L NC at end of shift, sats @ mid 90s. Denies pain, NVD. No seizure activity noted through night, CIWA 0, banana bag finished and LR running at prescribed rate. Pt slept well through night.
[2020-03-15 06:52] LABS: Platelet Count 255 X10^3/uL (150-400); Platelet Estimate Adequate on smear; RBC Morphology Normal Morphology
[2020-03-15 08:00] VITALS: BP 102/52; PULSE 49; RESP 16; TEMP 36.3; O2SAT 98
[2020-03-15] MEDS: ENOXAPARIN 40 MG/0.4 ML SYRINGE SUBCUT (10:24)
[2020-03-15] MEDS: FOLIC ACID 1 MG TABLET PO (10:24)
[2020-03-15] MEDS: GABAPENTIN 300 MG CAPSULE PO (10:25)
[2020-03-15] MEDS: MULTIVITAMIN 1 TABLET 1 TAB PO (10:25)
[2020-03-15] MEDS: THIAMINE 100 MG TABLET PO (10:25)
--- NOTE | 2020-03-15 12:24 | PC.NURSE ---
Pt is finishing up eating lunch with his daughter at the bedside. Went over d/c instructions with Pt-discussed d/c meds, time of last dose, reviewed stroke education, encouraged Pt to avoid fatty and spicy foods and drink plenty of fluids to prevent constipation or dehydration and to remember to take all of his abx as ordered. Reminded Pt to not lift over 10 pounds and take it easy and to call [facility] to make his follow up appointment. Pt denies further questions and plans to finish his meal, get dressed and be taken out via w/c by SERVICE SUPERVISOR to POV with daughter and all belongings.
--- NOTE | 2020-03-22 21:03 | PC.NURSE ---
Late Entry; Cefotan infusion initiated 1 at 21;46, complete at 22:17. LR infusion initiated 03/14 at 20:23, complete, 03/15 at 04:24. Magnesium infusion initiated at 21:05 complete at 03/15 at 05:13.
== END 2020-03-15 12:44 | disposition home or self-care (01) ==
LOC: ED 21:26 → AC 21:36
PROVIDERS: Admitting Provider Specialist; Emergency Provider Emergency Medicine; PCP Family Medicine; Referring Provider Emergency Medicine; Visit Provider Specialist
PROC: 0FT44ZZ Resection of Gallbladder, Percutaneous Endoscopic Approach (ICD-10-PCS; CPT 47562; principal; 2020-03-14 17:15)
DX: K80.00 Calculus of gallbladder with acute cholecystitis without obstruction (principal); F32.9 Major depressive disorder, single episode, unspecified; F17.210 Nicotine dependence, cigarettes, uncomplicated; Z20.822 Contact with and (suspected) exposure to COVID-19; K82.1 Hydrops of gallbladder
CPT/HCPCS: 47562; 36415; 74177; 76705; 80053; 82550; 83690; 84484; 85025; 85610; 85730; 87635; 93005; 96361; 96365; 96366; 96367; 96372; 96375; 96376; 99219; 99284; C9803; G0378; C9113; J0330; J0690; J0780; J1100; J1170; J1650; J1885; J2250; J2270; J2405; J2704; J3010; J3475; Q9967

== ENCOUNTER → 2020-06-20 17:50 | Outpatient (CLI) | payer OTHER, SELFPAY ==
[2020-03-16 10:50] VITALS: BMI 24.4
--- NOTE | 2020-06-20 | DI.MRI.S_ITS ---
PROCEDURE: MR LUMBAR SPINE WO CON INDICATIONS: spinal stenosis, lumbar region TECHNIQUE: Noncontrast sagittal T1 spin echo and T2 fast echo, sagittal STIR, axial T1 and T2 fast spin echo through the lumbar spine. In cases with scoliosis, additional coronal T2 fast spin echo may be performed. COMPARISON: [facility], MR, MR LUMBAR SPINE WO CON, 03/19/2019, 9:48. [facility], CR, XR LUMBAR SPINE 2-3V, 10/04/2019, 12:02. FINDINGS: Image quality: Excellent. Alignment and Curvature: There is normal bony alignment. Bones: Transitional lumbosacral vertebral anatomy noted with sacralization of the L5 vertebral body. Marrow is of normal overall signal. No acute vertebral body compression fractures. Spinal Cord: Conus medullaris terminates at the L1 level. Visualized cord demonstrates normal signal and size. Paraspinous Soft Tissues: No paravertebral masses. Left renal cysts. T12-L1: Loss of disc signal. Mild, diffuse disc bulge. No central stenosis. No neural foraminal narrowing. No neural compression. L1-L2: Loss of disc signal. Mild, diffuse disc bulge. No central stenosis. No neural foraminal narrowing. No neural compression. L2-L3: Loss of disc signal. Mild, diffuse disc bulge. No central stenosis. Mild bilateral neural foraminal narrowing. No neural compression. L3-L4: Loss of disc signal. Mild, diffuse disc bulge. Mild bilateral facet hypertrophy. No central stenosis. Mild bilateral neural foraminal narrowing. No neural compression. L4-L5: Loss of disc signal. Mild, diffuse disc bulge. Mild bilateral facet hypertrophy. No central stenosis. Moderate bilateral neural foraminal narrowing. No neural compression. L5-S1: Normal appearance. IMPRESSION: 1. Transitional lumbosacral vertebral anatomy with sacralization of the L5 vertebral body. 2. Mild multilevel degenerative disc disease. 3. Mild multilevel facet arthropathy. 4. No central stenosis. 5. Moderate bilateral L4-L5 neural foraminal narrowing. Mild bilateral L2-L3 and L3-L4 neural foraminal narrowing. 6. No neural compression. Dictated by: Jennifer Aceves MD, PhD on 06/21/2020 at 12:17 Approved by: Jennifer Aceves MD, PhD on 06/21/2020 at 12:22
== END ==
PROVIDERS: PCP Family Medicine; Referring Provider Family Medicine; Visit Provider Family Medicine
DX: M48.061 Spinal stenosis, lumbar region without neurogenic claudication (principal); M51.36 Other intervertebral disc degeneration, lumbar region; M47.816 Spondylosis without myelopathy or radiculopathy, lumbar region; M43.27 Fusion of spine, lumbosacral region
CPT/HCPCS: 72148

== ENCOUNTER 2020-12-31 16:45 | Outpatient (RCR) | payer OTHER, SELFPAY ==
[2020-03-16 10:50] VITALS: BMI 24.4
--- NOTE | 2020-11-19 17:56 | PT.OTN ---
Current Diagnoses Strain of muscle, fascia and tendon of lower back, subsequent encounter (11/19/20) Physical Therapy Treatment Note PT-OP-A Visit Information Start: 11/19/20 17:28 Freq: Status: Active Protocol: Document 11/19/20 16:00 DCW (Rec: 11/19/20 17:41 [facility] [id number]) Out-Patient Physical Therapy Visit Information Visit Information Visit Type Initial Evaluation Visit Start Time 16:00 Visit Stop Time 16:45 Total Visit Minutes 45 Visit Number 1 Number of MANAGED CARE COORDINATOR Visits 0 Evaluation Information Evaluation Date 11/19/20 PT-OP-B Current Condition Start: 11/19/20 17:28 Freq: Status: Active Protocol: Document 11/19/20 16:00 DCW (Rec: 11/19/20 17:41 [facility] [id number]) Current Condition History of Current Condition Onset Date Greater than one year history Current Complaints Low back pain L>R History of Current Condition Pt is a 55 year old male presenting with a year+ history of low back pain following a workplace injury after he spend a long day lifting heavy boxes. Pt was seen at this clinic beginning 10/20/19 following his injury, got some relief, but notes today that it has never gone away. Has switched jobs multiple times since then, and now has a much less physically demanding job. Still has significant difficulty due to his back. Notes he had to drive to [place] a few weeks ago, and it almost killed me. Notes by the time he drove for 1 hour, he was having a lot of pain, and it continued to worsen over the next four hours until he got to his destination. Reports his pain always worsens as the day goes on. Admits he has had to pretty much give up all his hobbies, like riding 4- wheelers. Prior Treatments and Tests 06/20/20 MRI notes Scralization of L5, as well as multilevel DDD and foraminal narrowing PT-OP-C Subjective Start: 11/19/20 17:28 Freq: Status: Active Protocol: Document 11/19/20 16:00 DCW (Rec: 11/19/20 17:41 [facility] [id number]) OP-PT Subjective Patient Comments Patient Comments It's gotten to the point where I just don't really do anything, in hopes that it doesn't get worse. Patient Questionnaires Oswestry Low Back Index Oswestry Score 15/50 = 30% Oswestry Impairment 20 to 39% Impaired (Score 20- 39) OP-PT Pain Assessment Pain Assessment Grid Paper Pain Assessment Grid Completed Yes Location Lower Back Intensity 4 Scale Used Numeric (0 - 10) Description Radiating Radiating Location Posterior hip, L>R PT-OP-F Manual Assessment Start: 11/19/20 17:28 Freq: Status: Active Protocol: Document 11/19/20 16:00 DCW (Rec: 11/19/20 17:41 DCW [id number]) Manual Assessments Soft Tissue Assessment Soft Tissue Mobility Assessment Moderate tone with tenderness to palpation 3/4: Wincing and withdraw along left QL, Piriformis, and Psoas Mild tone with tenderness to palpation 2/4: Pain with wincing along right QL, Piriformis, and Psoas PT-OP-K Range of Motion Start: 11/19/20 17:28 Freq: Status: Active Protocol: Document 11/19/20 16:00 DCW (Rec: 11/19/20 17:47 DCW [id number]) Lumbar Spine Range of Motion Lumbar Spine Active Degrees Testing Position Standing Flexion 70 Extension 15 Lateral Flexion Left 52 Lateral Flexion Right 47 Comments Lateral flexion measured in cm from fingertips to floor PT-OP-L Special Tests Start: 11/19/20 17:28 Freq: Status: Active Protocol: Document 11/19/20 16:00 DCW (Rec: 11/19/20 17:47 DC[facility] [id number]) Special Tests Lumbar Spine Special Tests Lateral Compression Test Results Negative Vertical Spine Loading Test Results Negative Standing Flexion Test Results Negative Compression Test Results Negative A-P Shearing Test Results Positive L Straight Leg Raise Test Results L HS tightness at 45? Slump Test Results Negative Hip Special Tests Piriformis Test Results Positive L ROCIO Test Results Negative PT-OP-M Strength Start: 11/19/20 17:28 Freq: Status: Active Protocol: Document 11/19/20 16:00 DCW (Rec: 11/19/20 17:47 DC[facility] [id number]) Hip Strength Hip Manual Muscle Testing Right Flexion (L2) 5 Normal Abduction 5 Normal Adduction 5 Normal External Rotation 5 Normal Internal Rotation 5 Normal Left Flexion (L2) 5 Normal Abduction 5 Normal Adduction 5 Normal External Rotation 5 Normal Internal Rotation 5 Normal Knee Strength Knee Manual Muscle Testing Right Flexion (S2) 5 Normal Extension (L3) 5 Normal Left Flexion (S2) 5 Normal Extension (L3) 5 Normal PT-OP-Q Treatments Start: 11/19/20 17:28 Freq: Status: Active Protocol: Document 11/19/20 16:00 DCW (Rec: 11/19/20 17:47 DC[facility] [id number]) Therapeutic Exercises Supine Exercises 2 Supine Exercise Name Piriformis stretch - knee to opposite shoulder Side bilateral 1 Supine Exercise Name HS stretch /c strap Side bilateral PT-OP-T Assessment and Plan Start: 11/19/20 17:28 Freq: Status: Active Protocol: Document 11/19/20 16:00 DCW (Rec: 11/19/20 17:56 DC[facility] [id number]) Physical Therapy Assessment Rehab Potential Rehabilitation Potential Good Evaluation Complexity Number of Personal Factors/Comorbidities 3 or More Number of Body Systems Impaired 1-2 Clinical Presentation at Evaluation Stable Impairments Impairments Activity Tolerance,Functional Activities,Functional Mobility ,ROM,Soft Tissue Mobility Goals Three Impairment Pt scores 30% disability on the Modified Oswestry Questionnaire Line Service Technician Goal (LTG) Pt to demonstrate improved functionality by scoring <15% disability on the Modified Oswestry LTG Duration 01/19/21 Two Impairment Pt experiences severe back pain driving longer than one hour Assisted Goal (LTG) Pt to tolerate driving 5 hours without increased back pain with two stops to improve his quality of life when traveling to [place] for any future job training. LTG Duration 01/19/21 One Impairment Pt does not have an appropriate home exercise program Short Term Goal (STG) Pt to be independent and compliant with an appropriate HEP STG Duration 12/19/20 Assessment Summary Assessment Pt presents with signs and symptoms of continued chronic low back injury. Pt displays L >R increased muscle tone, specifically along QL, Piriformis, Hamstrings, and Psoas. Pt appears to have maintained very good LE strength and mobility, and his previous right foot drop is no long present. Pt should benefit from skilled therapy focusing on using STM to decrease tone, as well as flexibility to improve lumbar and LE mobility. Physical Therapy Plan Frequency and Duration Frequency of Treatment 2x/Week Duration of Treatment Two months Plan of Care Start Date 11/19/20 Plan of Care End Date 01/19/21 Therapeutic Interventions Therapeutic Interventions Home Exercise Program,Joint Mobilizations,Neuromuscular Re -education,Patient/Caregiver Education,Self-Care/Home Management,Soft Tissue Mobilization,Therapeutic Activities,Therapeutic Exercises Modalities Cold Pack/Ice Massage,Electric Stimulation,Hot Packs, Ultrasound Next Visit Focus/Plan Next Note Type Treatment Note Next Visit Plan STM, Flexibility training
--- NOTE | 2020-11-19 17:57 | PT.OPPOC ---
Physical, Occupational & Speech Therapy At [facility] Current Diagnoses Strain of muscle, fascia and tendon of lower back, subsequent encounter (11/19/20) Visit Care Team Role Provider Type Liliya Young MD Primary Care Provider Physician Specialty: Family Practice Address: [address] [place] [address], [place], [address] Email: [email or web address] Darnell Raphael MD Attending Provider Physician Referring Provider Specialty: Orthopedic Surgery Address: [address] [place] [address], [place], [address] Email: Plan Of Care PT-OP-T Assessment and Plan Start: 11/19/20 17:28 Freq: Status: Active Protocol: Document 11/19/20 16:00 DCW (Rec: 11/19/20 17:56 DCW [id number]) Physical Therapy Assessment Rehab Potential Rehabilitation Potential Good Evaluation Complexity Number of Personal Factors/Comorbidities 3 or More Number of Body Systems Impaired 1-2 Clinical Presentation at Evaluation Stable Impairments Impairments Activity Tolerance,Functional Activities,Functional Mobility ,ROM,Soft Tissue Mobility Goals Three Impairment Pt scores 30% disability on the Modified Oswestry Questionnaire Passenger Rate Clerk Goal (LTG) Pt to demonstrate improved functionality by scoring <15% disability on the Modified Oswestry LTG Duration 01/19/21 Two Impairment Pt experiences severe back pain driving longer than one hour Passenger Rate Clerk Goal (LTG) Pt to tolerate driving 5 hours without increased back pain with two stops to improve his quality of life when traveling to [place] for any future job training. LTG Duration 01/19/21 One Impairment Pt does not have an appropriate home exercise program Short Term Goal (STG) Pt to be independent and compliant with an appropriate HEP STG Duration 12/19/20 Assessment Summary Assessment Pt presents with signs and symptoms of continued chronic low back injury. Pt displays L >R increased muscle tone, specifically along QL, Piriformis, Hamstrings, and Psoas. Pt appears to have maintained very good LE strength and mobility, and his previous right foot drop is no long present. Pt should benefit from skilled therapy focusing on using STM to decrease tone, as well as flexibility to improve lumbar and LE mobility. Physical Therapy Plan Frequency and Duration Frequency of Treatment 2x/Week Duration of Treatment Two months Plan of Care Start Date 11/19/20 Plan of Care End Date 01/19/21 Therapeutic Interventions Therapeutic Interventions Home Exercise Program,Joint Mobilizations,Neuromuscular Re -education,Patient/Caregiver Education,Self-Care/Home Management,Soft Tissue Mobilization,Therapeutic Activities,Therapeutic Exercises Modalities Cold Pack/Ice Massage,Electric Stimulation,Hot Packs, Ultrasound Next Visit Focus/Plan Next Note Type Treatment Note Next Visit Plan STM, Flexibility training Plan of Care Dates Plan of Care Start Date 11/19/20 Plan of Care End Date 01/19/21 Electronically Signed by: Jose M Balbuena, PT 11/19/20 [id number] Please Sign and Return: I have reviewed this Plan of Care and certify that the skilled therapy services above are required to meet the patient?s needs. Physician Signature Date Printed Name and Credentials Clinical Instructor Signature Printed Name and Credentials
--- NOTE | 2020-11-21 17:38 | PT.OTN ---
Current Diagnoses Strain of muscle, fascia and tendon of lower back, subsequent encounter (11/21/20) Physical Therapy Treatment Note PT-OP-A Visit Information Start: 11/19/20 17:28 Freq: Status: Active Protocol: Document 11/21/20 16:45 DCW (Rec: 11/21/20 17:38 DC[facility] [id number]) Out-Patient Physical Therapy Visit Information Visit Information Visit Type Treatment Note Visit Start Time 16:45 Visit Stop Time 17:30 Total Visit Minutes 45 Visit Number 2 Number of HORTICULTURE/FLORICULTURE TEACHER Visits 0 Evaluation Information Evaluation Date 11/19/20 PT-OP-B Current Condition Start: 11/19/20 17:28 Freq: Status: Active Protocol: Document 11/19/20 16:00 DCW (Rec: 11/19/20 17:41 [facility] [id number]) Current Condition History of Current Condition Onset Date Greater than one year history Current Complaints Low back pain L>R History of Current Condition Pt is a 55 year old male presenting with a year+ history of low back pain following a workplace injury after he spend a long day lifting heavy boxes. Pt was seen at this clinic beginning 10/20/19 following his injury, got some relief, but notes today that it has never gone away. Has switched jobs multiple times since then, and now has a much less physically demanding job. Still has significant difficulty due to his back. Notes he had to drive to [place] a few weeks ago, and it almost killed me. Notes by the time he drove for 1 hour, he was having a lot of pain, and it continued to worsen over the next four hours until he got to his destination. Reports his pain always worsens as the day goes on. Admits he has had to pretty much give up all his hobbies, like riding 4- wheelers. Prior Treatments and Tests 06/20/20 MRI notes Scralization of L5, as well as multilevel DDD and foraminal narrowing PT-OP-C Subjective Start: 11/19/20 17:28 Freq: Status: Active Protocol: Document 11/21/20 16:45 DCW (Rec: 11/21/20 17:38 DCW [id number]) OP-PT Subjective Patient Comments Patient Comments Pt a little sore, but not bad . PT-OP-F Manual Assessment Start: 11/19/20 17:28 Freq: Status: Active Protocol: Document 11/19/20 16:00 DCW (Rec: 11/19/20 17:41 DCW [id number]) Manual Assessments Soft Tissue Assessment Soft Tissue Mobility Assessment Moderate tone with tenderness to palpation 3/4: Wincing and withdraw along left QL, Piriformis, and Psoas Mild tone with tenderness to palpation 2/4: Pain with wincing along right QL, Piriformis, and Psoas PT-OP-K Range of Motion Start: 11/19/20 17:28 Freq: Status: Active Protocol: Document 11/19/20 16:00 DCW (Rec: 11/19/20 17:47 DCW [id number]) Lumbar Spine Range of Motion Lumbar Spine Active Degrees Testing Position Standing Flexion 70 Extension 15 Lateral Flexion Left 52 Lateral Flexion Right 47 Comments Lateral flexion measured in cm from fingertips to floor PT-OP-L Special Tests Start: 11/19/20 17:28 Freq: Status: Active Protocol: Document 11/19/20 16:00 DCW (Rec: 11/19/20 17:47 DCW [id number]) Special Tests Lumbar Spine Special Tests Lateral Compression Test Results Negative Vertical Spine Loading Test Results Negative Standing Flexion Test Results Negative Compression Test Results Negative A-P Shearing Test Results Positive L Straight Leg Raise Test Results L HS tightness at 45? Slump Test Results Negative Hip Special Tests Piriformis Test Results Positive L ROCIO Test Results Negative PT-OP-M Strength Start: 11/19/20 17:28 Freq: Status: Active Protocol: Document 11/19/20 16:00 DCW (Rec: 11/19/20 17:47 DCW [id number]) Hip Strength Hip Manual Muscle Testing Right Flexion (L2) 5 Normal Abduction 5 Normal Adduction 5 Normal External Rotation 5 Normal Internal Rotation 5 Normal Left Flexion (L2) 5 Normal Abduction 5 Normal Adduction 5 Normal External Rotation 5 Normal Internal Rotation 5 Normal Knee Strength Knee Manual Muscle Testing Right Flexion (S2) 5 Normal Extension (L3) 5 Normal Left Flexion (S2) 5 Normal Extension (L3) 5 Normal PT-OP-Q Treatments Start: 11/19/20 17:28 Freq: Status: Active Protocol: Document 11/21/20 16:45 DCW (Rec: 11/21/20 17:38 DCW [id number]) Therapeutic Exercises Supine Exercises 3 Supine Exercise Name ITB Stretch Side bilateral 2 Supine Exercise Name Piriformis stretch - knee to opposite shoulder Side bilateral 1 Supine Exercise Name HS stretch Side bilateral Manual Therapy Treatment Soft Tissue Mobilization L piriformis Mobilization Type Sustained Pressure,Trigger Point Release Intensity/Depth Moderate Body Position Sidelying Comments significant tenderness noted Upper Gluteals Body Location Upper Gluteal Mobilization Type Strumming Body Position Prone L sacral border Body Location L Sacral Border Mobilization Type Strumming,Other Body Position Prone Comments Circles along sacral border PT-OP-T Assessment and Plan Start: 11/19/20 17:28 Freq: Status: Active Protocol: Document 11/21/20 16:45 DCW (Rec: 11/21/20 17:38 DCW [id number]) Physical Therapy Assessment Impairments Impairments Activity Tolerance,Functional Activities,Functional Mobility ,ROM,Soft Tissue Mobility Goals Three Impairment Pt scores 30% disability on the Modified Oswestry Questionnaire Correction Goal (LTG) Pt to demonstrate improved functionality by scoring <15% disability on the Modified Oswestry LTG Duration 01/19/21 Two Impairment Pt experiences severe back pain driving longer than one hour Field Aide Goal (LTG) Pt to tolerate driving 5 hours without increased back pain with two stops to improve his quality of life when traveling to [place] for any future job training. LTG Duration 01/19/21 One Impairment Pt does not have an appropriate home exercise program Short Term Goal (STG) Pt to be independent and compliant with an appropriate HEP STG Duration 12/19/20 Assessment Summary Assessment Pt tolerated treatment well, did not some tenderness along left QL, but otherwise felt pretty good during STM. Physical Therapy Plan Frequency and Duration Frequency of Treatment 2x/Week Duration of Treatment Two months Plan of Care Start Date 11/19/20 Plan of Care End Date 01/19/21 Therapeutic Interventions Therapeutic Interventions Home Exercise Program,Joint Mobilizations,Neuromuscular Re -education,Patient/Caregiver Education,Self-Care/Home Management,Soft Tissue Mobilization,Therapeutic Activities,Therapeutic Exercises Modalities Cold Pack/Ice Massage,Electric Stimulation,Hot Packs, Ultrasound Next Visit Focus/Plan Next Note Type Treatment Note Next Visit Plan STM, Flexibility training
--- NOTE | 2020-11-28 17:24 | PT.OTN ---
Current Diagnoses Strain of muscle, fascia and tendon of lower back, subsequent encounter (11/28/20) Physical Therapy Treatment Note PT-OP-A Visit Information Start: 11/19/20 17:28 Freq: Status: Active Protocol: Document 11/28/20 16:45 DCW (Rec: 11/28/20 17:23 DCW [id number]) Out-Patient Physical Therapy Visit Information Visit Information Visit Type Treatment Note Visit Start Time 16:45 Visit Stop Time 17:30 Total Visit Minutes 45 Visit Number 3 Number of ART DIRECTOR Visits 0 Evaluation Information Evaluation Date 11/19/20 PT-OP-B Current Condition Start: 11/19/20 17:28 Freq: Status: Active Protocol: Document 11/19/20 16:00 DCW (Rec: 11/19/20 17:41 DCW [id number]) Current Condition History of Current Condition Onset Date Greater than one year history Current Complaints Low back pain L>R History of Current Condition Pt is a 55 year old male presenting with a year+ history of low back pain following a workplace injury after he spend a long day lifting heavy boxes. Pt was seen at this clinic beginning 10/20/19 following his injury, got some relief, but notes today that it has never gone away. Has switched jobs multiple times since then, and now has a much less physically demanding job. Still has significant difficulty due to his back. Notes he had to drive to [place] a few weeks ago, and it almost killed me. Notes by the time he drove for 1 hour, he was having a lot of pain, and it continued to worsen over the next four hours until he got to his destination. Reports his pain always worsens as the day goes on. Admits he has had to pretty much give up all his hobbies, like riding 4- wheelers. Prior Treatments and Tests 06/20/20 MRI notes Scralization of L5, as well as multilevel DDD and foraminal narrowing PT-OP-C Subjective Start: 11/19/20 17:28 Freq: Status: Active Protocol: Document 11/28/20 16:45 DCW (Rec: 11/28/20 17:23 DCW [id number]) OP-PT Subjective Patient Comments Patient Comments Pt reports he is a little sore. PT-OP-F Manual Assessment Start: 11/19/20 17:28 Freq: Status: Active Protocol: Document 11/19/20 16:00 DCW (Rec: 11/19/20 17:41 DCW [id number]) Manual Assessments Soft Tissue Assessment Soft Tissue Mobility Assessment Moderate tone with tenderness to palpation 3/4: Wincing and withdraw along left QL, Piriformis, and Psoas Mild tone with tenderness to palpation 2/4: Pain with wincing along right QL, Piriformis, and Psoas PT-OP-K Range of Motion Start: 11/19/20 17:28 Freq: Status: Active Protocol: Document 11/19/20 16:00 DCW (Rec: 11/19/20 17:47 DCW [id number]) Lumbar Spine Range of Motion Lumbar Spine Active Degrees Testing Position Standing Flexion 70 Extension 15 Lateral Flexion Left 52 Lateral Flexion Right 47 Comments Lateral flexion measured in cm from fingertips to floor PT-OP-L Special Tests Start: 11/19/20 17:28 Freq: Status: Active Protocol: Document 11/19/20 16:00 DCW (Rec: 11/19/20 17:47 DCW [id number]) Special Tests Lumbar Spine Special Tests Lateral Compression Test Results Negative Vertical Spine Loading Test Results Negative Standing Flexion Test Results Negative Compression Test Results Negative A-P Shearing Test Results Positive L Straight Leg Raise Test Results L HS tightness at 45? Slump Test Results Negative Hip Special Tests Piriformis Test Results Positive L ROCIO Test Results Negative PT-OP-M Strength Start: 11/19/20 17:28 Freq: Status: Active Protocol: Document 11/19/20 16:00 DCW (Rec: 11/19/20 17:47 DCW [id number]) Hip Strength Hip Manual Muscle Testing Right Flexion (L2) 5 Normal Abduction 5 Normal Adduction 5 Normal External Rotation 5 Normal Internal Rotation 5 Normal Left Flexion (L2) 5 Normal Abduction 5 Normal Adduction 5 Normal External Rotation 5 Normal Internal Rotation 5 Normal Knee Strength Knee Manual Muscle Testing Right Flexion (S2) 5 Normal Extension (L3) 5 Normal Left Flexion (S2) 5 Normal Extension (L3) 5 Normal PT-OP-Q Treatments Start: 11/19/20 17:28 Freq: Status: Active Protocol: Document 11/28/20 16:45 DCW (Rec: 11/28/20 17:23 DCW [id number]) Therapeutic Exercises Supine Exercises 3 Supine Exercise Name ITB Stretch Side bilateral 2 Supine Exercise Name Piriformis stretch - knee to opposite shoulder Side bilateral 1 Supine Exercise Name HS stretch Side bilateral Manual Therapy Treatment Soft Tissue Mobilization L piriformis Mobilization Type Sustained Pressure,Trigger Point Release Intensity/Depth Moderate Body Position Sidelying Comments significant tenderness noted Upper Gluteals Body Location Upper Gluteal Mobilization Type Strumming Body Position Prone L sacral border Body Location L Sacral Border Mobilization Type Strumming,Other Body Position Prone Comments Circles along sacral border PT-OP-R Modalities Start: 11/19/20 17:28 Freq: Status: Active Protocol: Document 11/28/20 16:45 DCW (Rec: 11/28/20 17:24 DCW [id number]) Electric Stimulation Electric Stimulation Interferential Current (IFC) Body Location Low back Duration (Minutes) 15 Cycle Continuous Patient Position Prone Combined With Heat/Cold Hot Pack PT-OP-T Assessment and Plan Start: 11/19/20 17:28 Freq: Status: Active Protocol: Document 11/28/20 16:45 DCW (Rec: 11/28/20 17:23 DCW [id number]) Physical Therapy Assessment Impairments Impairments Activity Tolerance,Functional Activities,Functional Mobility ,ROM,Soft Tissue Mobility Goals Three Impairment Pt scores 30% disability on the Modified Oswestry Questionnaire Prison Goal (LTG) Pt to demonstrate improved functionality by scoring <15% disability on the Modified Oswestry LTG Duration 01/19/21 Two Impairment Pt experiences severe back pain driving longer than one hour Loading Machine Operator Helper Goal (LTG) Pt to tolerate driving 5 hours without increased back pain with two stops to improve his quality of life when traveling to [place] for any future job training. LTG Duration 01/19/21 One Impairment Pt does not have an appropriate home exercise program Short Term Goal (STG) Pt to be independent and compliant with an appropriate HEP STG Duration 12/19/20 Assessment Summary Assessment Trial of e-stim today to help with linging soreness following his last PT session. Physical Therapy Plan Frequency and Duration Frequency of Treatment 2x/Week Duration of Treatment Two months Plan of Care Start Date 11/19/20 Plan of Care End Date 01/19/21 Therapeutic Interventions Therapeutic Interventions Home Exercise Program,Joint Mobilizations,Neuromuscular Re -education,Patient/Caregiver Education,Self-Care/Home Management,Soft Tissue Mobilization,Therapeutic Activities,Therapeutic Exercises Modalities Cold Pack/Ice Massage,Electric Stimulation,Hot Packs, Ultrasound Next Visit Focus/Plan Next Note Type Treatment Note Next Visit Plan STM, Flexibility training
--- NOTE | 2020-12-04 17:21 | PT.OTN ---
Current Diagnoses Strain of muscle, fascia and tendon of lower back, subsequent encounter (12/04/20) Physical Therapy Treatment Note PT-OP-A Visit Information Start: 11/19/20 17:28 Freq: Status: Active Protocol: Document 12/04/20 16:45 DCW (Rec: 12/04/20 17:21 DCW [id number]) Out-Patient Physical Therapy Visit Information Visit Information Visit Type Treatment Note Visit Start Time 16:45 Visit Stop Time 17:30 Total Visit Minutes 45 Visit Number 4 Number of MANAGER OF PRODUCT Visits 0 Evaluation Information Evaluation Date 11/19/20 PT-OP-B Current Condition Start: 11/19/20 17:28 Freq: Status: Active Protocol: Document 11/19/20 16:00 DCW (Rec: 11/19/20 17:41 DCW [id number]) Current Condition History of Current Condition Onset Date Greater than one year history Current Complaints Low back pain L>R History of Current Condition Pt is a 55 year old male presenting with a year+ history of low back pain following a workplace injury after he spend a long day lifting heavy boxes. Pt was seen at this clinic beginning 10/20/19 following his injury, got some relief, but notes today that it has never gone away. Has switched jobs multiple times since then, and now has a much less physically demanding job. Still has significant difficulty due to his back. Notes he had to drive to [place] a few weeks ago, and it almost killed me. Notes by the time he drove for 1 hour, he was having a lot of pain, and it continued to worsen over the next four hours until he got to his destination. Reports his pain always worsens as the day goes on. Admits he has had to pretty much give up all his hobbies, like riding 4- wheelers. Prior Treatments and Tests 06/20/20 MRI notes Scralization of L5, as well as multilevel DDD and foraminal narrowing PT-OP-C Subjective Start: 11/19/20 17:28 Freq: Status: Active Protocol: Document 12/04/20 16:45 DCW (Rec: 12/04/20 17:21 DCW [id number]) OP-PT Subjective Patient Comments Patient Comments Pt had a pretty easy day today PT-OP-F Manual Assessment Start: 11/19/20 17:28 Freq: Status: Active Protocol: Document 11/19/20 16:00 DCW (Rec: 11/19/20 17:41 DCW [id number]) Manual Assessments Soft Tissue Assessment Soft Tissue Mobility Assessment Moderate tone with tenderness to palpation 3/4: Wincing and withdraw along left QL, Piriformis, and Psoas Mild tone with tenderness to palpation 2/4: Pain with wincing along right QL, Piriformis, and Psoas PT-OP-K Range of Motion Start: 11/19/20 17:28 Freq: Status: Active Protocol: Document 11/19/20 16:00 DCW (Rec: 11/19/20 17:47 DCW [id number]) Lumbar Spine Range of Motion Lumbar Spine Active Degrees Testing Position Standing Flexion 70 Extension 15 Lateral Flexion Left 52 Lateral Flexion Right 47 Comments Lateral flexion measured in cm from fingertips to floor PT-OP-L Special Tests Start: 11/19/20 17:28 Freq: Status: Active Protocol: Document 11/19/20 16:00 DCW (Rec: 11/19/20 17:47 DCW [id number]) Special Tests Lumbar Spine Special Tests Lateral Compression Test Results Negative Vertical Spine Loading Test Results Negative Standing Flexion Test Results Negative Compression Test Results Negative A-P Shearing Test Results Positive L Straight Leg Raise Test Results L HS tightness at 45? Slump Test Results Negative Hip Special Tests Piriformis Test Results Positive L ROCIO Test Results Negative PT-OP-M Strength Start: 11/19/20 17:28 Freq: Status: Active Protocol: Document 11/19/20 16:00 DCW (Rec: 11/19/20 17:47 DCW [id number]) Hip Strength Hip Manual Muscle Testing Right Flexion (L2) 5 Normal Abduction 5 Normal Adduction 5 Normal External Rotation 5 Normal Internal Rotation 5 Normal Left Flexion (L2) 5 Normal Abduction 5 Normal Adduction 5 Normal External Rotation 5 Normal Internal Rotation 5 Normal Knee Strength Knee Manual Muscle Testing Right Flexion (S2) 5 Normal Extension (L3) 5 Normal Left Flexion (S2) 5 Normal Extension (L3) 5 Normal PT-OP-Q Treatments Start: 11/19/20 17:28 Freq: Status: Active Protocol: Document 12/04/20 16:45 DCW (Rec: 12/04/20 17:21 DCW [id number]) Gym Equipment Therapeutic Ball 1 Exercise Details Low Trunk Rotations Ball Size/Color Red - 55 cm Body Position Supine Therapeutic Exercises Supine Exercises 3 Supine Exercise Name ITB Stretch Side bilateral 2 Supine Exercise Name Piriformis stretch - knee to opposite shoulder Side bilateral 1 Supine Exercise Name HS stretch Side bilateral Manual Therapy Treatment Soft Tissue Mobilization L piriformis Mobilization Type Sustained Pressure,Trigger Point Release Intensity/Depth Moderate Body Position Sidelying Comments significant tenderness noted Upper Gluteals Body Location Upper Gluteal Mobilization Type Strumming Body Position Prone L sacral border Body Location L Sacral Border Mobilization Type Strumming,Other Body Position Prone Comments Circles along sacral border PT-OP-R Modalities Start: 11/19/20 17:28 Freq: Status: Active Protocol: Document 12/04/20 16:45 DCW (Rec: 12/04/20 17:21 DCW [id number]) Electric Stimulation Electric Stimulation Interferential Current (IFC) Body Location Low back Duration (Minutes) 15 Cycle Continuous Patient Position Prone Combined With Heat/Cold Hot Pack PT-OP-T Assessment and Plan Start: 11/19/20 17:28 Freq: Status: Active Protocol: Document 12/04/20 16:45 DCW (Rec: 12/04/20 17:21 DCW [id number]) Physical Therapy Assessment Impairments Impairments Activity Tolerance,Functional Activities,Functional Mobility ,ROM,Soft Tissue Mobility Goals Three Impairment Pt scores 30% disability on the Modified Oswestry Questionnaire Usp Goal (LTG) Pt to demonstrate improved functionality by scoring <15% disability on the Modified Oswestry LTG Duration 01/19/21 Two Impairment Pt experiences severe back pain driving longer than one hour Parking Meter Servicer Goal (LTG) Pt to tolerate driving 5 hours without increased back pain with two stops to improve his quality of life when traveling to [place] for any future job training. LTG Duration 01/19/21 One Impairment Pt does not have an appropriate home exercise program Short Term Goal (STG) Pt to be independent and compliant with an appropriate HEP STG Duration 12/19/20 Assessment Summary Assessment Pt appeared to benefit from e- stim last week, lest pain overall, agreeable to continued e-stim treatment. Physical Therapy Plan Frequency and Duration Frequency of Treatment 2x/Week Duration of Treatment Two months Plan of Care Start Date 11/19/20 Plan of Care End Date 01/19/21 Therapeutic Interventions Therapeutic Interventions Home Exercise Program,Joint Mobilizations,Neuromuscular Re -education,Patient/Caregiver Education,Self-Care/Home Management,Soft Tissue Mobilization,Therapeutic Activities,Therapeutic Exercises Modalities Cold Pack/Ice Massage,Electric Stimulation,Hot Packs, Ultrasound Next Visit Focus/Plan Next Note Type Treatment Note Next Visit Plan STM, Flexibility training
--- NOTE | 2020-12-14 16:18 | PT.OTN ---
Current Diagnoses Strain of muscle, fascia and tendon of lower back, subsequent encounter (12/14/20) Physical Therapy Treatment Note PT-OP-A Visit Information Start: 11/19/20 17:28 Freq: Status: Active Protocol: Document 12/14/20 15:30 MA (Rec: 12/14/20 16:17 MA [id number]) Out-Patient Physical Therapy Visit Information Visit Information Visit Type Treatment Note Visit Start Time 15:30 Visit Stop Time 16:20 Total Visit Minutes 50 Visit Number 5 Number of RESEARCH QUALITY ASSURANCE ANALYST Visits 1 PT-OP-B Current Condition Start: 11/19/20 17:28 Freq: Status: Active Protocol: Document 11/19/20 16:00 DCW (Rec: 11/19/20 17:41 DCW [id number]) Current Condition History of Current Condition Onset Date Greater than one year history Current Complaints Low back pain L>R History of Current Condition Pt is a 55 year old male presenting with a year+ history of low back pain following a workplace injury after he spend a long day lifting heavy boxes. Pt was seen at this clinic beginning 10/20/19 following his injury, got some relief, but notes today that it has never gone away. Has switched jobs multiple times since then, and now has a much less physically demanding job. Still has significant difficulty due to his back. Notes he had to drive to [place] a few weeks ago, and it almost killed me. Notes by the time he drove for 1 hour, he was having a lot of pain, and it continued to worsen over the next four hours until he got to his destination. Reports his pain always worsens as the day goes on. Admits he has had to pretty much give up all his hobbies, like riding 4- wheelers. Prior Treatments and Tests 06/20/20 MRI notes Scralization of L5, as well as multilevel DDD and foraminal narrowing PT-OP-C Subjective Start: 11/19/20 17:28 Freq: Status: Active Protocol: Document 12/14/20 15:30 MA (Rec: 12/14/20 16:17 MA [id number]) OP-PT Subjective Patient Comments Patient Comments Pt reports still having some back pain. He was lifting empty 55 lb oil drums today. PT-OP-F Manual Assessment Start: 11/19/20 17:28 Freq: Status: Active Protocol: Document 11/19/20 16:00 DCW (Rec: 11/19/20 17:41 DCW [id number]) Manual Assessments Soft Tissue Assessment Soft Tissue Mobility Assessment Moderate tone with tenderness to palpation 3/4: Wincing and withdraw along left QL, Piriformis, and Psoas Mild tone with tenderness to palpation 2/4: Pain with wincing along right QL, Piriformis, and Psoas PT-OP-K Range of Motion Start: 11/19/20 17:28 Freq: Status: Active Protocol: Document 11/19/20 16:00 DCW (Rec: 11/19/20 17:47 DCW [id number]) Lumbar Spine Range of Motion Lumbar Spine Active Degrees Testing Position Standing Flexion 70 Extension 15 Lateral Flexion Left 52 Lateral Flexion Right 47 Comments Lateral flexion measured in cm from fingertips to floor PT-OP-L Special Tests Start: 11/19/20 17:28 Freq: Status: Active Protocol: Document 11/19/20 16:00 DCW (Rec: 11/19/20 17:47 DCW [id number]) Special Tests Lumbar Spine Special Tests Lateral Compression Test Results Negative Vertical Spine Loading Test Results Negative Standing Flexion Test Results Negative Compression Test Results Negative A-P Shearing Test Results Positive L Straight Leg Raise Test Results L HS tightness at 45? Slump Test Results Negative Hip Special Tests Piriformis Test Results Positive L ROCIO Test Results Negative PT-OP-M Strength Start: 11/19/20 17:28 Freq: Status: Active Protocol: Document 11/19/20 16:00 DCW (Rec: 11/19/20 17:47 DCW [id number]) Hip Strength Hip Manual Muscle Testing Right Flexion (L2) 5 Normal Abduction 5 Normal Adduction 5 Normal External Rotation 5 Normal Internal Rotation 5 Normal Left Flexion (L2) 5 Normal Abduction 5 Normal Adduction 5 Normal External Rotation 5 Normal Internal Rotation 5 Normal Knee Strength Knee Manual Muscle Testing Right Flexion (S2) 5 Normal Extension (L3) 5 Normal Left Flexion (S2) 5 Normal Extension (L3) 5 Normal PT-OP-Q Treatments Start: 11/19/20 17:28 Freq: Status: Active Protocol: Document 12/14/20 15:30 MA (Rec: 12/14/20 16:17 MA [id number]) Gym Equipment Therapeutic Ball 1 Exercise Details Low Trunk Rotations Ball Size/Color Red - 55 cm Body Position Supine Therapeutic Exercises Supine Exercises TrA Supine Exercise Name supine 90-90 marching Side bilateral Reps/Minutes 20x Comments cues for TrA activation- added to HEP 3 Supine Exercise Name ITB Stretch Side bilateral 2 Supine Exercise Name Piriformis stretch - knee to opposite shoulder Side bilateral 1 Supine Exercise Name HS stretch Side bilateral Manual Therapy Treatment Soft Tissue Mobilization L piriformis Mobilization Type Sustained Pressure,Trigger Point Release Intensity/Depth Moderate Body Position Sidelying Comments significant tenderness noted Upper Gluteals Body Location Upper Gluteal Mobilization Type Strumming Body Position Prone L sacral border Body Location L Sacral Border Mobilization Type Strumming,Other Body Position Prone Comments Circles along sacral border PT-OP-R Modalities Start: 11/19/20 17:28 Freq: Status: Active Protocol: Document 12/14/20 15:30 MA (Rec: 12/14/20 16:17 MA [id number]) Electric Stimulation Electric Stimulation Interferential Current (IFC) Body Location Low back Duration (Minutes) 15 Cycle Continuous Patient Position Prone Combined With Heat/Cold Hot Pack PT-OP-T Assessment and Plan Start: 11/19/20 17:28 Freq: Status: Active Protocol: Document 12/14/20 15:30 MA (Rec: 12/14/20 16:17 MA [id number]) Physical Therapy Assessment Goals Three Impairment Pt scores 30% disability on the Modified Oswestry Questionnaire Mcfp Goal (LTG) Pt to demonstrate improved functionality by scoring <15% disability on the Modified Oswestry LTG Duration 01/19/21 Two Impairment Pt experiences severe back pain driving longer than one hour Gum Machine Operator Goal (LTG) Pt to tolerate driving 5 hours without increased back pain with two stops to improve his quality of life when traveling to [place] for any future job training. LTG Duration 01/19/21 One Impairment Pt does not have an appropriate home exercise program Short Term Goal (STG) Pt to be independent and compliant with an appropriate HEP STG Duration 12/19/20 Assessment Summary Assessment Magdaelno is able to show good core activation during LTR with legs on andorran ball. Added supine 90/90 marching to HEP for TrA awareness and LTR without andorran ball for lumbar rotation stretch. Ended with e -stim as pt feels it helps give him relief from LBP. Physical Therapy Plan Frequency and Duration Frequency of Treatment 2x/Week Duration of Treatment Two months Plan of Care Start Date 11/19/20 Plan of Care End Date 01/19/21 Therapeutic Interventions Therapeutic Interventions Home Exercise Program,Joint Mobilizations,Neuromuscular Re -education,Patient/Caregiver Education,Self-Care/Home Management,Soft Tissue Mobilization,Therapeutic Activities,Therapeutic Exercises Modalities Cold Pack/Ice Massage,Electric Stimulation,Hot Packs, Ultrasound Next Visit Focus/Plan Next Note Type Treatment Note Next Visit Plan Review new HEP and assess lifting mechanics STM, Flexibility training, end with IFC
--- NOTE | 2020-12-18 17:22 | PT.OTN ---
Current Diagnoses Strain of muscle, fascia and tendon of lower back, subsequent encounter (12/18/20) Physical Therapy Treatment Note PT-OP-A Visit Information Start: 11/19/20 17:28 Freq: Status: Active Protocol: Document 12/18/20 16:45 DCW (Rec: 12/18/20 17:22 DCW [id number]) Out-Patient Physical Therapy Visit Information Visit Information Visit Type Treatment Note Visit Start Time 16:45 Visit Stop Time 17:30 Total Visit Minutes 45 Visit Number 6 Number of FAX MACHINE OPERATOR Visits 0 Evaluation Information Evaluation Date 11/19/20 PT-OP-B Current Condition Start: 11/19/20 17:28 Freq: Status: Active Protocol: Document 11/19/20 16:00 DCW (Rec: 11/19/20 17:41 DCW [id number]) Current Condition History of Current Condition Onset Date Greater than one year history Current Complaints Low back pain L>R History of Current Condition Pt is a 55 year old male presenting with a year+ history of low back pain following a workplace injury after he spend a long day lifting heavy boxes. Pt was seen at this clinic beginning 10/20/19 following his injury, got some relief, but notes today that it has never gone away. Has switched jobs multiple times since then, and now has a much less physically demanding job. Still has significant difficulty due to his back. Notes he had to drive to [place] a few weeks ago, and it almost killed me. Notes by the time he drove for 1 hour, he was having a lot of pain, and it continued to worsen over the next four hours until he got to his destination. Reports his pain always worsens as the day goes on. Admits he has had to pretty much give up all his hobbies, like riding 4- wheelers. Prior Treatments and Tests 06/20/20 MRI notes Scralization of L5, as well as multilevel DDD and foraminal narrowing PT-OP-C Subjective Start: 11/19/20 17:28 Freq: Status: Active Protocol: Document 12/18/20 16:45 DCW (Rec: 12/18/20 17:22 DCW [id number]) OP-PT Subjective Patient Comments Patient Comments It just depends what I'm doing. If I'm not doing a lot, and can take it easy, it's not too bad. PT-OP-F Manual Assessment Start: 11/19/20 17:28 Freq: Status: Active Protocol: Document 11/19/20 16:00 DCW (Rec: 11/19/20 17:41 DCW [id number]) Manual Assessments Soft Tissue Assessment Soft Tissue Mobility Assessment Moderate tone with tenderness to palpation 3/4: Wincing and withdraw along left QL, Piriformis, and Psoas Mild tone with tenderness to palpation 2/4: Pain with wincing along right QL, Piriformis, and Psoas PT-OP-K Range of Motion Start: 11/19/20 17:28 Freq: Status: Active Protocol: Document 11/19/20 16:00 DCW (Rec: 11/19/20 17:47 DCW [id number]) Lumbar Spine Range of Motion Lumbar Spine Active Degrees Testing Position Standing Flexion 70 Extension 15 Lateral Flexion Left 52 Lateral Flexion Right 47 Comments Lateral flexion measured in cm from fingertips to floor PT-OP-L Special Tests Start: 11/19/20 17:28 Freq: Status: Active Protocol: Document 11/19/20 16:00 DCW (Rec: 11/19/20 17:47 DCW [id number]) Special Tests Lumbar Spine Special Tests Lateral Compression Test Results Negative Vertical Spine Loading Test Results Negative Standing Flexion Test Results Negative Compression Test Results Negative A-P Shearing Test Results Positive L Straight Leg Raise Test Results L HS tightness at 45? Slump Test Results Negative Hip Special Tests Piriformis Test Results Positive L ROCIO Test Results Negative PT-OP-M Strength Start: 11/19/20 17:28 Freq: Status: Active Protocol: Document 11/19/20 16:00 DCW (Rec: 11/19/20 17:47 DCW [id number]) Hip Strength Hip Manual Muscle Testing Right Flexion (L2) 5 Normal Abduction 5 Normal Adduction 5 Normal External Rotation 5 Normal Internal Rotation 5 Normal Left Flexion (L2) 5 Normal Abduction 5 Normal Adduction 5 Normal External Rotation 5 Normal Internal Rotation 5 Normal Knee Strength Knee Manual Muscle Testing Right Flexion (S2) 5 Normal Extension (L3) 5 Normal Left Flexion (S2) 5 Normal Extension (L3) 5 Normal PT-OP-Q Treatments Start: 11/19/20 17:28 Freq: Status: Active Protocol: Document 12/18/20 16:45 DCW (Rec: 12/18/20 17:22 DCW [id number]) Therapeutic Exercises Supine Exercises 3 Supine Exercise Name ITB Stretch Side bilateral 2 Supine Exercise Name Piriformis stretch - knee to opposite shoulder Side bilateral 1 Supine Exercise Name HS stretch Side bilateral Manual Therapy Treatment Soft Tissue Mobilization L piriformis Mobilization Type Sustained Pressure,Trigger Point Release Intensity/Depth Moderate Body Position Sidelying Comments significant tenderness noted Upper Gluteals Body Location Upper Gluteal Mobilization Type Strumming Body Position Prone L sacral border Body Location L Sacral Border Mobilization Type Strumming,Other Body Position Prone Comments Circles along sacral border PT-OP-R Modalities Start: 11/19/20 17:28 Freq: Status: Active Protocol: Document 12/18/20 16:45 DCW (Rec: 12/18/20 17:22 DCW [id number]) Electric Stimulation Electric Stimulation Interferential Current (IFC) Body Location Low back Duration (Minutes) 15 Cycle Continuous Patient Position Prone Combined With Heat/Cold Hot Pack PT-OP-T Assessment and Plan Start: 11/19/20 17:28 Freq: Status: Active Protocol: Document 12/18/20 16:45 DCW (Rec: 12/18/20 17:22 DCW [id number]) Physical Therapy Assessment Impairments Impairments Activity Tolerance,Functional Activities,Functional Mobility ,ROM,Soft Tissue Mobility Goals Three Impairment Pt scores 30% disability on the Modified Oswestry Questionnaire Detention Goal (LTG) Pt to demonstrate improved functionality by scoring <15% disability on the Modified Oswestry LTG Duration 01/19/21 Two Impairment Pt experiences severe back pain driving longer than one hour Detention Goal (LTG) Pt to tolerate driving 5 hours without increased back pain with two stops to improve his quality of life when traveling to [place] for any future job training. LTG Duration 01/19/21 One Impairment Pt does not have an appropriate home exercise program Short Term Goal (STG) Pt to be independent and compliant with an appropriate HEP STG Duration 12/19/20 Assessment Summary Assessment Pt showing some improvement, although still has significant tone and tenderness along left QL. Physical Therapy Plan Frequency and Duration Frequency of Treatment 2x/Week Duration of Treatment Two months Plan of Care Start Date 11/19/20 Plan of Care End Date 01/19/21 Therapeutic Interventions Therapeutic Interventions Home Exercise Program,Joint Mobilizations,Neuromuscular Re -education,Patient/Caregiver Education,Self-Care/Home Management,Soft Tissue Mobilization,Therapeutic Activities,Therapeutic Exercises Modalities Cold Pack/Ice Massage,Electric Stimulation,Hot Packs, Ultrasound Next Visit Focus/Plan Next Note Type Treatment Note Next Visit Plan Review new HEP and assess lifting mechanics STM, Flexibility training, end with IFC
--- NOTE | 2020-12-20 17:53 | PT.OTN ---
Current Diagnoses Strain of muscle, fascia and tendon of lower back, subsequent encounter (12/20/20) Physical Therapy Treatment Note PT-OP-A Visit Information Start: 11/19/20 17:28 Freq: Status: Active Protocol: Document 12/20/20 16:50 [facility] (Rec: 12/20/20 17:53 [facility] [id number]) Out-Patient Physical Therapy Visit Information Visit Information Visit Type Treatment Note Visit Start Time 16:47 Visit Stop Time 17:43 Total Visit Minutes 56 Visit Number 7 Number of HAND COOPER HELPER Visits 0 PT-OP-B Current Condition Start: 11/19/20 17:28 Freq: Status: Active Protocol: Document 11/19/20 16:00 DCW (Rec: 11/19/20 17:41 DCW [id number]) Current Condition History of Current Condition Onset Date Greater than one year history Current Complaints Low back pain L>R History of Current Condition Pt is a 55 year old male presenting with a year+ history of low back pain following a workplace injury after he spend a long day lifting heavy boxes. Pt was seen at this clinic beginning 10/20/19 following his injury, got some relief, but notes today that it has never gone away. Has switched jobs multiple times since then, and now has a much less physically demanding job. Still has significant difficulty due to his back. Notes he had to drive to [place] a few weeks ago, and it almost killed me. Notes by the time he drove for 1 hour, he was having a lot of pain, and it continued to worsen over the next four hours until he got to his destination. Reports his pain always worsens as the day goes on. Admits he has had to pretty much give up all his hobbies, like riding 4- wheelers. Prior Treatments and Tests 06/20/20 MRI notes Scralization of L5, as well as multilevel DDD and foraminal narrowing PT-OP-C Subjective Start: 11/19/20 17:28 Freq: Status: Active Protocol: Document 12/20/20 16:50 [facility] (Rec: 12/20/20 17:53 [facility] [id number]) OP-PT Subjective Patient Comments Patient Comments Pt reports he does a lot of climbing stairs and ladders and his back is sore. PT-OP-F Manual Assessment Start: 11/19/20 17:28 Freq: Status: Active Protocol: Document 11/19/20 16:00 DCW (Rec: 11/19/20 17:41 DCW [id number]) Manual Assessments Soft Tissue Assessment Soft Tissue Mobility Assessment Moderate tone with tenderness to palpation 3/4: Wincing and withdraw along left QL, Piriformis, and Psoas Mild tone with tenderness to palpation 2/4: Pain with wincing along right QL, Piriformis, and Psoas PT-OP-K Range of Motion Start: 11/19/20 17:28 Freq: Status: Active Protocol: Document 11/19/20 16:00 DCW (Rec: 11/19/20 17:47 DCW [id number]) Lumbar Spine Range of Motion Lumbar Spine Active Degrees Testing Position Standing Flexion 70 Extension 15 Lateral Flexion Left 52 Lateral Flexion Right 47 Comments Lateral flexion measured in cm from fingertips to floor PT-OP-L Special Tests Start: 11/19/20 17:28 Freq: Status: Active Protocol: Document 11/19/20 16:00 DCW (Rec: 11/19/20 17:47 DCW [id number]) Special Tests Lumbar Spine Special Tests Lateral Compression Test Results Negative Vertical Spine Loading Test Results Negative Standing Flexion Test Results Negative Compression Test Results Negative A-P Shearing Test Results Positive L Straight Leg Raise Test Results L HS tightness at 45? Slump Test Results Negative Hip Special Tests Piriformis Test Results Positive L ROCIO Test Results Negative PT-OP-M Strength Start: 11/19/20 17:28 Freq: Status: Active Protocol: Document 11/19/20 16:00 DCW (Rec: 11/19/20 17:47 DCW [id number]) Hip Strength Hip Manual Muscle Testing Right Flexion (L2) 5 Normal Abduction 5 Normal Adduction 5 Normal External Rotation 5 Normal Internal Rotation 5 Normal Left Flexion (L2) 5 Normal Abduction 5 Normal Adduction 5 Normal External Rotation 5 Normal Internal Rotation 5 Normal Knee Strength Knee Manual Muscle Testing Right Flexion (S2) 5 Normal Extension (L3) 5 Normal Left Flexion (S2) 5 Normal Extension (L3) 5 Normal PT-OP-Q Treatments Start: 11/19/20 17:28 Freq: Status: Active Protocol: Document 12/20/20 16:50 [facility] (Rec: 12/20/20 17:53 [facility] [id number]) Therapeutic Exercises Supine Exercises pelvic tilts Reps/Minutes 20 Comments cues for not lifting shoulders & neck LTR Side bilateral Reps/Minutes 15 Comments cues for core TrA Supine Exercise Name supine 90-90 marching Side bilateral Reps/Minutes 20x Comments cues for TrA activation- reviewed HEP-cues needed for back psoition during 3 Supine Exercise Name ITB Stretch Side bilateral Reps/Minutes 30 sec ea 2 Supine Exercise Name Piriformis stretch - knee to opposite shoulder Side bilateral Reps/Minutes 30 sec ea 1 Supine Exercise Name HS stretch Side bilateral Reps/Minutes 30 sec ea Other Exercises yao pose Side bilateral Reps/Minutes 30 sec cat/camel Reps/Minutes 15 Manual Therapy Treatment Soft Tissue Mobilization L piriformis Mobilization Type Sustained Pressure,Trigger Point Release Intensity/Depth Moderate Body Position Sidelying Comments w/ER/IR Joint Mobilizations hip Joint L Direction ER hip on axis FM sacrum Joint caudal and L UPA FM SIJ Joint L innominate Direction ER FM PT-OP-R Modalities Start: 11/19/20 17:28 Freq: Status: Active Protocol: Document 12/20/20 16:50 [facility] (Rec: 12/20/20 17:53 [facility] [id number]) Electric Stimulation Electric Stimulation Interferential Current (IFC) Body Location Low back Duration (Minutes) 15 Cycle Continuous Patient Position Prone Combined With Heat/Cold Hot Pack PT-OP-T Assessment and Plan Start: 11/19/20 17:28 Freq: Status: Active Protocol: Document 12/20/20 16:50 [facility] (Rec: 12/20/20 17:53 [facility] [id number]) Physical Therapy Assessment Goals Three Impairment Pt scores 30% disability on the Modified Oswestry Questionnaire Quality Intern Goal (LTG) Pt to demonstrate improved functionality by scoring <15% disability on the Modified Oswestry LTG Duration 01/19/21 Two Impairment Pt experiences severe back pain driving longer than one hour Custodial Goal (LTG) Pt to tolerate driving 5 hours without increased back pain with two stops to improve his quality of life when traveling to [place] for any future job training. LTG Duration 01/19/21 One Impairment Pt does not have an appropriate home exercise program Short Term Goal (STG) Pt to be independent and compliant with an appropriate HEP STG Duration 12/19/20 Assessment Summary Assessment Pt did well with his stretches but still requires cues for all core activiation exercises and ones for lumbar motion. Improved L hip rotation w/mobs & STM Physical Therapy Plan Frequency and Duration Frequency of Treatment 2x/Week Duration of Treatment Two months Plan of Care Start Date 11/19/20 Plan of Care End Date 01/19/21 Next Visit Focus/Plan Next Note Type Treatment Note Next Visit Plan review core exercises and progress as pt able-cont to workon lumbar spine motion, cont to work w/STM & jt mobs, end w/IFC
--- NOTE | 2020-12-24 17:02 | PT-OP ANOTE ---
Pt no showed. Called and left VM for next appt
--- NOTE | 2020-12-26 17:26 | PT.OTN ---
Current Diagnoses Strain of muscle, fascia and tendon of lower back, subsequent encounter (12/26/20) Physical Therapy Treatment Note PT-OP-A Visit Information Start: 11/19/20 17:28 Freq: Status: Active Protocol: Document 12/26/20 16:35 DCW (Rec: 12/26/20 17:25 DCW [id number]) Out-Patient Physical Therapy Visit Information Visit Information Visit Type Treatment Note Visit Start Time 16:35 Visit Stop Time 17:30 Total Visit Minutes 55 Visit Number 8 Number of CLINICAL PSYCHIATRIST Visits 0 Evaluation Information Evaluation Date 11/19/20 PT-OP-B Current Condition Start: 11/19/20 17:28 Freq: Status: Active Protocol: Document 11/19/20 16:00 DCW (Rec: 11/19/20 17:41 DCW [id number]) Current Condition History of Current Condition Onset Date Greater than one year history Current Complaints Low back pain L>R History of Current Condition Pt is a 55 year old male presenting with a year+ history of low back pain following a workplace injury after he spend a long day lifting heavy boxes. Pt was seen at this clinic beginning 10/20/19 following his injury, got some relief, but notes today that it has never gone away. Has switched jobs multiple times since then, and now has a much less physically demanding job. Still has significant difficulty due to his back. Notes he had to drive to [place] a few weeks ago, and it almost killed me. Notes by the time he drove for 1 hour, he was having a lot of pain, and it continued to worsen over the next four hours until he got to his destination. Reports his pain always worsens as the day goes on. Admits he has had to pretty much give up all his hobbies, like riding 4- wheelers. Prior Treatments and Tests 06/20/20 MRI notes Scralization of L5, as well as multilevel DDD and foraminal narrowing PT-OP-C Subjective Start: 11/19/20 17:28 Freq: Status: Active Protocol: Document 12/26/20 16:35 DCW (Rec: 12/26/20 17:25 DCW [id number]) OP-PT Subjective Patient Comments Patient Comments Still a little sore. Notes he feels a little better sometimes. PT-OP-F Manual Assessment Start: 11/19/20 17:28 Freq: Status: Active Protocol: Document 11/19/20 16:00 DCW (Rec: 11/19/20 17:41 DCW [id number]) Manual Assessments Soft Tissue Assessment Soft Tissue Mobility Assessment Moderate tone with tenderness to palpation 3/4: Wincing and withdraw along left QL, Piriformis, and Psoas Mild tone with tenderness to palpation 2/4: Pain with wincing along right QL, Piriformis, and Psoas PT-OP-K Range of Motion Start: 11/19/20 17:28 Freq: Status: Active Protocol: Document 11/19/20 16:00 DCW (Rec: 11/19/20 17:47 DCW [id number]) Lumbar Spine Range of Motion Lumbar Spine Active Degrees Testing Position Standing Flexion 70 Extension 15 Lateral Flexion Left 52 Lateral Flexion Right 47 Comments Lateral flexion measured in cm from fingertips to floor PT-OP-L Special Tests Start: 11/19/20 17:28 Freq: Status: Active Protocol: Document 11/19/20 16:00 DCW (Rec: 11/19/20 17:47 DCW [id number]) Special Tests Lumbar Spine Special Tests Lateral Compression Test Results Negative Vertical Spine Loading Test Results Negative Standing Flexion Test Results Negative Compression Test Results Negative A-P Shearing Test Results Positive L Straight Leg Raise Test Results L HS tightness at 45? Slump Test Results Negative Hip Special Tests Piriformis Test Results Positive L ROCIO Test Results Negative PT-OP-M Strength Start: 11/19/20 17:28 Freq: Status: Active Protocol: Document 11/19/20 16:00 DCW (Rec: 11/19/20 17:47 DCW [id number]) Hip Strength Hip Manual Muscle Testing Right Flexion (L2) 5 Normal Abduction 5 Normal Adduction 5 Normal External Rotation 5 Normal Internal Rotation 5 Normal Left Flexion (L2) 5 Normal Abduction 5 Normal Adduction 5 Normal External Rotation 5 Normal Internal Rotation 5 Normal Knee Strength Knee Manual Muscle Testing Right Flexion (S2) 5 Normal Extension (L3) 5 Normal Left Flexion (S2) 5 Normal Extension (L3) 5 Normal PT-OP-Q Treatments Start: 11/19/20 17:28 Freq: Status: Active Protocol: Document 12/26/20 16:35 DCW (Rec: 12/26/20 17:25 DCW [id number]) Therapeutic Exercises Supine Exercises 3 Supine Exercise Name ITB Stretch Side bilateral 2 Supine Exercise Name Piriformis stretch - knee to opposite shoulder Side bilateral 1 Supine Exercise Name HS stretch Side bilateral Manual Therapy Treatment Soft Tissue Mobilization L piriformis Mobilization Type Sustained Pressure,Trigger Point Release Intensity/Depth Moderate Body Position Sidelying Comments significant tenderness noted Upper Gluteals Body Location Upper Gluteal Mobilization Type Strumming Body Position Prone L sacral border Body Location L Sacral Border Mobilization Type Strumming,Other Body Position Prone Comments Circles along sacral border PT-OP-R Modalities Start: 11/19/20 17:28 Freq: Status: Active Protocol: Document 12/26/20 16:35 DCW (Rec: 12/26/20 17:25 DCW [id number]) Electric Stimulation Electric Stimulation Interferential Current (IFC) Body Location Low back Duration (Minutes) 15 Cycle Continuous Patient Position Prone Combined With Heat/Cold Hot Pack PT-OP-T Assessment and Plan Start: 11/19/20 17:28 Freq: Status: Active Protocol: Document 12/26/20 16:35 DCW (Rec: 12/26/20 17:25 DCW [id number]) Physical Therapy Assessment Impairments Impairments Activity Tolerance,Functional Activities,Functional Mobility ,ROM,Soft Tissue Mobility Goals Three Impairment Pt scores 30% disability on the Modified Oswestry Questionnaire Franchise Field Consultant Goal (LTG) Pt to demonstrate improved functionality by scoring <15% disability on the Modified Oswestry LTG Duration 01/19/21 Two Impairment Pt experiences severe back pain driving longer than one hour Franchise Field Consultant Goal (LTG) Pt to tolerate driving 5 hours without increased back pain with two stops to improve his quality of life when traveling to [place] for any future job training. LTG Duration 01/19/21 One Impairment Pt does not have an appropriate home exercise program Short Term Goal (STG) Pt to be independent and compliant with an appropriate HEP STG Duration 12/19/20 Assessment Summary Assessment Pt demonstrating less tenderness to palpation, admits to some compliance with HEP, notes his core exercises are really a workout. Physical Therapy Plan Frequency and Duration Frequency of Treatment 2x/Week Duration of Treatment Two months Plan of Care Start Date 11/19/20 Plan of Care End Date 01/19/21 Therapeutic Interventions Therapeutic Interventions Home Exercise Program,Joint Mobilizations,Neuromuscular Re -education,Patient/Caregiver Education,Self-Care/Home Management,Soft Tissue Mobilization,Therapeutic Activities,Therapeutic Exercises Modalities Cold Pack/Ice Massage,Electric Stimulation,Hot Packs, Ultrasound Next Visit Focus/Plan Next Note Type Treatment Note Next Visit Plan Review new HEP and assess lifting mechanics STM, Flexibility training, end with IFC
--- NOTE | 2020-12-31 17:19 | PT.OTN ---
Current Diagnoses Strain of muscle, fascia and tendon of lower back, subsequent encounter (12/31/20) Physical Therapy Treatment Note PT-OP-A Visit Information Start: 11/19/20 17:28 Freq: Status: Active Protocol: Document 12/31/20 16:45 DCW (Rec: 12/31/20 17:19 DCW [id number]) Out-Patient Physical Therapy Visit Information Visit Information Visit Type Treatment Note Visit Start Time 16:45 Visit Stop Time 17:30 Total Visit Minutes 45 Visit Number 9 Number of KNOTTING MACHINE OPERATOR Visits 0 Evaluation Information Evaluation Date 11/19/20 PT-OP-B Current Condition Start: 11/19/20 17:28 Freq: Status: Active Protocol: Document 11/19/20 16:00 DCW (Rec: 11/19/20 17:41 DCW [id number]) Current Condition History of Current Condition Onset Date Greater than one year history Current Complaints Low back pain L>R History of Current Condition Pt is a 55 year old male presenting with a year+ history of low back pain following a workplace injury after he spend a long day lifting heavy boxes. Pt was seen at this clinic beginning 10/20/19 following his injury, got some relief, but notes today that it has never gone away. Has switched jobs multiple times since then, and now has a much less physically demanding job. Still has significant difficulty due to his back. Notes he had to drive to [place] a few weeks ago, and it almost killed me. Notes by the time he drove for 1 hour, he was having a lot of pain, and it continued to worsen over the next four hours until he got to his destination. Reports his pain always worsens as the day goes on. Admits he has had to pretty much give up all his hobbies, like riding 4- wheelers. Prior Treatments and Tests 06/20/20 MRI notes Scralization of L5, as well as multilevel DDD and foraminal narrowing PT-OP-C Subjective Start: 11/19/20 17:28 Freq: Status: Active Protocol: Document 12/31/20 16:45 DCW (Rec: 12/31/20 17:19 DCW [id number]) OP-PT Subjective Patient Comments Patient Comments Pt reports he is real sore today, has not been able to come up with a reason for the increased pain, notes he has not done a lot. PT-OP-F Manual Assessment Start: 11/19/20 17:28 Freq: Status: Active Protocol: Document 11/19/20 16:00 DCW (Rec: 11/19/20 17:41 DCW [id number]) Manual Assessments Soft Tissue Assessment Soft Tissue Mobility Assessment Moderate tone with tenderness to palpation 3/4: Wincing and withdraw along left QL, Piriformis, and Psoas Mild tone with tenderness to palpation 2/4: Pain with wincing along right QL, Piriformis, and Psoas PT-OP-K Range of Motion Start: 11/19/20 17:28 Freq: Status: Active Protocol: Document 11/19/20 16:00 DCW (Rec: 11/19/20 17:47 DCW [id number]) Lumbar Spine Range of Motion Lumbar Spine Active Degrees Testing Position Standing Flexion 70 Extension 15 Lateral Flexion Left 52 Lateral Flexion Right 47 Comments Lateral flexion measured in cm from fingertips to floor PT-OP-L Special Tests Start: 11/19/20 17:28 Freq: Status: Active Protocol: Document 11/19/20 16:00 DCW (Rec: 11/19/20 17:47 DCW [id number]) Special Tests Lumbar Spine Special Tests Lateral Compression Test Results Negative Vertical Spine Loading Test Results Negative Standing Flexion Test Results Negative Compression Test Results Negative A-P Shearing Test Results Positive L Straight Leg Raise Test Results L HS tightness at 45? Slump Test Results Negative Hip Special Tests Piriformis Test Results Positive L ROCIO Test Results Negative PT-OP-M Strength Start: 11/19/20 17:28 Freq: Status: Active Protocol: Document 11/19/20 16:00 DCW (Rec: 11/19/20 17:47 DCW [id number]) Hip Strength Hip Manual Muscle Testing Right Flexion (L2) 5 Normal Abduction 5 Normal Adduction 5 Normal External Rotation 5 Normal Internal Rotation 5 Normal Left Flexion (L2) 5 Normal Abduction 5 Normal Adduction 5 Normal External Rotation 5 Normal Internal Rotation 5 Normal Knee Strength Knee Manual Muscle Testing Right Flexion (S2) 5 Normal Extension (L3) 5 Normal Left Flexion (S2) 5 Normal Extension (L3) 5 Normal PT-OP-Q Treatments Start: 11/19/20 17:28 Freq: Status: Active Protocol: Document 12/31/20 16:45 DCW (Rec: 12/31/20 17:19 DCW [id number]) Therapeutic Exercises Supine Exercises 3 Supine Exercise Name ITB Stretch Side bilateral 2 Supine Exercise Name Piriformis stretch - knee to opposite shoulder Side bilateral 1 Supine Exercise Name HS stretch Side bilateral Manual Therapy Treatment Soft Tissue Mobilization L piriformis Mobilization Type Sustained Pressure,Trigger Point Release Intensity/Depth Moderate Body Position Sidelying Comments significant tenderness noted Upper Gluteals Body Location Upper Gluteal Mobilization Type Strumming Body Position Prone L sacral border Body Location L Sacral Border Mobilization Type Strumming,Other Body Position Prone Comments Circles along sacral border PT-OP-R Modalities Start: 11/19/20 17:28 Freq: Status: Active Protocol: Document 12/31/20 16:45 DCW (Rec: 12/31/20 17:19 DCW [id number]) Electric Stimulation Electric Stimulation Interferential Current (IFC) Body Location Low back Duration (Minutes) 15 Cycle Continuous Patient Position Prone Combined With Heat/Cold Hot Pack PT-OP-T Assessment and Plan Start: 11/19/20 17:28 Freq: Status: Active Protocol: Document 12/31/20 16:45 DCW (Rec: 12/31/20 17:19 DCW [id number]) Physical Therapy Assessment Impairments Impairments Activity Tolerance,Functional Activities,Functional Mobility ,ROM,Soft Tissue Mobility Goals Three Impairment Pt scores 30% disability on the Modified Oswestry Questionnaire Credit Products Officer Goal (LTG) Pt to demonstrate improved functionality by scoring <15% disability on the Modified Oswestry LTG Duration 01/19/21 Two Impairment Pt experiences severe back pain driving longer than one hour Credit Products Officer Goal (LTG) Pt to tolerate driving 5 hours without increased back pain with two stops to improve his quality of life when traveling to [place] for any future job training. LTG Duration 01/19/21 One Impairment Pt does not have an appropriate home exercise program Short Term Goal (STG) Pt to be independent and compliant with an appropriate HEP STG Duration 12/19/20 Assessment Summary Assessment Pt displaying increased tightness with manual stretching today, especially left hamstring. Increased pain unable to be replicated during treatment today, unclear origin. Physical Therapy Plan Frequency and Duration Frequency of Treatment 2x/Week Duration of Treatment Two months Plan of Care Start Date 11/19/20 Plan of Care End Date 01/19/21 Therapeutic Interventions Therapeutic Interventions Home Exercise Program,Joint Mobilizations,Neuromuscular Re -education,Patient/Caregiver Education,Self-Care/Home Management,Soft Tissue Mobilization,Therapeutic Activities,Therapeutic Exercises Modalities Cold Pack/Ice Massage,Electric Stimulation,Hot Packs, Ultrasound Next Visit Focus/Plan Next Note Type Treatment Note Next Visit Plan Review new HEP and assess lifting mechanics STM, Flexibility training, end with IFC
--- NOTE | 2021-05-09 17:47 | PT.OPDS ---
Current Diagnoses Strain of muscle, fascia and tendon of lower back, subsequent encounter (12/31/20) Visit Care Team Role Provider Type Liliya Young MD Primary Care Provider Physician Specialty: Family Practice Address: [address] [place] [address], [address], [place], [address] Email: [email or web address] Darnell Raphael MD Attending Provider Physician Referring Provider Specialty: Orthopedic Surgery Address: [address] [place] [address], [place], [address] Email: Visit Number Visit Number 9 Discharge Summary PT-OP-B Current Condition Start: 11/19/20 17:28 Freq: Status: Active Protocol: Document 11/19/20 16:00 DCW (Rec: 11/19/20 17:41 DCW [id number]) Current Condition History of Current Condition Onset Date Greater than one year history Current Complaints Low back pain L>R History of Current Condition Pt is a 55 year old male presenting with a year+ history of low back pain following a workplace injury after he spend a long day lifting heavy boxes. Pt was seen at this clinic beginning 10/20/19 following his injury, got some relief, but notes today that it has never gone away. Has switched jobs multiple times since then, and now has a much less physically demanding job. Still has significant difficulty due to his back. Notes he had to drive to [place] a few weeks ago, and it almost killed me. Notes by the time he drove for 1 hour, he was having a lot of pain, and it continued to worsen over the next four hours until he got to his destination. Reports his pain always worsens as the day goes on. Admits he has had to pretty much give up all his hobbies, like riding 4- wheelers. Prior Treatments and Tests 06/20/20 MRI notes Scralization of L5, as well as multilevel DDD and foraminal narrowing PT-OP-C Subjective Start: 11/19/20 17:28 Freq: Status: Active Protocol: Document 12/31/20 16:45 DCW (Rec: 12/31/20 17:19 DCW [id number]) OP-PT Subjective Patient Comments Patient Comments Pt reports he is real sore today, has not been able to come up with a reason for the increased pain, notes he has not done a lot. PT-OP-F Manual Assessment Start: 11/19/20 17:28 Freq: Status: Active Protocol: Document 11/19/20 16:00 DCW (Rec: 11/19/20 17:41 DCW [id number]) Manual Assessments Soft Tissue Assessment Soft Tissue Mobility Assessment Moderate tone with tenderness to palpation 3/4: Wincing and withdraw along left QL, Piriformis, and Psoas Mild tone with tenderness to palpation 2/4: Pain with wincing along right QL, Piriformis, and Psoas PT-OP-K Range of Motion Start: 11/19/20 17:28 Freq: Status: Active Protocol: Document 11/19/20 16:00 DCW (Rec: 11/19/20 17:47 DCW [id number]) Lumbar Spine Range of Motion Lumbar Spine Active Degrees Testing Position Standing Flexion 70 Extension 15 Lateral Flexion Left 52 Lateral Flexion Right 47 Comments Lateral flexion measured in cm from fingertips to floor PT-OP-L Special Tests Start: 11/19/20 17:28 Freq: Status: Active Protocol: Document 11/19/20 16:00 DCW (Rec: 11/19/20 17:47 DCW [id number]) Special Tests Lumbar Spine Special Tests Lateral Compression Test Results Negative Vertical Spine Loading Test Results Negative Standing Flexion Test Results Negative Compression Test Results Negative A-P Shearing Test Results Positive L Straight Leg Raise Test Results L HS tightness at 45? Slump Test Results Negative Hip Special Tests Piriformis Test Results Positive L ROCIO Test Results Negative PT-OP-M Strength Start: 11/19/20 17:28 Freq: Status: Active Protocol: Document 11/19/20 16:00 DCW (Rec: 11/19/20 17:47 DCW [id number]) Hip Strength Hip Manual Muscle Testing Right Flexion (L2) 5 Normal Abduction 5 Normal Adduction 5 Normal External Rotation 5 Normal Internal Rotation 5 Normal Left Flexion (L2) 5 Normal Abduction 5 Normal Adduction 5 Normal External Rotation 5 Normal Internal Rotation 5 Normal Knee Strength Knee Manual Muscle Testing Right Flexion (S2) 5 Normal Extension (L3) 5 Normal Left Flexion (S2) 5 Normal Extension (L3) 5 Normal PT-OP-T Assessment and Plan Start: 11/19/20 17:28 Freq: Status: Active Protocol: Document 05/09/21 17:47 DCW (Rec: 05/09/21 17:47 [facility] [id number]) Physical Therapy Assessment Assessment Summary Assessment Pt has not been seen in more than four months, will be discharged from skilled therapy at this time. Pt will require a new referral in order to return to skilled therapy.
== END 2021-05-13 10:05 ==
LOC: PHYS 16:45
PROVIDERS: PCP Family Medicine; Referring Provider Orthopaedic Surgery; Visit Provider Orthopaedic Surgery
DX: S39.012D Strain of muscle, fascia and tendon of lower back, subsequent encounter (principal)
CPT/HCPCS: 97014; 97032; 97110; 97140; 97161; G0283

== ENCOUNTER → 2021-07-09 13:11 | Outpatient (CLI) | payer OTHER, SELFPAY ==
[2020-03-16 10:50] VITALS: BMI 24.4
[2021-07-09 14:41] LABS: COVID19 -Nasal RAPID Negative (Negative)
== END ==
PROVIDERS: PCP Family Medicine; Visit Provider Physical Medicine & Rehabilitation
DX: Z20.822 Contact with and (suspected) exposure to COVID-19 (principal)
CPT/HCPCS: 87635; C9803

== ENCOUNTER 2021-07-11 07:54 | Outpatient (CLI) | payer OTHER, SELFPAY ==
[2020-03-16 10:50] VITALS: BMI 24.4
[2021-07-11] VITALS (9 sets, daily range): BP systolic 122–161; BP diastolic 66–100; PULSE 58–70; RESP 13–21; TEMP 37.2; O2SAT 96–100
--- NOTE | 2021-07-11 08:30 | DI.RAD.S_ITS ---
PROCEDURE: PAIN SI JOINT INJECTION INDICATIONS: SACROILIAC DISORDER COMPARISON: CR, XR LUMBAR SPINE 2-3V, 10/04/2019, 12:02. [facility], MR, MR LUMBAR SPINE WO CON, 06/20/2020, 18:08. FINDINGS: Fluoroscopic spot filming was performed to verify placement of spinal needles at the left SI level(s), as labeled on the films. Appropriate location(s) of the needle tip(s) was confirmed by injection of iodinated contrast. IMPRESSION: Fluoroscopy for pain management. Dictated by: Tae Guzman M.D. on 07/11/2021 at 9:32 Approved by: Tae Guzman M.D. on 07/11/2021 at 9:33
[2021-07-11] MEDS: BETAMETHASONE 30 MG/5 ML MDV 12 MG INJ (09:06)
[2021-07-11] MEDS: IOPAMIDOL 15 ML VIAL 3 ML INJ (09:06)
[2021-07-11] MEDS: BUPIVACAINE 0.5% (PF) VIAL 2 ML INJ (09:06)
[2021-07-11] MEDS: MIDAZOLAM 2 MG/2 ML VIAL IV (09:09)
--- NOTE | 2021-07-11 09:18 | PM.PROC.IR.1 ---
Date/Time/Diagnoses Date of procedure: 07/11/21 Time of procedure: 09:18 Pre-procedure diagnosis: Sacroiliac Joint Pain/DJD Post-procedure diagnosis: same Procedure Notes Procedure: Fluoroscopically guided contrast controlled left sacroiliac joint injection Indications: Magdaleno is referred by Dr. Young for treatment of left sacroiliac joint DJD Physician: Vicente Lange Total Fluoroscopy time (seconds): 8 Total sedation minutes: 9 Complications: none Procedure in detail & Post-procedure care: DESCRIPTION OF PROCEDURE Fluoroscopic guided, contrast controlled left sacroiliac joint injection Following review of allergies and review of potential side effects and complications, including, but not necessarily limited to, infection, allergic reaction, local tissue breakdown, temporary as well as permanent nerve injury, paralysis, stroke and possible , the patient indicated that they understood and agreed to proceed. An informed consent was signed by the patient, witnessed by a nurse, and placed in the patient's chart. Additionally, other treatment options including modalities, medications, and physical therapy were reviewed with the patient. After review of previous anaesthesic history and IV conscious sedation the patient was deemed safe to proceed with today?s procedure with IV conscious sedation as ASA class II designation. Safety time-out was performed to confirm patient ID, procedure to be performed and site of procedure. IV sedation was accomplished with a combination of 4mg of Versed administered by the RN after DO order, titrated to patient comfort during the course of the procedure while the patient remained responsive to all verbal commands. In the prone position following sterile prep and drape of the pelvic region, the hyper lucency on in the inferior aspect of the left sacroiliac joint was identified fluoroscopically the skin was anesthetized be a 25 gauge 1 eventual with approximately 2cc of 1% lidocaine solution. At this point, a 22 gauge 3inch spinal needle was atraumatically introduced and advanced under fluoroscopic guidance into the inferior aspect of the left sacroiliac joint. Following negative aspiration, approximately 0.3cc of Isovue-300 was injected confirming intra-articular placement without vascular uptake. Radiographic data, including multiple fluoroscopic views of the pelvis, reveals a spinal needle in the left sacroiliac joint hyper lucent zone. Subsequent view show flow contrast tear superiorly and inferiorly within the joint capsule without vascular intrathecal uptake. At this point a total of 1cc or 0.5% Marcaine was combined with 1cc of 6mg of betamethasone was injected without incident. The patient tolerated the procedure well without signs or symptoms of complications prior to transfer to the recovery area for further monitoring. The patient was then transferred to the recovery area with a bur observed for an appropriate time after the injection. The patient reverted a vas score of 7 prior to the procedure and postprocedure vas of 1. POSTOP INSTRUCTIONS The patient was provided with a pain like to continue to record the patient's response to the target specific procedure prior to the patient's follow-up visit with the referring physician. Additionally, specific post injection care instructions and a contact number to our office were provided if concerns arise regarding the possible complications associated with procedure are suspected.
== END 2021-07-11 09:03 | disposition home or self-care (01) ==
LOC: RAD 07:55
PROVIDERS: PCP Family Medicine; Referring Provider Physical Medicine & Rehabilitation; Visit Provider Physical Medicine & Rehabilitation
DX: M46.1 Sacroiliitis, not elsewhere classified (principal); M53.3 Sacrococcygeal disorders, not elsewhere classified
CPT/HCPCS: 27096; J0702; J2250

== ENCOUNTER 2023-04-24 09:21 | Day surgery (SDC) | payer OTHER, SELFPAY ==
[2020-03-16 10:50] VITALS: BMI 24.4
--- NOTE | 2023-04-24 | PATH_ITS ---
[facility] Accession Number: [id number] No. of containers..01 Tissue . 01 Material submitted: . colon - ASCENDING POLYP . 01 Diagnosis: ASCENDING COLON POLYP, BIOPSY: Tubular adenoma. MRV 04/29/2023 1417 Local . 01 Electronically signed: . Chelsy Mariscal MD, Pathologist NPI- [id number] . 01 Gross description: . ASCENDING POLYP: Received in formalin is 1 fragment(s) of simon, soft tissue measuring 0.7 x 0.4 x 0.4 cm submitted entirely in 1 cassette(s) /EVERARDO 04/28/2023 1855 Local . 01 Pathologist provided ICD-10: D12.2 . 01 CPT . 077970 Specimen Comment: A courtesy copy of this report has been sent to [phone] Performed at: 01 [facility] [address] [place] [address], [place], [place] [id number] MD Yobany Santamaria MD Phone: [phone]
[2023-04-24] MEDS: LACTATED RINGERS 1,000 ML 100 ML IV (10:04)
[2023-04-24 10:18] VITALS: BP 139/83; PULSE 71; RESP 16; TEMP 36.6; O2SAT 99
--- NOTE | 2023-04-24 10:42 | PM.HP.1 ---
History of Present Illness History of Present Illness Date Patient Seen: 04/24/23 Time Patient Seen: 10:49 Date of Onset of Symptoms: 04/24/23 Chief complaint: SDC Narrative: H/o colon polyps is vague. No symptoms, last scope unsure. [facility] Medical History Facet arthropathy, lumbar Sacral region somatic dysfunction Status post nephrectomy Radiculopathy of leg Back pain Kidney stone Surgical History Status post splenectomy H/O lithotripsy Social History household members: significant other and family Smoking Status: Current every day smoker alcohol intake: current Meds Home Medications and Allergies Home Medications Medication Instructions Recorded Confirmed Type sertraline 50 mg tablet 50 mg PO DAILY 10/14/21 04/24/23 History Allergies Allergy/AdvReac Type Severity Reaction Status Date / Time ciprofloxacin [From Cipro] Allergy Intermediate facial Verified 04/24/23 10:05 redness and burning Review of Systems Review of Systems ROS: Yes All systems reviewed with the patient and are negative except as otherwise documented Exam Vital Signs (past 8 hours): - 04/24/23 10:18 Temperature 97.8 F Pulse Rate 71 Respiratory Rate 16 Blood Pressure 139/83 Pulse Oximetry 99 Oxygen Delivery Method Room Air Oxygen Delivery Method Room Air Const General: cooperative and comfortable Orientation: alert, awake and oriented x3 HENMT Head: normocephalic and atraumatic Ears: hearing grossly normal bilaterally Eyes Sclera: sclerae normal Neck Neck: trachea midline Resp Effort & Inspection: normal respiratory effort and able to speak in complete sentences Cardio Rate: regular rate Rhythm: regular rhythm GI Palpation: soft Skin General: turgor normal Neuro General: patient alert, patient awake and patient oriented x3 Cognition: normal cognition Psych Appearance: grossly normal Mental Status: mental status grossly normal Judgment: judgment good Assessment & Plan Assessment & Plan narrative: Colon cancer screening with colonoscopy and anesthesia Time Spent With Patient Time with patient: less than 30 minutes
--- NOTE | 2023-04-24 11:10 | PM.OP.COLON ---
Operative Date/Time/Diagnoses Date of procedure: 04/24/23 Time of procedure: 11:10 Pre-op diagnosis: Colon cancer screening Post-op diagnosis: same Procedure & Clinicians Study performed: Colonoscopy with cold snare polypectomy Same procedure as scheduled: Yes Indications: Colon cancer screening Surgeon: Farrah Inman Procedure Notes Procedure in detail: Preop diagnosis: Colon cancer screening Postop diagnosis: Same Operative procedure: Colonoscopy with cold snare polypectomy Surgeon: Jeannie Inman MD Findings: 4 mm sessile polyp in the ascending colon taken with cold snare Procedure: Patient placed in a lateral position. Rectal exam performed showing normal tone no masses. Colonoscope inserted into the rectum and advanced to ileocecal valve with minimal difficulty. Insufflation extraction of the scope and the above findings. Retroflex was included in the procedure. And in the ascending colon a 4 mm sessile polyp was taken with cold snare. Impression: Single polyp Plan: Repeat colonoscopy for screening purposes every 5 years. Await pathology of ascending colon polyp. Findings: polyp(s) (4 mm, sessile, ascending colon) Specimen(s): other (Ascending colon polyp) Complications: none Post-procedure Recommendations: Colonoscopy in 5 years Follow up: as needed Disposition: PACU
[2023-04-24 11:15] VITALS: BP 125/70; PULSE 57; RESP 20; TEMP 36.1; O2SAT 97
[2023-04-24 11:20] VITALS: BP 131/79; PULSE 54; RESP 18; O2SAT 97
[2023-04-24 11:25] VITALS: BP 143/83; PULSE 56; RESP 16; TEMP 36.4; O2SAT 98
== END 2023-04-24 11:39 | disposition home or self-care (01) ==
PROVIDERS: PCP Family Medicine; Referring Provider Surgery; Visit Provider Surgery
PROC: 0DJD8ZZ Inspection of Lower Intestinal Tract, Via Natural or Artificial Opening Endoscopic (ICD-10-PCS; CPT 45378; principal; 2023-04-24 10:15)
DX: Z12.11 Encounter for screening for malignant neoplasm of colon (principal); D12.2 Benign neoplasm of ascending colon
CPT/HCPCS: 45385; J2704